=== PATIENT | male | born 1935 | race Caucasian/White ===

== ENCOUNTER 2020-08-15 06:36 | Outpatient (REF) | payer MEDICARE, SELFPAY ==
[2020-08-15 07:16] LABS: MANUAL DIFF FLAG NO
[2020-08-15 07:34] LABS: Basophils Absolute Auto 0.1 X10*3/uL (0.0-0.2); Basophils Percent Auto 1.5 % (0-2); Eosinophils Absolute Auto 0.5 X10*3/uL (0.0-0.4); Hematocrit 40.2 % (42-52); Hemoglobin 13.1 g/dl (14.0-18.0); Imm Gran Abs Auto 0.01 X10*3/uL (0.00-0.03); Imm Gran Pct Auto 0.1 % (0.0-0.4); Immature Retic Fraction 2.7 % (2.3-13.4); Lymphocytes Absolute Auto 1.7 X10*3/uL (1.2-4.9); Lymphocytes Percent Auto 23.2 % (20-40); Mean Corpuscular HGB Conc 32.6 g/dl (31.0-36.0); Mean Platelet Volume 9.7 fL (9.4-12.4); Monocytes Absolute Auto 0.5 X10*3/uL (0.1-1.2); Monocytes Percent Auto 6.8 % (2-11); Neutrophils Absolute Auto 4.5 X10*3/uL (2.0-8.3); Neutrophils Percent Auto 61.4 % (45-73); Platelet Count 233 X10*3/uL (160-400); Red Blood Count 4.37 X10*6/uL (4.60-5.80); Red Cell Distribution Width 13.7 % (11.0-16.0); Retic HGB Equivalent 34.6 pg (30.0-35.0); Reticulocyte Percent 0.9 % (0.5-1.8); Reticulocytes Absolute 0.041 X10*6/uL (0.026-0.095); White Blood Count 7.3 X10*3/uL (4.8-10.8)
[2020-08-15 07:49] LABS: Alanine Aminotransferase 16 U/L (0-40); Albumin Level 3.9 g/dL (3.5-5.0); Alkaline Phosphatase 50 U/L (39-117); Anion Gap 12 (12-20); Aspartate Amino Transferase 20 U/L (5-37); Bilirubin Total 0.8 mg/dL (0.0-1.0); Blood Urea Nitrogen 22 mg/dL (9-16); C Reactive Protein 0.11 mg/dL (< or = 0.50); Calcium 9.1 mg/dL (8.4-10.2); Carbon Dioxide 26 mmol/L (22-29); Chloride 107 mmol/L (96-108); Cholesterol 144 mg/dL; Estimated Glomerular Filt Rate > 60; Glucose Fasting 90 mg/dL (60-99); HDL Cholesterol 42 mg/dL; Iron 81 mcg/dL (45-160); LDL Cholesterol Calculated 88 mg/dl; Percent Iron Saturation 38 % (15-50); Potassium 4.1 mmol/L (3.3-5.1); Sodium 141 mmol/L (135-145); Total Iron Binding Capacity 211 mcg/dL (228-428); Total Protein 7.2 g/dL (6.5-8.0); Triglycerides 70 mg/dL; Unsaturated Iron Binding 130 ug/dL
[2020-08-15 07:50] LABS: B Type Natriuretic Peptide 180 pg/mL (<100)
[2020-08-15 08:11] LABS: Ferritin 249 ng/mL (20-250); Thyroid Stimulating Hormone 4.13 uIU/mL (0.32-4.0); Vitamin D 25-OH Total 36.5 ng/mL (>30)
[2020-08-15 08:15] LABS: T4 Thyroxine 4.6 ug/dL (4.5-12.0)
[2020-08-15 08:16] LABS: Erythrocyte Sedimentation Rate 10 MM/HR (0-15)
[2020-08-15 09:15] LABS: Folate > 20.0 ng/mL (> or = 4.0); Vitamin B12 976 pg/mL (200-900)
== END 2020-08-15 06:37 | disposition home or self-care (01) ==
LOC: HO.LAB 06:36
PROVIDERS: Referring Provider Internal Medicine; Visit Provider Internal Medicine
DX: M81.0 Age-related osteoporosis without current pathological fracture (principal); G47.00 Insomnia, unspecified; N40.0 Benign prostatic hyperplasia without lower urinary tract symptoms; I35.0 Nonrheumatic aortic (valve) stenosis; R94.6 Abnormal results of thyroid function studies
CPT/HCPCS: 36415; 80053; 80061; 82306; 82607; 82728; 82746; 83540; 83880; 84436; 84443; 85025; 85045; 85652; 86140

== ENCOUNTER 2020-08-20 08:18 | Emergency (ER) | payer MEDICARE, SELFPAY ==
--- NOTE | ~2020-08-20 | XR_ITS ---
EXAMINATION: XR CHEST CLINICAL INFORMATION: Syncope COMPARISON: Previous chest x-rays from 2015 and 2016 TECHNIQUE: 2 views of the chest were obtained. FINDINGS: The cardiac silhouette is upper normal in size. There is volume loss to the right upper lobe and retraction of the right pulmonary hilum. There is increasing pleural and parenchymal disease in the right upper lobe. The lungs are otherwise clear. There is no pleural effusion or pneumothorax. There are degenerative changes of the spine. XR/XR chest 2V IMPRESSION: Increasing volume loss to the right upper lobe and increasing pleural and parenchymal disease compared to previous chest x-rays from 2015 and 2016. Infectious, inflammatory and neoplastic processes should be considered. This could be better assessed with chest CT scan if clinically indicated.
--- NOTE | ~2020-08-20 | CT_ITS ---
EXAMINATION: CT HEAD WITHOUT CONTRAST CLINICAL INFORMATION: Syncope. Head trauma. COMPARISON: None TECHNIQUE: Contiguous axial imaging was performed from the skull base to vertex without intravenous administration of contrast. This CT examination was performed using dose optimization techniques as appropriate, variously including the following: *Automated exposure control *Adjustment of mA and/or kV according to patient size (this includes techniques or standardized protocols for targeted exams where dose is matched to indication/reason for exam; i.e. extremities or head) *Use of iterative reconstruction technique DLP: 854 mGy-cm FINDINGS: There is no evidence of an extra-axial collection. There is no evidence of intra-axial or extra-axial hemorrhage. The ventricles and extra-axial CSF spaces are prominent suggestive of generalized atrophy. There is nonspecific periventricular white matter disease. There is an old right basal ganglia lacunar infarct. No mass, mass effect or acute infarct is seen. No skull fracture is seen. There is left maxillary sinus disease. Paranasal sinuses, mastoid air cells and middle ears are otherwise clear. CT/CT head/brain wo con IMPRESSION: No acute findings. Generalized atrophy, nonspecific periventricular white matter disease and old right basal ganglia lacunar infarct. Left maxillary sinus disease.
--- NOTE | 2020-08-20 08:25 | ECG_ITS ---
Test Reason : SYNCOPE Blood Pressure : / mmHG Vent. Rate : 057 BPM Atrial Rate : 057 BPM P-R Int : 240 ms QRS Dur : 104 ms QT Int : 436 ms P-R-T Axes : 064 -64 024 degrees QTc Int : 424 ms Sinus bradycardia with 1st degree A-V block Left anterior fascicular block Septal infarct (cited on or before 06-FEB-2016) Abnormal ECG When compared with ECG of 08-FEB-2016 07:42, No significant change was found Referred By: Palma Ramirez Electronically Signed By:Ian Hedrick
[2020-08-20 08:29] VITALS: BP 122/80; BP 145/61; PULSE 57; PULSE 60; RESP 16; TEMP 36.5; O2SAT 99; BMI 22.4
--- NOTE | 2020-08-20 08:59 | ED.SYNCOPE ---
HPI - Syncope General Chief Complaint: Syncope Stated Complaint: syncope Time Seen by Provider: 08/20/20 08:25 Source: patient and EMS Mode of arrival: EMS Limitations: no limitations History of Present Illness HPI narrative: 85-year-old male with a past medical history of osteoporosis, benign prostatic hyperplasia and severe aortic stenosis on echocardiogram 05/2019 (normal LV chamber size and systolic function with LVEF 60%) here status post syncopal episode. Patient tells me that today he was on his morning walk when he started to feel lightheaded and sat down. He tells me the next thing he knew he was lying on the ground being aroused by a aide at the [employer]. He tells me that he was incontinent of urine. He was brought in by EMS. He denies presyncopal symptoms of palpitations, chest pain or shortness of breath. He tells me that he had a similar episode on Saturday of this week in which he felt very lightheaded and then woke up on the ground covered in sweat. On arrival to the ER he is feeling improved. He does have some mild nausea but denies any other symptoms. He tells me that he is followed by [facility] Dr. Nobles and last saw him May of 2020. At that time it was recommended that he speak to the cardiothoracic team about having aortic valve replacement however the patient declined this due to many concerns some of which include risk for COVID-19 infection. He tells me that he has a follow-up appointment this November and an echocardiogram at that time. He tells me he is unhappy being here is he is worried about COVID and does not want to stay in the hospital. Related Data Previous Rx's Medication Instructions Recorded alendronate 70 mg tablet 70 mg PO QWEEK #12 cap 06/01/20 Allergies Allergy/AdvReac Type Severity Reaction Status Date / Time No Known Allergies Allergy Unverified 03/17/20 15:31 Review of Systems Review of Systems: Yes all other systems are reviewed and are negative Constitutional: Constitutional: Reports no additional constitutional complaints, Denies body ache(s), Denies chills, Denies fever(s), Denies headache(s) and Denies weakness Eyes: Eyes: Reports no additional eye complaints and Denies change in vision ENT: Reports system reviewed and no additional complaints, except as documented, Reports dizziness, Denies headache(s), Denies nasal congestion, Denies nasal discharge and Denies neck pain Cardiovascular: Cardiovascular: Reports no additional cardiovascular complaints, Denies chest pain, Reports syncope, Denies leg edema and Denies dyspnea Respiratory: Respiratory: Reports no additional respiratory complaints, Denies cough and Denies dyspnea Gastrointestinal: Gastrointestinal: Reports no additional gastrointestinal complaints, Denies abdominal pain, Denies diarrhea, Reports nausea and Denies vomiting Genitourinary: Genitourinary: Denies urinary incontinence Musculoskeletal: Musculoskeletal: Reports no additional musculoskeletal complaints, Denies back pain, Denies arthralgias, Denies joint swelling, Denies neck pain, Denies numbness and Denies tingling Integumentary/Breasts: Skin/Breast: Reports system reviewed and no additional complaints, except as docu and Denies rash Neurologic: Reports system reviewed and no additional complaints, except as documented, Denies Abnormal speech present, Reports dizziness, Reports syncope, Denies headache(s), Denies numbness, Denies tingling and Denies weakness PMFSH Past Medical History Attestation statement: The following information was validated with the patient. Source: old records reviewed and nursing notes reviewed Medical History BPH (benign prostatic hyperplasia) Degenerative disc disease Insomnia Left carotid stenosis Osteoporosis Pulmonary nodule Severe aortic stenosis Surgical History H/O right inguinal hernia repair History of tonsillectomy and adenoidectomy Trochanteric fracture of right femur Social History Social History Advance Directives: No Advance Directives Information Provided: Yes Physical Exam Vital Signs: Vital Signs: Last Vital Signs Temp 97.7 F 08/20/20 08:29 Pulse 90 08/20/20 14:05 Resp 20 08/20/20 14:05 BP 138/69 08/20/20 14:05 Pulse Ox 99 08/20/20 14:05 Body Mass Index 22.4 Const: General: cooperative, comfortable and no acute distress Orientation/consciousness: patient oriented x3 Limitations: no limitations HENMT: Head: Yes normal to inspection Ears: hearing grossly normal bilaterally General nose exam: Normal external nose present Face and sinus: Yes normal facial exam Mouth: Normal oral and palatal mucosa present Throat: Yes posterior oropharynx normal Eyes: General: appearance normal, both eyes and all related structures Pupils: Equal, round and reactive pupils present Neck: Neck: Yes normal visual inspection Chest: Chest palpation & inspection: normal inspection of the chest Resp: Effort & Inspection: normal respiratory effort Auscultation: clear to auscultation bilaterally Cardio: Rate: regular rate Rhythm: regular rhythm Peripheral pulses: Peripheral pulses 2+ throughout GI: Inspection: Yes normal to inspection Palpation (GI): Soft to palpation and nontender Auscultation: normal bowel sounds Back/Spine/Pelvis: Thoracic/Lumbar Spine: thoracic and lumbar spine normal to inspection Skin: General skin exam: no rashes or lesions noted Neuro: General: patient oriented x3, no focal motor deficits and normal sensation to monofilament Cranial nerves: Yes Equal, round and reactive pupils present Cognition (Neuro): normal cognition Speech: No Abnormal speech present Gait exam (Neuro): Normal gait present Motor exam (neuro): 5/5 motor strength present throughout Extrem: General: Yes normal to inspection NIH Stroke Scale Internal: Initial- Upon Arrival Level of Consciousness: Alert Level of Consciousness Questions: Answers both questions correctly Level of Consciousness Commands: Performs both tasks correctly Best Gaze: Normal Visual: No visual loss Facial Palsy: Normal Motor Arm (Right): No drift Motor Arm (Left): No drift Motor Leg (Right): No drift Motor Leg (Left): No drift Limb Ataxia: Absent Sensory: Normal Best Language: No aphasia Dysarthia: Normal Extinction and Inattention: No abnormality Score: 0 Course Course Course Narrative: 85 yo male with past medical history of BPH, osteoporosis, severe aortic stenosis here s/p syncopal episode. Patient tells me this is his syncopal episode. Followed by Dr Nobles at [facility] who has recommended consult for AVR in the past but patient has refused d/t multiple concerns including but not limited to COVID risk. Patient initially refused transport from EMS and they were on scene for 1 hr before convincing the patient to come to the ED. Patient tells me he does not want to be admitted to the hospital but agrees to have testing done in the hospital. On arrival stable vital signs. Complaining of some nausea. Will check EKG, CXR, labs, UA, CT head. 1000-After CT scan patient vomiting x 1 with some associated dizziness. Went to evaluate the patient. Normal visual exam, normal cerebellar function, normal gait. Consider cerebellar infarct however normal neurological exam with negative score with 2nd episode this week so not TPA candidate. However d/t age and comorbidities consider obtaining MRI brain. Labs reviewed which show mildly elevated troponin which is likely from underlying aortic stenosis and not ACS. Plan for repeat 3 hr troponin. Mildly positive orthostatics. Will order gentle IV hydration (500ml). 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 CXR shows increasing volume loss and increasing pleural and parenchymal disease on CXR concerning for infectious, inflammatory and neoplastic process. Discussed CT findings with patient. Discussed CXR and recommended he f/u with his PCP for outpatient CT chest. No cough or SOB. Stable saturations. Less likely infectious with no cough, fever or leukocytosis. I discussed with patient I would like to obtain an MRI of the brain however he declined this. He tells me he has severe claustrophobia and offered pre-medication but patient declines this. He is aware he may have posterior stroke causing his symptoms and his symptoms may progress or worsen or cause debilitating neurological symptoms. Plan for NSB, antiemetic, repeat troponin. Patient is agreeable to this then wants discharge. 1330-Repeat troponin flat. I again went to speak to the patient and recommended he stay in the hospital and be admitted but he declined this. I again recommended obtaining an MRI of his brain to r/o acute CVA but patient refuses. I offered to call his and discuss all this with her but he tells me he does not want me to speak to anyone in his family. As he is his own HCP and alert and oriented I have respected his wishes. He will sign out against medical advice. I have explained to him he is welcome to return at any time. I spent >1 hr speaking to this patient about his care. MDM - Syncope MDM Narrative Medical decision making narrative: Worsening aortic stenosis, arrythmia, ACS, CVA vs lesion vs ICH, electrolyte abnormality, anemia, orthostatic hypotension, underlying infection (PNA, UTI) Medical Records Attestation: I reviewed the patient's medical records. Lab Data Attestation: I reviewed the patient's lab results. Result diagrams: 08/20/20 09:16 08/20/20 09:16 Labs: Lab Results 08/20/20 08/20/20 08/20/20 Range/Units 09:16 09:16 09:16 WBC 8.2 (4.8-10.8) X10*3/uL RBC 4.32 L (4.60-5.80) X10*6/uL Hgb 13.0 L (14.0-18.0) g/dl Hct 39.3 L (42-52) % MCV 91.0 (80-98) fL MCH 30.1 (27.0-33.0) pg MCHC 33.1 (31.0-36.0) g/dl RDW 13.4 (11.0-16.0) % Plt Count 210 (160-400) X10*3/uL MPV 9.8 (9.4-12.4) fL Immature Gran % (Auto) 0.2 (0.0-0.4) % Neut % (Auto) 79.7 H (45-73) % Lymph % (Auto) 11.8 L (20-40) % [place] % (Auto) 5.6 (2-11) % Eos % (Auto) 1.8 (0-4) % Baso % (Auto) 0.9 (0-2) % Lymph # (Auto) 1.0 L (1.2-4.9) X10*3/uL [place] # (Auto) 0.5 (0.1-1.2) X10*3/uL Eos # (Auto) 0.2 (0.0-0.4) X10*3/uL Baso # (Auto) 0.1 (0.0-0.2) X10*3/uL Abs Immat Gran (auto) 0.02 (0.00-0.03) X10*3/uL Absolute Neuts (auto) 6.6 (2.0-8.3) X10*3/uL Absolute Nucleated RBC 0.000 (0.0-0.012) X10*3/uL Nucleated RBC % (auto) 0.0 (0.0-0.2) /100WBC PT 15.0 H (10.8-13.0) SEC INR 1.3 H (0.9-1.1) Sodium 139 (135-145) mmol/L Potassium 4.8 (3.3-5.1) mmol/L Chloride 104 (96-108) mmol/L Carbon Dioxide 24 (22-29) mmol/L Anion Gap 16 (12-20) BUN 22 H (9-16) mg/dL Creatinine 0.96 (0.5-1.4) mg/dL Estim Creat Clear Calc 61.7 Estimated GFR > 60 Random Glucose 109 (60-115) mg/dL Calcium 9.0 (8.4-10.2) mg/dL Magnesium 2.0 (1.6-2.6) mg/dL Total Bilirubin 0.7 (0.0-1.0) mg/dL Direct Bilirubin 0.3 (0.0-0.5) mg/dL AST 22 (5-37) U/L ALT 18 (0-40) U/L Alkaline Phosphatase 50 (39-117) U/L Troponin I High Sens (<3.5-35.0) ng/L Total Protein 7.2 (6.5-8.0) g/dL Albumin 4.0 (3.5-5.0) g/dL 08/20/20 08/20/20 Range/Units 09:16 12:37 WBC (4.8-10.8) X10*3/uL RBC (4.60-5.80) X10*6/uL Hgb (14.0-18.0) g/dl Hct (42-52) % MCV (80-98) fL MCH (27.0-33.0) pg MCHC (31.0-36.0) g/dl RDW (11.0-16.0) % Plt Count (160-400) X10*3/uL MPV (9.4-12.4) fL Immature Gran % (Auto) (0.0-0.4) % Neut % (Auto) (45-73) % Lymph % (Auto) (20-40) % [place] % (Auto) (2-11) % Eos % (Auto) (0-4) % Baso % (Auto) (0-2) % Lymph # (Auto) (1.2-4.9) X10*3/uL [place] # (Auto) (0.1-1.2) X10*3/uL Eos # (Auto) (0.0-0.4) X10*3/uL Baso # (Auto) (0.0-0.2) X10*3/uL Abs Immat Gran (auto) (0.00-0.03) X10*3/uL Absolute Neuts (auto) (2.0-8.3) X10*3/uL Absolute Nucleated RBC (0.0-0.012) X10*3/uL Nucleated RBC % (auto) (0.0-0.2) /100WBC PT (10.8-13.0) SEC INR (0.9-1.1) Sodium (135-145) mmol/L Potassium (3.3-5.1) mmol/L Chloride (96-108) mmol/L Carbon Dioxide (22-29) mmol/L Anion Gap (12-20) BUN (9-16) mg/dL Creatinine (0.5-1.4) mg/dL Estim Creat Clear Calc Estimated GFR Random Glucose (60-115) mg/dL Calcium (8.4-10.2) mg/dL Magnesium (1.6-2.6) mg/dL Total Bilirubin (0.0-1.0) mg/dL Direct Bilirubin (0.0-0.5) mg/dL AST (5-37) U/L ALT (0-40) U/L Alkaline Phosphatase (39-117) U/L Troponin I High Sens 20.2 24.2 (<3.5-35.0) ng/L Total Protein (6.5-8.0) g/dL Albumin (3.5-5.0) g/dL Imaging Data Chest x-ray: Attestation: I personally reviewed and interpreted this imaging study as follows: Radiologist's impression: IMPRESSION: Increasing volume loss to the right upper lobe and increasing pleural and parenchymal disease compared to previous chest x-rays from 2015 and 2016. Infectious, inflammatory and neoplastic processes should be considered. This could be better assessed with chest CT scan if clinically indicated. CT scan - head: Attestation: I personally reviewed and interpreted this imaging study as follows: Radiologist's impression: No acute findings. Generalized atrophy, nonspecific periventricular white matter disease and old right basal ganglia lacunar infarct. Left maxillary sinus disease. ECG Data Attestation: I personally reviewed and interpreted this ECG as follows: Interpretation: Sinus bradycardia with 1st degree AV block, normal qrs, prolonged qt Critical Care Time Critical Care Time Critical Care Time: Yes Total Critical Care Time: 90 Attestation: Lengthy discussions, re-evaluations, discussing AMA Discharge Plan Discharge Clinical Impression: Syncope, Abnormal diagnostic test result Patient Disposition: Left Against Medical Advice Instructions: Syncope (ED) Additional Instructions: Your chest x-ray shows a lesion in your right upper lobe. Recommendation is to have an outpatient CT scan of your chest which should be ordered by your PCP. Follow-up with Dr DIETRICH for this as discussed. Your CT scan also shows an old stroke. It was recommended that you stay in the hospital for additional testing but you declined this. It was then recommended you have a MRI of your brain but you declined this. You are aware that we have not found the cause of your fainting episodes. You are also aware that if you go home you may have an additional episode and fall and/or injure yourself further. You may at home. Follow-up with Dr DIETRICH and Dr Nobles next week. Prescriptions: No Action alendronate 70 mg tablet 70 mg PO QWEEK Qty: 12 RF: 3 Referrals: Esteban Dietrich MD [Primary Care Provider] - 2 days Og Nobles MD [Physician] - 2 days Stand Alone Forms: Against Medical Advice Interventions: ED Discharge Assessment Last Done: 08/20/20 14:32 Discharge Date/Time: 08/20/20 14:32
[2020-08-20 09:26] LABS: MANUAL DIFF FLAG NO
[2020-08-20 09:29] LABS: Basophils Absolute Auto 0.1 X10*3/uL (0.0-0.2); Basophils Percent Auto 0.9 % (0-2); Eosinophils Absolute Auto 0.2 X10*3/uL (0.0-0.4); Eosinophils Percent Auto 1.8 % (0-4); Hematocrit 39.3 % (42-52); Imm Gran Abs Auto 0.02 X10*3/uL (0.00-0.03); Imm Gran Pct Auto 0.2 % (0.0-0.4); Lymphocytes Percent Auto 11.8 % (20-40); Mean Corpuscular HGB Conc 33.1 g/dl (31.0-36.0); Mean Corpuscular Hemoglobin 30.1 pg (27.0-33.0); Mean Platelet Volume 9.8 fL (9.4-12.4); Monocytes Absolute Auto 0.5 X10*3/uL (0.1-1.2); Monocytes Percent Auto 5.6 % (2-11); Neutrophils Absolute Auto 6.6 X10*3/uL (2.0-8.3); Neutrophils Percent Auto 79.7 % (45-73); Platelet Count 210 X10*3/uL (160-400); Red Blood Count 4.32 X10*6/uL (4.60-5.80); Red Cell Distribution Width 13.4 % (11.0-16.0); White Blood Count 8.2 X10*3/uL (4.8-10.8)
[2020-08-20 09:36] LABS: INTERNATIONAL NORM RATIO 1.3 (0.9-1.1)
[2020-08-20 10:01] LABS: Alanine Aminotransferase 18 U/L (0-40); Alkaline Phosphatase 50 U/L (39-117); Anion Gap 16 (12-20); Aspartate Amino Transferase 22 U/L (5-37); Bilirubin Direct 0.3 mg/dL (0.0-0.5); Bilirubin Total 0.7 mg/dL (0.0-1.0); Blood Urea Nitrogen 22 mg/dL (9-16); Carbon Dioxide 24 mmol/L (22-29); Chloride 104 mmol/L (96-108); Creatinine Clr Calc Pharmacy 61.7; Estimated Glomerular Filt Rate > 60; Glucose Random 109 mg/dL (60-115); Potassium 4.8 mmol/L (3.3-5.1); Sodium 139 mmol/L (135-145); Total Protein 7.2 g/dL (6.5-8.0)
[2020-08-20 10:03] LABS: Troponin-I High Sensitivity 20.2 ng/L (<3.5-35.0)
[2020-08-20 10:18] VITALS: BP 167/60; PULSE 67
[2020-08-20 10:19] VITALS: BP 147/57; BP 150/63; PULSE 63; PULSE 79
[2020-08-20] MEDS: 0.9 % Sodium Chloride 500 ML 999 ML IV (10:29)
[2020-08-20] MEDS: ondansetron HCL 4 MG/2 ML VIAL IVPUSH (10:29)
[2020-08-20 13:14] LABS: Troponin-I High Sensitivity 24.2 ng/L (<3.5-35.0)
[2020-08-20 14:05] VITALS: BP 138/69; PULSE 90; RESP 20; O2SAT 99
== END 2020-08-20 14:32 | disposition left against medical advice (07) ==
PROVIDERS: Nurse Practitioner Family; Emergency Provider Emergency Medicine; PCP Internal Medicine
DX: R55 Syncope and collapse (principal); R91.8 Other nonspecific abnormal finding of lung field
CPT/HCPCS: 36415; 70450; 71046; 80048; 80076; 83735; 84484; 85025; 85610; 93005; 96361; 96374; 99283; 99291; 99292; J2405

== ENCOUNTER 2020-11-21 06:50 | Outpatient (REF) | payer MEDICARE, SELFPAY ==
[2020-11-21 07:21] LABS: MANUAL DIFF FLAG NO
[2020-11-21 07:35] LABS: Basophils Absolute Auto 0.1 X10*3/uL (0.0-0.2); Eosinophils Absolute Auto 0.5 X10*3/uL (0.0-0.4); Eosinophils Percent Auto 5.1 % (0-4); Hematocrit 40.9 % (42-52); Hemoglobin 13.4 g/dl (14.0-18.0); Imm Gran Abs Auto 0.03 X10*3/uL (0.00-0.03); Imm Gran Pct Auto 0.3 % (0.0-0.4); Lymphocytes Absolute Auto 1.3 X10*3/uL (1.2-4.9); Lymphocytes Percent Auto 14.2 % (20-40); Mean Corpuscular HGB Conc 32.8 g/dl (31.0-36.0); Mean Corpuscular Hemoglobin 29.9 pg (27.0-33.0); Mean Corpuscular Volume 91.3 fL (80-98); Mean Platelet Volume 9.6 fL (9.4-12.4); Monocytes Absolute Auto 0.7 X10*3/uL (0.1-1.2); Monocytes Percent Auto 8.1 % (2-11); Neutrophils Absolute Auto 6.4 X10*3/uL (2.0-8.3); Neutrophils Percent Auto 71.3 % (45-73); Platelet Count 198 X10*3/uL (160-400); Red Blood Count 4.48 X10*6/uL (4.60-5.80); Red Cell Distribution Width 13.2 % (11.0-16.0)
[2020-11-21 08:31] LABS: Alanine Aminotransferase 15 U/L (0-40); Albumin Level 3.9 g/dL (3.5-5.0); Alkaline Phosphatase 55 U/L (39-117); Anion Gap 13 (12-20); Aspartate Amino Transferase 19 U/L (5-37); Bilirubin Total 0.5 mg/dL (0.0-1.0); Blood Urea Nitrogen 25 mg/dL (9-16); Carbon Dioxide 25 mmol/L (22-29); Chloride 105 mmol/L (96-108); Cholesterol 152 mg/dL; Estimated Glomerular Filt Rate > 60; Glucose Random 94 mg/dL (60-115); HDL Cholesterol 43 mg/dL; LDL Cholesterol Calculated 97 mg/dl; Potassium 3.8 mmol/L (3.3-5.1); Sodium 139 mmol/L (135-145); Total Protein 7.3 g/dL (6.5-8.0); Triglycerides 64 mg/dL
[2020-11-21 08:32] LABS: Free T4 (Free Thyroxine) 0.82 ng/dL (0.71-1.85)
== END 2020-11-21 06:51 | disposition home or self-care (01) ==
LOC: HO.LAB 06:50
PROVIDERS: PCP Internal Medicine; Visit Provider Internal Medicine
DX: I25.10 Atherosclerotic heart disease of native coronary artery without angina pectoris (principal); E78.00 Pure hypercholesterolemia, unspecified
CPT/HCPCS: 36415; 80053; 80061; 84439; 84443; 85025

== ENCOUNTER 2020-12-21 09:43 | Outpatient (REF) | payer MEDICARE, SELFPAY ==
--- NOTE | ~2020-12-21 | FL_ITS ---
EXAMINATION: FL BARIUM SWALLOW CLINICAL INFORMATION: Dysphagia. COMPARISON: None TECHNIQUE: Barium swallow examination is performed using fluoroscopic evaluation in addition to multiple fluoroscopic spot views. The patient is imaged both upright and prone and using both thick and thin sulfate along with effervescent granules. Fluoroscopy time: 1.7 minutes DAP: 4.497 Gycm2 Images: 34 FINDINGS: Following oral administration of thin, thick barium and barium-coated turkey, there is normal propagation of bolus from the oral cavity through a tortuous and ectatic proximal thoracic esophagus into mid and distal esophagus without obstruction or narrowing. The tortuosity of proximal thoracic esophagus and trachea is noted secondary to significant scarring in the right upper lobe. No laryngeal penetration or aspiration was seen. Incidentally noted is aortic stent valve recently inserted as per patient. FL/FL barium swallow IMPRESSION: Tortuous and ectatic proximal thoracic esophagus and proximal trachea secondary to right upper lobe scarring. No intraluminal filling defect or narrowing seen. The GE junction is widely patent.
== END 2020-12-21 09:44 | disposition home or self-care (01) ==
LOC: HO.XRAY 09:43
PROVIDERS: PCP Internal Medicine; Visit Provider Internal Medicine
DX: K22.8 Other specified diseases of esophagus (principal)
CPT/HCPCS: 74220

== ENCOUNTER 2021-03-22 13:07 | Outpatient (REF) | payer MEDICARE, SELFPAY | END 2021-03-22 13:08 | disposition home or self-care (01) | LOC: HO.LAB 13:07 | PROVIDERS: PCP Internal Medicine; Visit Provider Internal Medicine | DX: Z20.822 Contact with and (suspected) exposure to COVID-19 (principal) | CPT/HCPCS: C9803; U0003; U0005 ==

== ENCOUNTER 2021-08-29 10:57 | Outpatient (REF) | payer MEDICARE, SELFPAY ==
[2021-08-29 11:25] LABS: MANUAL DIFF FLAG NO
[2021-08-29 11:50] LABS: Basophils Absolute Auto 0.1 X10*3/uL (0.0-0.2); Basophils Percent Auto 1.3 % (0-2); Eosinophils Absolute Auto 0.4 X10*3/uL (0.0-0.4); Eosinophils Percent Auto 5.1 % (0-4); Hematocrit 40.4 % (42.0-52.0); Hemoglobin 12.8 g/dl (14.0-18.0); Imm Gran Abs Auto 0.02 X10*3/uL (0.00-0.03); Imm Gran Pct Auto 0.3 % (0.0-0.4); Lymphocytes Absolute Auto 1.8 X10*3/uL (1.2-4.9); Lymphocytes Percent Auto 25.6 % (20-40); Mean Corpuscular HGB Conc 31.7 g/dl (31.0-36.0); Mean Corpuscular Hemoglobin 29.6 pg (27.0-33.0); Mean Corpuscular Volume 93.5 fL (80.0-98.0); Mean Platelet Volume 9.8 fL (9.4-12.4); Monocytes Absolute Auto 0.6 X10*3/uL (0.1-1.2); Monocytes Percent Auto 8.9 % (2-11); Neutrophils Percent Auto 58.8 % (45-73); Platelet Count 223 X10*3/uL (160-400); Red Blood Count 4.32 X10*6/uL (4.60-5.80); Red Cell Distribution Width 13.6 % (11.0-16.0); White Blood Count 6.9 X10*3/uL (4.8-10.8)
[2021-08-29 12:49] LABS: Anion Gap 12 (12-20); Blood Urea Nitrogen 22 mg/dL (9-16); Calcium 9.3 mg/dL (8.4-10.2); Carbon Dioxide 29 mmol/L (22-29); Chloride 103 mmol/L (96-108); Estimated Glomerular Filt Rate > 60; Glucose Random 88 mg/dL (60-115); Potassium 5.1 mmol/L (3.3-5.1); Sodium 139 mmol/L (135-145)
== END 2021-08-29 10:58 | disposition home or self-care (01) ==
LOC: HO.LAB 10:57
PROVIDERS: PCP Internal Medicine; Visit Provider Internal Medicine Cardiovascular Disease
DX: I35.0 Nonrheumatic aortic (valve) stenosis (principal)
CPT/HCPCS: 36415; 80048; 85025

== ENCOUNTER 2021-12-25 07:05 | Outpatient (REF) | payer MEDICARE, SELFPAY ==
[2021-12-25 07:20] LABS: MANUAL DIFF FLAG NO
[2021-12-25 07:41] LABS: Basophils Absolute Auto 0.1 X10*3/uL (0.0-0.2); Basophils Percent Auto 1.1 % (0-2); Eosinophils Absolute Auto 0.8 X10*3/uL (0.0-0.4); Hematocrit 41.8 % (42.0-52.0); Hemoglobin 13.5 g/dl (14.0-18.0); Imm Gran Abs Auto 0.02 X10*3/uL (0.00-0.03); Imm Gran Pct Auto 0.3 % (0.0-0.4); Lymphocytes Absolute Auto 1.8 X10*3/uL (1.2-4.9); Lymphocytes Percent Auto 25.8 % (20-40); Mean Corpuscular HGB Conc 32.3 g/dl (31.0-36.0); Mean Corpuscular Hemoglobin 29.2 pg (27.0-33.0); Mean Corpuscular Volume 90.5 fL (80.0-98.0); Mean Platelet Volume 9.3 fL (9.4-12.4); Monocytes Absolute Auto 0.6 X10*3/uL (0.1-1.2); Neutrophils Absolute Auto 3.7 x10*3/uL (2.0-8.3); Neutrophils Percent Auto 52.8 % (45-73); Platelet Count 208 X10*3/uL (160-400); Red Blood Count 4.62 X10*6/uL (4.60-5.80); Red Cell Distribution Width 14.1 % (11.0-16.0)
[2021-12-25 08:09] LABS: Alanine Aminotransferase 16 U/L (0-40); Albumin Level 4.1 g/dL (3.5-5.0); Alkaline Phosphatase 54 U/L (39-117); Anion Gap 12 (12-20); Aspartate Amino Transferase 19 U/L (5-37); Bilirubin Total 0.4 mg/dL (0.0-1.0); Blood Urea Nitrogen 23 mg/dL (9-16); C Reactive Protein 0.37 mg/dL (< or = 0.50); Calcium 9.8 mg/dL (8.4-10.2); Carbon Dioxide 26 mmol/L (22-29); Chloride 106 mmol/L (96-108); Cholesterol 163 mg/dL; Estimated Glomerular Filt Rate > 60; Glucose Random 91 mg/dL (60-115); HDL Cholesterol 40 mg/dL; LDL Cholesterol Calculated 106 mg/dl; Potassium 4.4 mmol/L (3.3-5.1); Sodium 140 mmol/L (135-145); Total Protein 7.6 g/dL (6.5-8.0); Triglycerides 88 mg/dL
[2021-12-25 08:10] LABS: B Type Natriuretic Peptide 136 pg/mL (<100)
[2021-12-25 08:27] LABS: Erythrocyte Sedimentation Rate 14 MM/HR (0-15)
[2021-12-25 08:31] LABS: Free T4 (Free Thyroxine) 0.91 ng/dL (0.71-1.85); Thyroid Stimulating Hormone 4.32 uIU/mL (0.32-4.0)
[2021-12-25 09:16] LABS: Folate > 20.0 ng/mL (> or = 4.0); Vitamin B12 926 pg/mL (200-900)
== END 2021-12-25 07:06 | disposition home or self-care (01) ==
LOC: HO.LAB 07:05
PROVIDERS: Absent Provider Internal Medicine; PCP Internal Medicine; Visit Provider Internal Medicine
DX: I25.10 Atherosclerotic heart disease of native coronary artery without angina pectoris (principal); E78.00 Pure hypercholesterolemia, unspecified
CPT/HCPCS: 36415; 80053; 80061; 82607; 82746; 83880; 84439; 84443; 85025; 85652; 86140

== ENCOUNTER 2022-01-12 14:55 | Outpatient (REF) | payer MEDICARE, SELFPAY ==
--- NOTE | ~2022-01-12 | MM_ITS ---
EXAMINATION: BONE DENSITOMETRY CLINICAL INDICATION: Age-related osteoporosis without current pathological fracture. COMPARISON: Previous BD dated 07/08/2018 and baseline BD dated 04/13/2016. TECHNIQUE: Using a [employer] DXA System (software version: 13.1) manufactured by [employer] dual-energy x-ray absorptiometry was performed of the lumbar spine and left hip. The images are of good technical quality. Summary results are attached. FINDINGS: AP SPINE L1-L2 (excluding L3 and L4): The data of L1-L4 has been changed to exclude the L3 and L4 vertebral bodies, because degenerative changes at these levels may cause overestimation of lumbar spine density. Current: BMD 1.059 g/cm2, Z-score -0.3, T-score -1.2, osteopenia, 8.1% increase from previous, 11.0% increase from baseline (<5% change is not significant). Prior: BMD 0.980 g/cm2. Baseline: BMD 0.954 g/cm2. LEFT FEMUR, NECK: Current: BMD 0.618 g/cm2, Z-score -1.7, T-score -3.5, osteoporosis. Prior: BMD 0.569 g/cm2. Baseline: BMD 0.487 g/cm2. LEFT FEMUR, TOTAL: Current: BMD 0.728 g/cm2, Z-score -1.2, T-score -2.6, osteoporosis, 17.0% increase from previous, 38.4% increase from baseline (<5% change is not significant). Prior: BMD 0.622 g/cm2. Baseline: BMD 0.526 g/cm2. IDENTIFIED RISK FACTORS: Family history (parental hip fracture), history of fracture (adult). HISTORY OF FRACTURE: Femur/hip. MEDICATIONS: Bisphosphonate, multivitamin. MM/XR DEXA axial skeleton IMPRESSION: 1. DIAGNOSIS: Osteoporosis based on the lowest T-score value of -3.5 in the femoral neck applying World Health Organization criteria. 2. 10-YEAR FRACTURE RISK PREDICTION, FRAX: According to the guidelines, FRAX calculation should only be performed on patients in the osteopenia bone density category. Therefore, FRAX was not performed on this patient. 3. Treatment Recommendations: NOF guidelines recommend consideration for treatment in postmenopausal women and men age 50 and older presenting with the following: -A hip or vertebral (clinical or morphometric) fracture. -T-score less than or equal to -2.5 at the femoral neck or spine after appropriate evaluation to exclude secondary causes. -Low bone mass at the hip or spine and a 10-year fracture probability by FRAX of greater than or equal to 3% for hip fracture or greater than or equal to 20% for major osteoporotic fracture based on the [place] adapted WHO algorithm. 4. Other Recommendations: All treatment decisions require clinical judgment and consideration of individual patient factors, including patient preferences, comorbidities, previous drug use, risk factors not captured in the FRAX model (e.g. frailty, falls, vitamin D deficiency, increased bone turnover, interval significant decline in bone density) and possible under or overestimation of fracture risk by FRAX. Additional medical evaluation for secondary cause of low bone mineral density may be appropriate. FUTURE SCAN RECOMMENDATION: People with diagnosed cases of osteoporosis or at high risk for fracture should have regular bone mineral density tests. For patients eligible for Medicare, routine testing is allowed once every 2 years. The testing frequency can be increased to one year for patients who have rapidly progressing disease, those who are receiving or discontinuing medical therapy to restore bone mass, or have additional risk factors.
== END 2022-01-12 14:56 | disposition home or self-care (01) ==
LOC: HO.MAMMO 14:55
PROVIDERS: PCP Internal Medicine; Visit Provider Internal Medicine
DX: M81.0 Age-related osteoporosis without current pathological fracture (principal); Z79.899 Other long term (current) drug therapy
CPT/HCPCS: 77080

== ENCOUNTER 2022-08-11 07:23 | Outpatient (REF) | payer MEDICARE, SELFPAY ==
[2022-08-11 07:35] LABS: MANUAL DIFF FLAG NO
[2022-08-11 07:41] LABS: Basophils Absolute Auto 0.1 X10*3/uL (0.0-0.2); Basophils Percent Auto 1.2 % (0-2); Eosinophils Absolute Auto 0.3 X10*3/uL (0.0-0.4); Eosinophils Percent Auto 6.6 % (0-4); Hematocrit 43.6 % (42.0-52.0); Hemoglobin 14.1 g/dl (14.0-18.0); Imm Gran Abs Auto 0.01 X10*3/uL (0.00-0.03); Imm Gran Pct Auto 0.2 % (0.0-0.4); Lymphocytes Absolute Auto 1.3 X10*3/uL (1.2-4.9); Lymphocytes Percent Auto 26.2 % (20-40); Mean Corpuscular HGB Conc 32.3 g/dl (31.0-36.0); Mean Corpuscular Hemoglobin 29.6 pg (27.0-33.0); Mean Corpuscular Volume 91.6 fL (80.0-98.0); Mean Platelet Volume 9.5 fL (9.4-12.4); Monocytes Absolute Auto 0.5 X10*3/uL (0.1-1.2); Monocytes Percent Auto 10.5 % (2-11); Neutrophils Absolute Auto 2.8 x10*3/uL (2.0-8.3); Neutrophils Percent Auto 55.3 % (45-73); Platelet Count 215 X10*3/uL (160-400); Red Blood Count 4.76 X10*6/uL (4.60-5.80); Red Cell Distribution Width 14.2 % (11.0-16.0)
[2022-08-11 08:22] LABS: B Type Natriuretic Peptide 168 pg/mL (<100)
[2022-08-11 08:26] LABS: Alanine Aminotransferase 19 U/L (0-40); Albumin Level 4.1 g/dL (3.5-5.0); Alkaline Phosphatase 55 U/L (39-117); Anion Gap 12 (12-20); Aspartate Amino Transferase 24 U/L (5-37); Bilirubin Total 0.6 mg/dL (0.0-1.0); Blood Urea Nitrogen 23 mg/dL (9-16); C Reactive Protein 0.47 mg/dL (< or = 0.50); Calcium 9.1 mg/dL (8.4-10.2); Carbon Dioxide 27 mmol/L (22-29); Chloride 107 mmol/L (96-108); Cholesterol 177 mg/dL; Estimated Glomerular Filt Rate > 60; Glucose Random 89 mg/dL (60-115); HDL Cholesterol 44 mg/dL; LDL Cholesterol Calculated 116 mg/dl; Potassium 4.3 mmol/L (3.3-5.1); Sodium 142 mmol/L (135-145); Total Protein 7.6 g/dL (6.5-8.0); Triglycerides 89 mg/dL
[2022-08-11 08:34] LABS: Erythrocyte Sedimentation Rate 14 MM/HR (0-15)
[2022-08-11 08:54] LABS: Folate 18.7 ng/mL (> or = 4.0); Free T4 (Free Thyroxine) 0.88 ng/dL (0.71-1.85); Thyroid Stimulating Hormone 4.94 uIU/mL (0.32-4.0); Vitamin B12 825 pg/mL (200-900)
== END 2022-08-11 07:24 | disposition home or self-care (01) ==
LOC: HO.LAB 07:23
PROVIDERS: Absent Provider Internal Medicine; PCP Internal Medicine; Visit Provider Internal Medicine
DX: I25.10 Atherosclerotic heart disease of native coronary artery without angina pectoris (principal); E78.00 Pure hypercholesterolemia, unspecified
CPT/HCPCS: 36415; 80053; 80061; 82607; 82746; 83880; 84439; 84443; 85025; 85652; 86140

== ENCOUNTER 2022-11-07 09:34 | Emergency (ER) | payer MEDICARE, SELFPAY ==
--- NOTE | ~2022-11-07 | XR_ITS ---
EXAMINATION: XR ANKLE, LEFT CLINICAL INFORMATION: Pain COMPARISON: None available. TECHNIQUE: AP, lateral, and mortise views of the left ankle. FINDINGS: Vascular calcifications are noted. There is no acute fracture or dislocation. Soft tissue increase over the lower leg and ankle laterally. XR/XR ankle LT min 3V IMPRESSION: No acute fracture or dislocation. No bony erosion or osteopenia. Mild degenerative changes and vascular calcifications.
--- NOTE | ~2022-11-07 | US_ITS ---
EXAMINATION: US VENOUS ULTRASOUND WITH DOPPLER LOWER EXTREMITY, BILATERAL CLINICAL INFORMATION: Bilateral lower extremity pain COMPARISON: None available. TECHNIQUE: Ultrasound of the deep veins is performed from the hip to the calf with compression sonography and color and pulse Doppler assessment. Spectral analysis with color-flow imaging is performed. FINDINGS: RIGHT: There is normal venous compression and respiratory variation and augmented flow. The visualized common femoral vein, superficial femoral vein, profunda femoral vein, popliteal vein, and the trifurcation region shows no evidence of deep venous thrombosis. There is no significant popliteal fossa cyst. Incidental note is made of a pseudoaneurysm arising from the right common femoral artery measuring 2.7 x 2.0 x 2.3 cm with to and fro seen at the neck. Some thrombus is seen within the pseudoaneurysm. Velocity in the neck is 379 cm/s. The length of the neck appears to be about 5 mm. LEFT: There is normal venous compression and respiratory variation and augmented flow. The visualized common femoral vein, superficial femoral vein, profunda femoral vein, popliteal vein, and the trifurcation region shows no evidence of deep venous thrombosis. There is no significant popliteal fossa cyst. If the patient's symptoms persist, followup ultrasound in 5 days 7 days might be of value to exclude proximal propagation from a non-visualized calf vein. US/US venous duplex LE BI IMPRESSION: 1. No DVT demonstrated in either lower extremity. 2. A right groin pseudoaneurysm is present which appears to be arising from the common femoral artery.
[2022-11-07 09:47] VITALS: BP 155/71; PULSE 83; RESP 16; TEMP 36.4; O2SAT 95; BMI 22.4
[2022-11-07 12:07] LABS: MANUAL DIFF FLAG NO
[2022-11-07 12:10] LABS: Basophils Absolute Auto 0.1 X10*3/uL (0.0-0.2); Basophils Percent Auto 1.2 % (0-2); Eosinophils Absolute Auto 0.2 X10*3/uL (0.0-0.4); Eosinophils Percent Auto 2.6 % (0-4); Hematocrit 43.9 % (42.0-52.0); Hemoglobin 14.3 g/dl (14.0-18.0); Imm Gran Abs Auto 0.01 X10*3/uL (0.00-0.03); Imm Gran Pct Auto 0.2 % (0.0-0.4); Lymphocytes Absolute Auto 1.2 X10*3/uL (1.2-4.9); Lymphocytes Percent Auto 20.5 % (20-40); Mean Corpuscular HGB Conc 32.6 g/dl (31.0-36.0); Mean Corpuscular Hemoglobin 29.8 pg (27.0-33.0); Mean Corpuscular Volume 91.5 fL (80.0-98.0); Mean Platelet Volume 9.5 fL (9.4-12.4); Monocytes Absolute Auto 0.5 X10*3/uL (0.1-1.2); Monocytes Percent Auto 8.3 % (2-11); Neutrophils Absolute Auto 3.9 x10*3/uL (2.0-8.3); Neutrophils Percent Auto 67.2 % (45-73); Platelet Count 201 X10*3/uL (160-400); Red Cell Distribution Width 13.9 % (11.0-16.0); White Blood Count 5.8 X10*3/uL (4.8-10.8)
[2022-11-07 12:21] LABS: INTERNATIONAL NORM RATIO 1.7 (0.9-1.1); Prothrombin Time 20.3 SEC (10.0-13.1)
[2022-11-07 12:24] LABS: Partial Thromboplastin Time 40.8 SEC (26.0-36.4)
[2022-11-07 12:43] LABS: Alanine Aminotransferase 19 U/L (0-40); Albumin Level 4.4 g/dL (3.5-5.0); Alkaline Phosphatase 52 U/L (39-117); Anion Gap 11 (12-20); Aspartate Amino Transferase 25 U/L (5-37); Bilirubin Direct 0.2 mg/dL (0.0-0.5); Bilirubin Total 0.6 mg/dL (0.0-1.0); Blood Urea Nitrogen 19 mg/dL (9-16); Calcium 9.6 mg/dL (8.4-10.2); Carbon Dioxide 28 mmol/L (22-29); Chloride 107 mmol/L (96-108); Creatinine Clr Calc Pharmacy 57.7; Estimated Glomerular Filt Rate > 60; Glucose Random 92 mg/dL (60-115); Magnesium 1.9 mg/dL (1.6-2.6); Potassium 4.4 mmol/L (3.3-5.1); Sodium 142 mmol/L (135-145); Total Protein 8.1 g/dL (6.5-8.0)
--- NOTE | 2022-11-07 16:30 | ED_ITS ---
HPI - General Adult General Chief complaint: Extremity Injury, Lower Stated complaint: Discoloration Legs Feet Time Seen by Provider: 11/07/22 16:03 Source: patient, RN notes reviewed and old records reviewed Mode of arrival: ambulatory Limitations: no limitations History of Present Illness HPI narrative: 87-year-old male past medical history significant for paroxysmal atrial fibrillation on Eliquis, TAVR repair 2 years ago, coronary artery disease, aortic stenosis, BPH, osteoporosis, hypertension, hyperlipidemia presents for evaluation of left leg swelling. patient reports for the last couple of weeks he has had swelling in his legs that he notices after he walks about 3/4 of a mile every day he states that the symptoms usually resolve overnight with his feet up he has pain to the inside of his left ankle he denies any pain or swelling to the right side he reports that he started atorvastatin 5 weeks ago and is wondering if this is the cause of his symptoms Related Data Home Medications Medication Instructions Recorded Confirmed acetaminophen 500 mg tablet 1,000 mg PO Q6H PRN 09/01/20 01/08/22 (Tylenol Extra Strength) ascorbate calcium (vitamin C) 500 500 mg PO DAILY 09/01/20 01/08/22 mg tablet betamethasone, augmented 0.05 % 1 appl topical DAILY 09/01/20 01/08/22 topical cream diphenhydramine HCl 25 mg tablet 50 mg PO BEDTIME PRN 09/01/20 01/08/22 (Benadryl Allergy) docusate sodium 100 mg capsule 100 mg PO DAILY 09/01/20 01/08/22 (Colace) melatonin 3 mg tablet 3 mg PO BEDTIME PRN 09/01/20 01/08/22 multivitamin 1 tab PO DAILY 09/01/20 01/08/22 apixaban 5 mg tablet (Eliquis) 5 mg PO BID 10/03/20 01/08/22 vit 55-iron fum,bisgly 28 1 tab PO DAILY 07/03/21 01/08/22 mg iron-folic acid 1 mg chew tablet (NataChew (Fe Bis-glycinate)) Previous Rx's Medication Instructions Recorded alendronate 70 mg tablet 70 mg PO QWEEK #12 caps 01/11/22 terazosin 5 mg capsule 5 mg PO DAILY #90 caps 10/01/22 trazodone 150 mg tablet 150 mg PO BEDTIME #90 tabs 10/01/22 Allergies Allergy/AdvReac Type Severity Reaction Status Date / Time No Known Allergies Allergy Verified 11/07/22 09:53 Review of Systems Constitutional: Constitutional: Reports as per HPI, Denies chills and Denies fever(s) Cardiovascular: Cardiovascular: Denies chest pain, Reports leg edema and Denies dyspnea Respiratory: Respiratory: Denies cough and Denies dyspnea Gastrointestinal: Gastrointestinal: Denies abdominal pain, Denies constipation and Denies vomiting Neurologic: Denies focal weakness PMFSH Past Medical History Medical History (Updated 11/07/22 @ 16:48 by Zack Gonzales) BPH (benign prostatic hyperplasia) Degenerative disc disease Exposure to COVID-19 virus Insomnia Left carotid stenosis Osteoporosis Pulmonary nodule Severe aortic stenosis Surgical History H/O right inguinal hernia repair History of appendectomy History of tonsillectomy and adenoidectomy S/P TAVR (transcatheter aortic valve replacement) Trochanteric fracture of right femur Family History Family History Father No problems noted. Mother No problems noted. Sister In good health Social History Social History Housing: House Alcohol intake: current Alcohol intake frequency: holidays/special occasions only Patient Tobacco Use Status: Never used Tobacco e-Cigarette/Vaping Use: Never Used Second Hand Smoke Exposure: No Advance Directives: No Advance Directives Information Provided: No Current occupational status: retired Cognitive needs: No Hearing needs: No Vision needs: No Physical Exam ED Vital Signs: Vital Signs - 24 hr 11/07/22 09:47 11/07/22 16:58 Temperature 97.6 F 97.7 F Pulse Rate 83 70 Respiratory Rate 16 16 Blood Pressure 155/71 H 150/71 H Pulse Oximetry 95 97 Oxygen Delivery Method Room Air Room Air BMI result Body Mass Index 22.4 Const General: healthy appearing, comfortable, no acute distress, alert and awake Nutritional Appearance: well nourished Orientation/consciousness: patient oriented x3 HENMT Head: Yes normocephalic and Yes atraumatic Eyes Eyelids: Yes eyelids normal Conjunctivae: conjunctivae normal Sclerae: sclerae normal Corneas: corneas normal Pupils: Equal, round and reactive pupils present EOM: EOMs intact bilaterally Neck Neck: Yes full ROM Resp Effort & Inspection: normal respiratory effort, able to speak in complete sentences, no audible wheezes and not labored Auscultation: clear to auscultation bilaterally Cardio Other: patient has 2+ pitting edema to just above the ankles bilaterally. There is some discoloration along the medial aspect of the left foot only. the patient is tender over the left medial malleolus without palpable deformity Rate: regular rate Rhythm: regular rhythm Skin General skin exam: elasticity normal Neuro General: patient oriented x3 Cranial nerves: Yes Equal, round and reactive pupils present and Yes Bilaterally intact EOM present Cognition (Neuro): normal cognition Course Reevaluation(s) Reevaluation #1: x-ray negative for fracture, the patient is stable for discharge Time: 17:14 Medical Decision Making Medical Decision Making [facility] Narrative: 87-year-old male with multiple past medical history on [facility] presents for evaluation of left leg swelling. His labs are relatively unremarkable. ultrasound shows a small right femoral artery pseudoaneurysm. I discussed this with Dr. Fu was happy to follow up the patient as an outpatient. there is no evidence of ischemic limb to either leg. The patient has tenderness over the left medial malleolus with ecchymosis inferior to this and edema the area is more consistent with injury then DVT, however the ultrasound was negative for DVT regardless. We added on X ray of the left ankle Differential Diagnosis dependent edema DVT Leg swelling Peripheral vascular disease ankle sprain Ankle fracture Lab Data [facility] Lab Attestation statement: I reviewed the patient's lab results. 11/07/22 12:00 11/07/22 12:00 Labs: Lab Results 11/07/22 11/07/22 11/07/22 Range/Units 12:00 12:00 12:00 WBC 5.8 (4.8-10.8) X10*3/uL RBC 4.80 (4.60-5.80) X10*6/uL Hgb 14.3 (14.0-18.0) g/dl Hct 43.9 (42.0-52.0) % MCV 91.5 (80.0-98.0) fL MCH 29.8 (27.0-33.0) pg MCHC 32.6 (31.0-36.0) g/dl RDW 13.9 (11.0-16.0) % Plt Count 201 (160-400) X10*3/uL MPV 9.5 (9.4-12.4) fL Immature Gran % (Auto) 0.2 (0.0-0.4) % Neut % (Auto) 67.2 (45-73) % Lymph % (Auto) 20.5 (20-40) % [place] % (Auto) 8.3 (2-11) % Eos % (Auto) 2.6 (0-4) % Baso % (Auto) 1.2 (0-2) % Lymph # (Auto) 1.2 (1.2-4.9) X10*3/uL [place] # (Auto) 0.5 (0.1-1.2) X10*3/uL Eos # (Auto) 0.2 (0.0-0.4) X10*3/uL Baso # (Auto) 0.1 (0.0-0.2) X10*3/uL Abs Immat Gran (auto) 0.01 (0.00-0.03) X10*3/uL Absolute Neuts (auto) 3.9 (2.0-8.3) x10*3/uL Absolute Nucleated RBC 0.000 (0.0-0.012) X10*3/uL Nucleated RBC % (auto) 0.0 (0.0-0.2) /100WBC PT 20.3 H (10.0-13.1) SEC INR 1.7 H (0.9-1.1) APTT 40.8 H (26.0-36.4) SEC Sodium 142 (135-145) mmol/L Potassium 4.4 (3.3-5.1) mmol/L Chloride 107 (96-108) mmol/L Carbon Dioxide 28 (22-29) mmol/L Anion Gap 11 L (12-20) BUN 19 H (9-16) mg/dL Creatinine 0.99 (0.5-1.4) mg/dL Estim Creat Clear Calc 57.7 Estimated GFR > 60 Random Glucose 92 (60-115) mg/dL Calcium 9.6 (8.4-10.2) mg/dL Magnesium 1.9 (1.6-2.6) mg/dL Total Bilirubin 0.6 (0.0-1.0) mg/dL Direct Bilirubin 0.2 (0.0-0.5) mg/dL AST 25 (5-37) U/L ALT 19 (0-40) U/L Alkaline Phosphatase 52 (39-117) U/L Total Creatine Kinase 160 (38-174) U/L Total Protein 8.1 H (6.5-8.0) g/dL Albumin 4.4 (3.5-5.0) g/dL Independent Interpretation I performed an independent interpretation of an: Plain X-Ray Interpretation: no acute fracture of the left ankle Discharge Plan Discharge Clinical Impression: Leg swelling, Pseudoaneurysm of femoral artery Patient Disposition: Home, Self-Care Instructions: Leg Edema (ED) Additional Instructions: your ultrasound was negative for blood clots in your legs. You had an incidental finding of a right femoral artery pseudoaneurysm follow-up with Dr. Vidal at the number provided as an outpatient for this, call tomorrow to schedule appointment your blood work was reassuring. For her leg swelling you may use compression stockings during the day and especially while you are walking but do not wear overnight you should take the rest of the week off to elevate your legs and rest avoid excessive salt and fluid intake your x-ray did not show any damage to the bones of your left ankle Prescriptions: No Action alendronate 70 mg tablet 70 mg PO QWEEK Qty: 12 3RF terazosin 5 mg capsule 5 mg PO DAILY Qty: 90 3RF trazodone 150 mg tablet 150 mg PO BEDTIME Qty: 90 3RF Eliquis 5 mg tablet 5 mg PO BID docusate sodium [Colace] 100 mg capsule 100 mg PO DAILY multivitamin Tablet 1 tab PO DAILY melatonin 3 mg tablet 3 mg PO BEDTIME PRN diphenhydramine HCl [Benadryl Allergy] 25 mg tablet 50 mg PO BEDTIME PRN acetaminophen [Tylenol Extra Strength] 500 mg tablet 1,000 mg PO Q6H PRN ascorbate calcium (vitamin C) 500 mg tablet 500 mg PO DAILY betamethasone, augmented 0.05 % cream 1 appl topical DAILY NataChew (Fe Bis-glycinate) 28 mg iron -1 mg tablet,chewable 1 tab PO DAILY Rx Instructions: may take with food >= 2 hrs before/after zinc/calcium-containing/dairy products and/or antacids Referrals: Jose Vidal MD [Physician] - (right femoral artery pseudoaneurysm)
[2022-11-07 16:58] VITALS: BP 150/71; PULSE 70; RESP 16; TEMP 36.5; O2SAT 97
== END 2022-11-07 17:57 | disposition home or self-care (01) ==
PROVIDERS: Physician Assistant; Emergency Provider Internal Medicine; PCP Internal Medicine
DX: R60.0 Localized edema (principal); I72.4 Aneurysm of artery of lower extremity; E78.00 Pure hypercholesterolemia, unspecified; I48.0 Paroxysmal atrial fibrillation; Z95.2 Presence of prosthetic heart valve; Z79.899 Other long term (current) drug therapy; Z79.01 Long term (current) use of anticoagulants
CPT/HCPCS: 36415; 73610; 80048; 80076; 82550; 83735; 85025; 85610; 85730; 93970; 99283; 99284

== ENCOUNTER 2022-11-29 07:34 | Outpatient (REF) | payer MEDICARE, SELFPAY ==
[2022-11-29 09:09] LABS: Alanine Aminotransferase 18 U/L (0-40); Aspartate Amino Transferase 21 U/L (5-37); Cholesterol 122 mg/dL; HDL Cholesterol 38 mg/dL; LDL Cholesterol Calculated 68 mg/dl; Triglycerides 84 mg/dL
== END 2022-11-29 07:35 | disposition home or self-care (01) ==
LOC: HO.LAB 07:34
PROVIDERS: PCP Internal Medicine; Visit Provider Internal Medicine
DX: I48.0 Paroxysmal atrial fibrillation (principal); I25.10 Atherosclerotic heart disease of native coronary artery without angina pectoris
CPT/HCPCS: 36415; 80061; 84450; 84460

== ENCOUNTER 2023-01-11 10:25 | Outpatient (AMB) | payer MEDICARE, SELFPAY ==
--- NOTE | 2023-01-11 10:44 | AM.OFFWIN_ITS ---
Intake Vital Signs 01/11/23 10:45 Height 6 ft BP 180/80 H Blood Pressure Location Lt brachial Position Sitting Pulse 72 Pulse Source Pulse Oximeter Temp 97.8 F Temp Source Oral Pulse Oximetry (%) 96 Oxygen Delivery Method Room Air Intake Visit Reasons: EST/possible spider bite/left hand Intake Note: pt is here for swollen left hand Patient Tobacco Use Status: Never used Tobacco Allergies No Known Allergies Allergy (Verified 01/11/23 10:45) Do you need a note to return to daycare/school/sports/work: No HPI HPI Comments History of Present Illness Details This is an 87-year-old female presenting to the office today for a sick visit. Patient states he started to notice left wrist/hand swelling and erythema about 3 days ago. He states he lives in a senior care community and had a nurse look at the area and the nurse saw what she believed to be a spider bite. Patient denies any fevers or chills. He denies any arthralgias or myalgias. He denies any chest pain or shortness of breath. He denies any injury or trauma to the wrist or recent falls. [facility] Medical History (Updated 11/08/22 @ 00:32 by Sarah Chauhan) BPH (benign prostatic hyperplasia) Degenerative disc disease Exposure to COVID-19 virus Insomnia Left carotid stenosis Osteoporosis Pulmonary nodule Severe aortic stenosis Surgical History H/O right inguinal hernia repair History of appendectomy History of tonsillectomy and adenoidectomy S/P TAVR (transcatheter aortic valve replacement) Trochanteric fracture of right femur Family History Father No problems noted. Mother No problems noted. Sister In good health Social History Housing: House Alcohol intake: current Alcohol intake frequency: holidays/special occasions only Patient Tobacco Use Status: Never used Tobacco e-Cigarette/Vaping Use: Never Used Second Hand Smoke Exposure: No Current occupational status: retired Cognitive needs: No Hearing needs: No Vision needs: No Review of Systems Const All systems reviewed & are unremarkable except as noted in HPI and below Denies body aches, Denies chills and Denies fever(s) Eyes Reports no additional complaints ENT Reports no additional complaints Card Reports no additional complaints, Denies chest pain and Denies dyspnea Resp Reports no additional complaints and Denies dyspnea GI Reports no additional complaints Reports no additional complaints Musc Reports joint swelling Skin/Breast Reports as per HPI and Reports change in pigmentation Neuro Reports no additional complaints Physical Exam Vital Signs: Last Vital Signs Temp 97.8 F 01/11/23 10:45 Pulse 72 01/11/23 10:45 BP 180/80 H 01/11/23 10:45 Pulse Ox 96 01/11/23 10:45 Oxygen Delivery Method Room Air 01/11/23 10:45 Const General: cooperative and no acute distress Orientation/consciousness: patient oriented x3 HEENT Head: Yes normal to inspection Ears: hearing grossly normal bilaterally General nose exam: Normal external nose present Face and sinus: Yes normal facial exam Mouth: Normal oral and palatal mucosa present Throat: Yes posterior oropharynx normal Cardio Rate: regular rate Rhythm: regular rhythm Heart sounds: no gallops, no murmurs and no rubs Peripheral pulses: Peripheral pulses 2+ throughout Skin Other: Erythema of the anterior and posterior aspect of the left wrist and dorsal aspect of the left hand. No fluctuance or induration to suggest abscess or drainable collection. No purulence drainage noted. No lymphangitis streaking. Neuro General: patient oriented x3 Extrem Other: Swelling of the left wrist without tenderness to palpation. Full range of motion of the left wrist. Assessment & Plan Assessment & Plan (1) Cellulitis of left wrist: Code(s): L03.114 - Cellulitis of left upper limb Plan This is an 87-year-old male who is presenting with swelling and erythema of the left wrist following a possible spider bite. Patient denies any systemic symptoms including fevers/chills or arthralgias/myalgias. Patient's history and physical is most consistent with cellulitis of the left wrist. Start p.o. cephalexin 500 mg 4 times daily times 10 days. Patient advised to keep extremity elevated and to ice the area. Patient instructed to proceed to the emergency room if he has developed fever/chills, systemic symptoms, or lymphangitic streaking. Patient verbalizes understanding and he is agreeable with the plan. Medications: New cephalexin 500 mg PO QID 10 days 40 caps 0RF Coding Level of Care Code Est Pt Level 3 (78466) Diagnoses Cellulitis of left wrist L03.114
[2023-01-11 10:45] VITALS: BP 180/80; PULSE 72; TEMP 36.6; O2SAT 96
== END 2023-01-11 11:39 | disposition home or self-care (01) ==
PROVIDERS: PCP Internal Medicine; Visit Provider Physician Assistant Medical
DX: L03.114 Cellulitis of left upper limb (principal)
CPT/HCPCS: 99213

== ENCOUNTER 2023-01-15 13:25 | Outpatient (AMB) | payer MEDICARE, SELFPAY ==
[2023-01-15 13:26] VITALS: BP 144/70; PULSE 86; O2SAT 100; BMI 22.6
--- NOTE | 2023-01-15 13:26 | MHC.PC.OV ---
Vital Signs 01/15/23 13:26 Height 6 ft Weight 167 lb BMI 22.6 BP 144/70 H Pulse 86 Pulse Source Pulse Oximeter Pulse Oximetry (%) 100 Oxygen Delivery Method Room Air Intake Visit Reasons: HTN, cholesterol, S/p TAVR Allergies No Known Allergies Allergy (Verified 01/15/23 13:26) Tobacco use date assessed: 07/17/22 Fall risk assessment: No Falls in past year Last assessed Fall Risk: 01/15/23 Dental Screening Dental Screen Date: 01/15/23 Did you have a dental visit in the last 12 months?: Yes Did you have a dental problem in the last 6 months where you did not have access to dental care?: No Was dental information given to patient?: Patient has dentist HPI HTN, cholesterol, S/p TAVR HPI Details 87-year-old male with atrial fibrillation paroxysmal , severe aortic stenosis with status post TAVR August 2020 BPH osteoporosis coronary artery disease hypercholesterolemia coming in for follow-up. Last bone density was December 2021. Patient was seen in the Urgent Center in January 11 for cellulitis of the left wrist question of insect bite. October 2022 you was seen in the ER for leg swelling incidental finding of her right femoral artery pseudoaneurysm and was advised to see the vascular surgeon.. Patient was last seen in July 20. 1 week ago noted swelling L hand seen Urgent center 01/11/2023 placed on antibiotic and states is better and confirms better [facility] Medical History (Updated 01/15/23 @ 13:33 by Esteban Salgado MD) BPH (benign prostatic hyperplasia) Degenerative disc disease Exposure to COVID-19 virus Femoral artery pseudo-aneurysm, left Insomnia Left carotid stenosis Osteoporosis Pulmonary nodule Severe aortic stenosis Surgical History H/O right inguinal hernia repair History of appendectomy History of tonsillectomy and adenoidectomy S/P TAVR (transcatheter aortic valve replacement) Trochanteric fracture of right femur Family History (Updated 01/15/23 @ 13:27 by Ml Riojas CMA) Father No problems noted. Mother No problems noted. Sister In good health Social History Housing: House Alcohol intake: current Alcohol intake frequency: holidays/special occasions only Patient Tobacco Use Status: Never used Tobacco e-Cigarette/Vaping Use: Never Used Second Hand Smoke Exposure: No Current occupational status: retired Cognitive needs: No Hearing needs: No Vision needs: No Questionnaire PHQ-9 Over the last 2 weeks, how often have you been bothered by any of the following problems? 1. Little interest or pleasure in doing things: not at all 2. Feeling down, depressed, or hopeless: not at all 3. Trouble falling or staying asleep, or sleeping too much: not at all 4. Feeling tired or having little energy: not at all 5. Poor appetite or overeating: not at all 6. Feeling bad about yourself - or that you are a failure or have let yourself or your family down: not at all 7. Trouble concentrating on things, such as reading the newspaper or watching television: not at all 8. Moving or speaking so slowly that other people could have noticed. Or the opposite - being so fidgety or restless that you have been moving around a lot more than usual: not at all 9. Thoughts that you would be better off or of hurting yourself in some way: not at all Total score: 0 Depression Screening Interpretation: Negative Source: Developed by Drs. Vimal Jaquez, Mckay Hudson and colleagues, with an educational destiny from [employer]. Thrive Questionnaire Date Thrive assessed: 07/17/22 AUDIT C Alcohol Use Questionnaire (AUDIT-C) 1. How often do you have a drink containing alcohol?: Monthly or less 2. How many drinks containing alcohol do you have on a typical day when you are drinking?: 1 or 2 3. How often do you have six or more drinks on one occasion?: Never Total Score: 1 TAYE-7 AMB Questionnaire TAYE-7 Date TAYE - 7 assessed: 07/17/22 Source: Developed by Drs. Vimal Jaquez, Mckay Hudson and colleagues, with an educational destiny from [employer]. Physical exam (Primary Care) Vital Signs: Oxygen Delivery Method Room Air 01/15/23 13:26 Next steps: L hand swelling Tobacco/Smoking Status: Tobacco use Status Tobacco use date assessed 07/17/22 07/17/22 13:31 Patient Tobacco Use Status Never used Tobacco 01/11/23 10:48 Tobacco use type 07/03/21 14:28 e-Cigarette/Vaping Use Never Used 07/17/22 13:31 Depression Screening Interpretation: Negative Thrive Assessment: Date of Thrive Assessment Date Thrive assessed 07/17/22 07/17/22 13:31 Const General: alert; No acute distress Eyes Conjunctivae: conjunctivae normal Resp Auscultation: clear to auscultation bilaterally Cardio Rate: regular rate Rhythm: regular rhythm GI Inspection: Yes normal to inspection Extrem General: Yes normal to inspection and No edema Assessment and Plan Assessment & Plan (1) Coronary artery disease: Code(s): I25.10 - Atherosclerotic heart disease of [place] coronary artery without angina pectoris Qualifiers: Coronary Disease-Associated Artery/Lesion type: [place] artery [place] vs. transplanted heart: [place] heart Associated angina: without angina Qualified Code(s): I25.10 - Atherosclerotic heart disease of [place] coronary artery without angina pectoris Plan: Control the cholesterol, weight, blood pressure (2) S/P TAVR (transcatheter aortic valve replacement): Comment: 09/20/[address] Roberson balloon aortic valvuloplasty Code(s): Z95.2 - Presence of prosthetic heart valve Plan: Continue to follow-up with cardiology (3) Osteoporosis: Comment: July 2018, December 2021 Code(s): M81.0 - Age-related osteoporosis without current pathological fracture Qualifiers: Osteoporosis type: age-related Presence of current pathological fracture: with current pathological fracture Encounter type: subsequent encounter Fracture healing: with routine healing Qualified Code(s): M80.00XD - Age-related osteoporosis with current pathological fracture, unspecified site, subsequent encounter for fracture with routine healing Plan: Patient is on alendronate repeat bone density in 2023 (4) Cellulitis of left wrist: Comment: 01/11/2023 Code(s): L03.114 - Cellulitis of left upper limb Plan: resolving with present med. confirms better right now (5) Pseudoaneurysm of right femoral artery: Code(s): I72.4 - Aneurysm of artery of lower extremity Plan: patient decline referral to vascular surgeon Orders: Orders Complete Blood Count Auto Diff 3 Months E78.00 - Pure hypercholesterolemia, unspecified Comprehensive Met. Panel 3 Months E78.00 - Pure hypercholesterolemia, unspecified Free T4 (Free Thyroxine) 3 Months E78.00 - Pure hypercholesterolemia, unspecified Thyroid Stimulating Hormone 3 Months E78.00 - Pure hypercholesterolemia, unspecified Vitamin B12 and Folate 3 Months E78.00 - Pure hypercholesterolemia, unspecified Lipid Panel 3 Months E78.00 - Pure hypercholesterolemia, unspecified Erythrocyte Sedimentation Rate 3 Months E78.00 - Pure hypercholesterolemia, unspecified C Reactive Protein 3 Months E78.00 - Pure hypercholesterolemia, unspecified B Type Natriuretic Peptide 3 Months E78.00 - Pure hypercholesterolemia, unspecified Coding Level of Care Code Est Pt Level 4 (94589) Diagnoses Coronary artery disease I25.10 Coronary Disease-Associated Artery/Lesion type: [place] artery [place] vs. transplanted heart: [place] heart Associated angina: without angina S/P TAVR (transcatheter aortic valve replacement) Z95.2 Osteoporosis M80.00XD Osteoporosis type: age-related Presence of current pathological fracture: with current pathological fracture Encounter type: subsequent encounter Fracture healing: with routine healing Cellulitis of left wrist L03.114 Pseudoaneurysm of right femoral artery I72.4
== END 2023-01-15 14:08 | disposition home or self-care (01) ==
PROVIDERS: Visit Provider Internal Medicine
DX: I25.10 Atherosclerotic heart disease of native coronary artery without angina pectoris (principal); Z95.2 Presence of prosthetic heart valve; I72.4 Aneurysm of artery of lower extremity; M80.00XD Age-related osteoporosis with current pathological fracture, unspecified site, subsequent encounter for fracture with routine healing; L03.114 Cellulitis of left upper limb
CPT/HCPCS: 99214

== ENCOUNTER 2023-04-02 08:45 | Outpatient (REF) | payer MEDICARE, SELFPAY ==
[2023-04-02 09:22] LABS: MANUAL DIFF FLAG NO
[2023-04-02 09:47] LABS: Basophils Absolute Auto 0.1 X10*3/uL (0.0-0.2); Basophils Percent Auto 1.5 % (0-2); Eosinophils Absolute Auto 0.2 X10*3/uL (0.0-0.4); Eosinophils Percent Auto 3.8 % (0-4); Hemoglobin 13.8 g/dl (14.0-18.0); Imm Gran Abs Auto 0.01 X10*3/uL (0.00-0.03); Imm Gran Pct Auto 0.2 % (0.0-0.4); Lymphocytes Absolute Auto 1.4 X10*3/uL (1.2-4.9); Lymphocytes Percent Auto 25.8 % (20-40); Mean Corpuscular HGB Conc 32.1 g/dl (31.0-36.0); Mean Corpuscular Hemoglobin 29.7 pg (27.0-33.0); Mean Corpuscular Volume 92.5 fL (80.0-98.0); Mean Platelet Volume 9.7 fL (9.4-12.4); Monocytes Absolute Auto 0.6 X10*3/uL (0.1-1.2); Monocytes Percent Auto 10.4 % (2-11); Neutrophils Absolute Auto 3.1 x10*3/uL (2.0-8.3); Neutrophils Percent Auto 58.3 % (45-73); Platelet Count 291 X10*3/uL (160-400); Red Blood Count 4.65 X10*6/uL (4.60-5.80); Red Cell Distribution Width 14.1 % (11.0-16.0); White Blood Count 5.3 X10*3/uL (4.8-10.8)
[2023-04-02 10:07] LABS: B Type Natriuretic Peptide 251 pg/mL (<100)
[2023-04-02 10:22] LABS: Erythrocyte Sedimentation Rate 16 MM/HR (0-15)
[2023-04-02 10:40] LABS: Alanine Aminotransferase 13 U/L (0-40); Albumin Level 3.9 g/dL (3.5-5.0); Alkaline Phosphatase 49 U/L (39-117); Anion Gap 13 (12-20); Aspartate Amino Transferase 23 U/L (5-37); Bilirubin Total 0.4 mg/dL (0.0-1.0); Blood Urea Nitrogen 20 mg/dL (9-16); C Reactive Protein 0.17 mg/dL (< or = 0.50); Calcium 9.2 mg/dL (8.4-10.2); Carbon Dioxide 26 mmol/L (22-29); Chloride 104 mmol/L (96-108); Cholesterol 121 mg/dL (<200); Estimated Glomerular Filt Rate > 60; Glucose Random 95 mg/dL (60-115); HDL Cholesterol 40 mg/dL (>40); LDL Cholesterol Calculated 71 mg/dL (<100); Potassium 4.5 mmol/L (3.3-5.1); Sodium 138 mmol/L (135-145); Total Protein 7.8 g/dL (6.5-8.0); Triglycerides 50 mg/dL (<150)
[2023-04-02 10:45] LABS: Free T4 (Free Thyroxine) 0.91 ng/dL (0.71-1.85)
[2023-04-02 10:51] LABS: Folate 15.8 ng/mL (> or = 4.0); Vitamin B12 1042 pg/mL (200-900)
== END 2023-04-02 08:46 | disposition home or self-care (01) ==
LOC: HO.LAB 08:45
PROVIDERS: PCP Internal Medicine; Visit Provider Internal Medicine
DX: E78.00 Pure hypercholesterolemia, unspecified (principal)
CPT/HCPCS: 36415; 80053; 80061; 82607; 82746; 83880; 84439; 84443; 85025; 85652; 86140

== ENCOUNTER 2023-05-03 11:19 | Outpatient (AMB) | payer MEDICARE, SELFPAY ==
[2023-05-03 12:00] VITALS: BP 150/88; PULSE 85; TEMP 36.4; O2SAT 96; BMI 23.0
--- NOTE | 2023-05-03 12:00 | MHC.OFFWIV ---
Intake Vital Signs 05/03/23 12:00 Height 6 ft Weight 76.884 kg BMI 23.0 BP 150/88 H Blood Pressure Location Rt brachial Position Sitting Pulse 85 Pulse Source Pulse Oximeter Temp 97.6 F Temp Source Temporal Artery Scan Pulse Oximetry (%) 96 Intake Visit Reasons: EP, right thumb laceration Intake Note: pt is here for c/o right thumb laceration due to a razor blade Patient Tobacco Use Status: Never used Tobacco Allergies No Known Allergies Allergy (Verified 05/03/23 12:01) Do you need a note to return to daycare/school/sports/work: Yes HPI HPI Comments History of Present Illness Details 1207 87-year-old male presents with laceration to right thumb, patient accidentally cut himself with a razor blade since 7 am. He is on Eliquis and asa . Denies numbness and tingling. Not having difficulty moving fingers. Physical exam 3 cm linear simple laceration on right thumb This is likely simple laceration. Unlikely fracture, dislocation, threat to White, neurovascular compromise. Will try to stop the bleeding repair. 3, 4-0 sutures placed and 4 cc of 1% lidocaine used to repair lac, simple interrupted sutures used. tollerated well, bleeding stopped. Topical bacitracin placed Educated patient on diagnosis and treatment plan, answered all question, patient verbalizes understanding. At this time patient will be discharged home, advised to return with new or worsening symptoms. Educated on worrisome signs and symptoms and when to return. At this time I feel comfortable discharge home. COUNTS INCLUDE 234 BEDS AT THE [facility] Medical History (Updated 01/15/23 @ 13:33 by Esteban Salgado MD) Femoral artery pseudo-aneurysm, left Exposure to COVID-19 virus Pulmonary nodule Degenerative disc disease Severe aortic stenosis Left carotid stenosis Insomnia BPH (benign prostatic hyperplasia) Osteoporosis Surgical History S/P TAVR (transcatheter aortic valve replacement) History of appendectomy History of tonsillectomy and adenoidectomy H/O right inguinal hernia repair Trochanteric fracture of right femur Family History (Updated 01/15/23 @ 13:27 by Ml Riojas CMA) Father No problems noted. Mother No problems noted. Sister In good health Social History (Reviewed 01/08/22 @ 12:19 by MARK Powers Housing: House Alcohol intake: current Alcohol intake frequency: holidays/special occasions only Patient Tobacco Use Status: Never used Tobacco e-Cigarette/Vaping Use: Never Used Second Hand Smoke Exposure: No Current occupational status: retired Cognitive needs: No Hearing needs: No Vision needs: No Review of Systems Const Details: Constitutional : No Fever, No Chills, Cardiovascular : No Chest Pain, No SOB Respiratory : No Dyspnea Gastrointestinal : No abdominal pain Musculoskeletal : No Joint Swelling Skin : No rash, positive skin laceration Neuro : No Weakness, No Numbness Psych : No SI/HI All systems reviewed & are unremarkable except as noted in HPI and below Physical Exam Vital Signs: vss Appearance: Alert.? Oriented X3.? No acute distress.? Head: Normocephalic, atraumatic, no step-offs or deformities Eyes: Pupils equal, round and reactive to light.? CVS: Pulses normal 2+ radial Respiratory: No respiratory distress.? Abdomen: Soft and nontender.? Skin: Skin warm and dry.? Normal skin color.? Normal skin turgor.?+ 3 cm linear simple laceration on right thumb Extremities: No lower extremity edema.? No calf ttp. 5/5 strength to bilateral upper and lower extremities Cap refil < 2 seconds b/l UE, 2+ radial pulses, no wrist drop, right thumb laceration noted Back: No midline tenderness, no C-spine tenderness, full range of motion, no CVA tenderness bilaterally Neuro: Oriented X 3.? No motor deficit.? No sensory deficit. CN 2-12 intact Assessment & Plan Assessment & Plan (1) Laceration of finger: Code(s): S61.219A - Laceration without foreign body of unspecified finger without damage to nail, initial encounter Plan Take your medications as prescribed. If you were prescribed antibiotics today, it is important that you take your medication to their entirety, do not skip any doses, do not finish them early. Follow-up with your primary care provider this week. Return to the emergency department with new or worsening symptoms. Such as fevers, chills, chest pain, shortness of breath, nausea, vomiting, dizziness, headache, vision changes, lethargy In case of emergency call 911 Coding Level of Care Code Est Pt Level 3 (96363) Diagnoses Laceration of finger S61.219A
== END 2023-05-03 12:37 | disposition home or self-care (01) ==
PROVIDERS: PCP Internal Medicine; Visit Provider Physician Assistant
DX: S61.011A Laceration without foreign body of right thumb without damage to nail, initial encounter (principal)
CPT/HCPCS: 12002; 99213

== ENCOUNTER 2023-05-04 13:15 | Outpatient (AMB) | payer MEDICARE, SELFPAY ==
[2023-05-04 13:18] VITALS: BMI 22.9
--- NOTE | 2023-05-04 13:18 | MHC.OFFWIV ---
Intake Vital Signs 05/04/23 13:18 Height 6 ft Weight 169 lb BMI 22.9 Intake Visit Reasons: EP Spliint right thumb Intake Note: pt is here for splint on right thumb states his thumb is still bleeding from stitches yesterday Patient Tobacco Use Status: Never used Tobacco Allergies No Known Allergies Allergy (Verified 05/08/23 09:33) Do you need a note to return to daycare/school/sports/work: Yes HPI EP Spliint right thumb HPI Details Patient is 87-year-old male who comes to the walk-in clinic complaining of irritation and scant bleeding that returned to the laceration on his right thumb when he stopped using the splint this morning. He requested office to re-splint him. He has complaint of current bleeding, fever or chills, significant discomfort, or other significant associated symptoms. He did come back to the office a few hours after being sutured yesterday for assistance with wound care at that time also. [facility] Medical History (Updated 05/08/23 @ 09:29 by Theresa Gonsalez, [facility]) Femoral artery pseudo-aneurysm, left Exposure to COVID-19 virus Pulmonary nodule Degenerative disc disease Severe aortic stenosis Left carotid stenosis Insomnia BPH (benign prostatic hyperplasia) Osteoporosis Surgical History S/P TAVR (transcatheter aortic valve replacement) History of appendectomy History of tonsillectomy and adenoidectomy H/O right inguinal hernia repair Trochanteric fracture of right femur Family History (Updated 01/15/23 @ 13:27 by Ml Riojas [facility]) Father No problems noted. Mother No problems noted. Sister In good health Social History Housing: House Alcohol intake: current Alcohol intake frequency: holidays/special occasions only Patient Tobacco Use Status: Never used Tobacco e-Cigarette/Vaping Use: Never Used Second Hand Smoke Exposure: No Current occupational status: retired Cognitive needs: No Hearing needs: No Vision needs: No Review of Systems Const All systems reviewed & are unremarkable except as noted in HPI and below Physical Exam Vital Signs: BMI result Body Mass Index 22.9 Skin Other: Laceration to the right thumb has sutures intact, no wound dehiscence. No bleeding or discharge, and no cellulitic features. Assessment & Plan Assessment & Plan (1) Thumb laceration: Code(s): S61.019A - Laceration without foreign body of unspecified thumb without damage to nail, initial encounter Qualifiers: Damage to nail status: without damage Encounter type: subsequent encounter Foreign body presence: without foreign body Laterality: right Qualified Code(s): S61.011D - Laceration without foreign body of right thumb without damage to nail, subsequent encounter Plan: Patient had come back into the office a 3rd time in a matter of a 1 and half day, for assistance in re-splinting his thumb. He states that when he stopped using the splint today, he had some mild re-bleeding. MA resplinted thumb. Patient knows to follow back up again if any further concerns Coding Level of Care Code Procedure Only Diagnoses Laceration of right thumb without foreign body without damage to nail, subsequent encounter S61.011D Damage to nail status: without damage Encounter type: subsequent encounter Foreign body presence: without foreign body Laterality: right
== END 2023-05-04 14:06 | disposition home or self-care (01) ==
LOC: HO.HMGWI 13:15
PROVIDERS: PCP Internal Medicine; Visit Provider Physician Assistant Medical
DX: S61.011D Laceration without foreign body of right thumb without damage to nail, subsequent encounter (principal)
CPT/HCPCS: 99024

== ENCOUNTER 2023-05-08 08:08 | Outpatient (AMB) | payer MEDICARE, SELFPAY ==
[2023-05-08 08:54] VITALS: BP 130/80; PULSE 86; TEMP 36.6; O2SAT 97; BMI 22.9
--- NOTE | 2023-05-08 08:54 | MHC.OFFWIV ---
Intake Vital Signs 05/08/23 08:54 Height 6 ft Weight 169 lb BMI 22.9 BP 130/80 Blood Pressure Location Rt brachial Position Sitting Pulse 86 Pulse Source Pulse Oximeter Temp 97.8 F Temp Source Temporal Artery Scan Pulse Oximetry (%) 97 Intake Visit Reasons: EST/stitch removal right thumb(lobby) Intake Note: pt is here for stitches removal Patient Tobacco Use Status: Never used Tobacco Allergies No Known Allergies Allergy (Verified 05/08/23 09:33) Medication List - Last [facility] acetaminophen (Tylenol Extra Strength) 1,000 mg PO Q6H PRN alendronate 70 mg PO QWEEK apixaban (Eliquis) 5 mg PO BID ascorbate calcium (vitamin C) 500 mg PO DAILY atorvastatin 10 mg PO DAILY multivitamin 1 tab PO DAILY terazosin 5 mg PO DAILY trazodone 150 mg PO BEDTIME Do you need a note to return to daycare/school/sports/work: Yes HPI HPI Comments History of Present Illness Details 87-year-old male here today Suture removal. Lack repair to left thumb on 05/03/2023 Three interrupted sutures placed. Having no complaints in regards to the current sutures. Denies fever chills redness drainage. [facility] Medical History (Updated 05/08/23 @ 09:29 by PANFILO Ocampo) Femoral artery pseudo-aneurysm, left Exposure to COVID-19 virus Pulmonary nodule Degenerative disc disease Severe aortic stenosis Left carotid stenosis Insomnia BPH (benign prostatic hyperplasia) Osteoporosis Surgical History S/P TAVR (transcatheter aortic valve replacement) History of appendectomy History of tonsillectomy and adenoidectomy H/O right inguinal hernia repair Trochanteric fracture of right femur Family History (Updated 01/15/23 @ 13:27 by Ml Riojas CMA) Father No problems noted. Mother No problems noted. Sister In good health Social History Housing: House Alcohol intake: current Alcohol intake frequency: holidays/special occasions only Patient Tobacco Use Status: Never used Tobacco e-Cigarette/Vaping Use: Never Used Second Hand Smoke Exposure: No Current occupational status: retired Cognitive needs: No Hearing needs: No Vision needs: No Review of Systems Const All systems reviewed & are unremarkable except as noted in HPI and below Physical Exam Vital Signs: Last Vital Signs Temp 97.8 F 05/08/23 08:54 Pulse 86 05/08/23 08:54 BP 130/80 05/08/23 08:54 Pulse Ox 97 05/08/23 08:54 BMI result Body Mass Index 22.9 Const Other: awake alert nad speaking in full sentences L thumb 3 interrupted sutures, edges well approximated, thumb ecchymotic generally speaking, + CMS. Sutures removed w/o incident. Pt tolerated well. Area was cleansed prior to removal and post removal. 3 steri strips applied. Assessment & Plan Assessment & Plan (1) Visit for suture removal: Code(s): Z48.02 - Encounter for removal of sutures Patient Instructions: advised to keep clean and dry. do not remove steri strips. they will fall off on their own. cont to use splint to avoid excessive bending of thumb given the nature of injury. monitor for signs of infections such as fever chills redness drainage. edu on reasons to seek addl care Coding Level of Care Code Est Pt Level 3 (16261) Diagnoses Visit for suture removal Z48.02
== END 2023-05-08 09:32 | disposition home or self-care (01) ==
PROVIDERS: PCP Internal Medicine; Visit Provider Nurse Practitioner Family
DX: Z48.02 Encounter for removal of sutures (principal)
CPT/HCPCS: 15853; 99213

== ENCOUNTER 2023-07-13 09:19 | Outpatient (AMB) | payer MEDICARE, SELFPAY ==
--- NOTE | 2023-07-13 11:23 | AM.OFFWIN_ITS ---
Intake Vital Signs 07/13/23 11:25 Height 6 ft Weight 174 lb BMI 23.6 BP 120/62 Blood Pressure Location Rt brachial Position Sitting Pulse 81 Pulse Source Pulse Oximeter Pulse Oximetry (%) 98 Oxygen Delivery Method Room Air Intake Visit Reasons: EP RT calf pain swelling weeping sore Intake Note: Patient here because last saturday, pain and swelling started and for about 2-3 days he couldnt walk and has improved but still very painful . Last night he noticed there was a sore on the back of his calf which was wet and leaking. Patient Tobacco Use Status: Never used Tobacco Allergies No Known Allergies Allergy (Verified 07/13/23 13:54) Do you need a note to return to daycare/school/sports/work: No HPI EP RT calf pain swelling weeping sore HPI Details Patient is an 88 year old male with a history of atrial fibrillation and is status post TAVR, who comes to the walk in clinic complaining of new onset pain and swelling to the right leg, most noticeably to the calf area. He denies any chest discomfort or cough or shortness of breath currently, however he reports a brief episode about a week ago where he had left chest wall discomfort upon wakening that lasted about 2 days and that he attributes to his sleeping on his side and not being able to shift his weight at night due to support pillows. He has a history of pedal edema (which was bilateral, but worse on the left side at that time) that he did not do follow up workup with specialist Dr. Vidal as advised for incidental finding of a right common femoral artery pseudoaneurysm from ED evaluation. His duplex ultrasound was negative for DVT at that time. He is already on Eliquis for his afib. He denies excessive salt intake or change in his physical exertion level- I walk every day . He has not been wearing compression socks, elevating his legs, or actively doing any measures to decrease the provocation of edema reoccurring as he states he didn't know he should have been. He does not report acute apparent trauma to the leg, or any other change in medication. He denies fever or chills, weakness, dizziness, malaise or myalgias, or other significant associated symptoms. Reviewed past medical history. [facility] Medical History (Updated 05/08/23 @ 09:29 by Theresa Gonsalez, ADULT AND PEDIATRIC NEUROLOGIST-BC) Femoral artery pseudo-aneurysm, left Exposure to COVID-19 virus Pulmonary nodule Degenerative disc disease Severe aortic stenosis Left carotid stenosis Insomnia BPH (benign prostatic hyperplasia) Osteoporosis Surgical History S/P TAVR (transcatheter aortic valve replacement) History of appendectomy History of tonsillectomy and adenoidectomy H/O right inguinal hernia repair Trochanteric fracture of right femur Family History (Updated 01/15/23 @ 13:27 by Ml Riojas [facility]) Father No problems noted. Mother No problems noted. Sister In good health Social History Housing: House Alcohol intake: current Alcohol intake frequency: holidays/special occasions only Patient Tobacco Use Status: Never used Tobacco e-Cigarette/Vaping Use: Never Used Second Hand Smoke Exposure: No Advance Directives: No Advance Directives Information Provided: No Current occupational status: retired Cognitive needs: No Hearing needs: No Vision needs: No Review of Systems Const All systems reviewed & are unremarkable except as noted in HPI and below Physical Exam Vital Signs: Last Vital Signs Pulse 81 07/13/23 11:25 BP 120/62 07/13/23 11:25 Pulse Ox 98 07/13/23 11:25 Oxygen Delivery Method Room Air 07/13/23 11:25 BMI result Body Mass Index 23.6 Const General: cooperative, healthy appearing, comfortable, no acute distress, alert, awake, Physically active and well groomed; No anxious, diaphoretic, ill appearing, intoxicated appearing, poor hygiene or tired appearing Nutritional Appearance: average body habitus Orientation/consciousness: oriented to person Chest Chest palpation & inspection: normal palpation of entire chest wall Resp Effort & Inspection: normal respiratory effort, able to speak in complete sentences, no audible wheezes, no cough, no grunting, not labored, no nasal flaring, no retractions and symmetric chest movement Auscultation: clear to auscultation bilaterally, no crackles, no rales, no rhonchi, no wheezes, lung sounds not diminished and No rub present Cardio Rate: regular rate Skin Other: Right LE with 4+ pitting edema from just distal to the knee down to the foot. There is ecchymosis to the medial aspect of the foot/ankle with no appreciable tenderness. some weeping to a small lesion mid gunderson that looks like a small approx 0.25 cm skin tear. Good color, warm and dry otherwise Neuro General: oriented to person Extrem Other: Pitting edema to the right leg as described, but otherwise full range of motion and strength seems good to the right leg. Neurovscularly intact distally. Psych Appearance: grossly normal Mental Status: mental status grossly normal Speech and movement: Normal speech and movement present Affect: normal affect Attitude: cooperative Thought process: Normal thought process present Insight: Good insight present (Psych) Judgement: Good judgement present (Psych) Assessment & Plan Assessment & Plan (1) Edema leg: Code(s): R60.0 - Localized edema Plan: Patient is an 88-year-old male comes to the walk-in clinic complaining of acute onset of right leg swelling and pain about a week ago. He states that it came on suddenly with no apparent provocation, and he denies acute trauma, heavy salt intake or change in physical exertion. He has a history of atrial fibrillation (on Eliquis) and is status post TAVR. He also has a right common femoral artery pseudoaneurysm that was found with prior edema but he did not follow up with re- evaluation. He is stable on exam but has pitting edema from the foot to just under his knee of his right leg, with tenderness most notably to the calf, although no palpable cord, erythema or warmth appreciated. He denies any chest discomfort or cough or shortness of breath, weakness, cough or other significant associated symptoms currently. I advised that he go to the emergency department for evaluation, including possible ultrasound to rule out DVT. He was amenable to this and expect was called in to the [facility] in minor care. Coding Level of Care Code Est Pt Level 4 (06844) Diagnoses Edema leg R60.0
[2023-07-13 11:25] VITALS: BP 120/62; PULSE 81; O2SAT 98; BMI 23.6
== END 2023-07-13 12:21 | disposition home or self-care (01) ==
PROVIDERS: PCP Internal Medicine; Visit Provider Physician Assistant Medical
DX: R60.0 Localized edema (principal); I48.0 Paroxysmal atrial fibrillation; I72.4 Aneurysm of artery of lower extremity
CPT/HCPCS: 99214

== ENCOUNTER 2023-07-13 13:09 | Emergency (ER) | payer MEDICARE, SELFPAY ==
--- NOTE | ~2023-07-13 | US_ITS ---
EXAMINATION: US VENOUS ULTRASOUND WITH DOPPLER LOWER EXTREMITY, RIGHT CLINICAL INFORMATION: Lower extremity swelling COMPARISON: 11/07/2022 TECHNIQUE: Ultrasound of the deep veins is performed from the hip to the calf with compression sonography and color and pulse Doppler assessment. Spectral analysis with color-flow imaging is performed. FINDINGS: There is normal venous compression and respiratory variation and augmented flow. The visualized common femoral vein, superficial femoral vein, profunda femoral vein, popliteal vein, and the trifurcation region shows no evidence of deep venous thrombosis. There is no significant popliteal fossa cyst. There is stable 4.1 x 1.9 x 2.6 cm pseudoaneurysm in the right common femoral artery with neck measuring 0.6 cm. The aneurysm is partially clotted If the patient's symptoms persist, followup ultrasound in 5 days 7 days might be of value to exclude proximal propagation from a non-visualized calf vein. US/US venous duplex LE RT IMPRESSION: No DVT demonstrated in the right lower extremity. 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
[2023-07-13 13:54] VITALS: BP 144/70; PULSE 107; RESP 18; TEMP 36.7; O2SAT 95; BMI 23.1
--- NOTE | 2023-07-13 13:55 | ED_ITS ---
HPI - General Adult General Chief complaint: Extremity Injury, Lower Stated complaint: R leg swelling sent by [facility] Related Data Home Medications Medication Instructions Recorded Confirmed acetaminophen 500 mg tablet 1,000 mg PO Q6H PRN 09/01/20 05/08/23 (Tylenol Extra Strength) ascorbate calcium (vitamin C) 500 500 mg PO DAILY 09/01/20 05/08/23 mg tablet multivitamin 1 tab PO DAILY 09/01/20 05/08/23 apixaban 5 mg tablet (Eliquis) 5 mg PO BID 10/03/20 05/08/23 atorvastatin 10 mg tablet 10 mg PO DAILY 01/11/23 05/08/23 Previous Rx's Medication Instructions Recorded terazosin 5 mg capsule 5 mg PO DAILY #90 caps 10/01/22 trazodone 150 mg tablet 150 mg PO BEDTIME #90 tabs 10/01/22 alendronate 70 mg tablet 70 mg PO QWEEK #12 caps 01/04/23 Allergies Allergy/AdvReac Type Severity Reaction Status Date / Time No Known Allergies Allergy Verified 07/13/23 13:54 [facility] Past Medical History Onset Date is defined in the Problem List Problems that require an onset date and time if occurred within 24 hrs of arrival to the ED Aortic Dissection and Rupture; Neurologic impairment; Cardiopulmonary Arrest; Endotracheal Intubation; Insertion or Replacement of Mechanical Circulatory Assist Device Medical History (Updated 07/16/23 @ 10:01 by JHONNY Rich) Femoral artery pseudo-aneurysm, left Exposure to COVID-19 virus Pulmonary nodule Degenerative disc disease Severe aortic stenosis Left carotid stenosis Insomnia BPH (benign prostatic hyperplasia) Osteoporosis Surgical History S/P TAVR (transcatheter aortic valve replacement) History of appendectomy History of tonsillectomy and adenoidectomy H/O right inguinal hernia repair Trochanteric fracture of right femur Family History Family History (Updated 01/15/23 @ 13:27 by Ml Riojas CMA) Father No problems noted. Mother No problems noted. Sister In good health Social History Social History Housing: House Alcohol intake: current Alcohol intake frequency: holidays/special occasions only Patient Tobacco Use Status: Never used Tobacco e-Cigarette/Vaping Use: Never Used Second Hand Smoke Exposure: No Advance Directives: No Advance Directives Information Provided: No Current occupational status: retired Cognitive needs: No Hearing needs: No Vision needs: No Physical Exam ED Vital Signs: Vital Signs - 24 hr 07/13/23 13:54 Temperature 98.1 F Pulse Rate 107 H Respiratory Rate 18 Blood Pressure 144/70 H Pulse Oximetry 95 Oxygen Delivery Method Room Air BMI result Body Mass Index 23.1 Course Course Course Narrative: This is an RME: Additional HPI, ROS, PE not included below will be deferred to primary provider. This is a 88 y/o M, with a hx of a fib with TAVR on eliquis (compliant), presenting to the ER with complaints of R LE swelling. Patient reports that 1 week ago he noticed increased swelling, pain, tightness in his right calf. Tenderness palpation along the right calf with pitting edema noted bilaterally, right greater than left. He has no chest pain or shortness of breath. Plan: Labs, ultrasound, further evaluation needed Reevaluation(s) Reevaluation #1: Patient eloped prior to completing treatment Medical Decision Making Lab Data 07/13/23 15:24 07/13/23 15:24 Labs: Lab Results 07/13/23 Range/Units 15:24 WBC 6.3 (4.8-10.8) X10*3/uL RBC 4.40 L (4.60-5.80) X10*6/uL Hgb 13.2 L (14.0-18.0) g/dl Hct 40.5 L (42.0-52.0) % MCV 92.0 (80.0-98.0) fL MCH 30.0 (27.0-33.0) pg MCHC 32.6 (31.0-36.0) g/dl RDW 14.1 (11.0-16.0) % Plt Count 207 D (160-400) X10*3/uL MPV 9.8 (9.4-12.4) fL Immature Gran % (Auto) 0.2 (0.0-0.4) % Neut % (Auto) 73.7 H (45-73) % Lymph % (Auto) 15.6 L (20-40) % [place] % (Auto) 8.8 (2-11) % Eos % (Auto) 0.9 (0-4) % Baso % (Auto) 0.8 (0-2) % Lymph # (Auto) 1.0 L (1.2-4.9) X10*3/uL [place] # (Auto) 0.6 (0.1-1.2) X10*3/uL Eos # (Auto) 0.1 (0.0-0.4) X10*3/uL Baso # (Auto) 0.1 (0.0-0.2) X10*3/uL Abs Immat Gran (auto) 0.01 (0.00-0.03) X10*3/uL Absolute Neuts (auto) 4.7 (2.0-8.3) x10*3/uL Absolute Nucleated RBC 0.000 (0.0-0.012) X10*3/uL Nucleated RBC % (auto) 0.0 (0.0-0.2) /100WBC PT 22.2 H (11.1-13.3) SEC INR 1.8 H (0.9-1.1) APTT 40.6 H (26.0-36.4) SEC Sodium 141 (135-145) mmol/L Potassium 4.3 (3.3-5.1) mmol/L Chloride 104 (96-108) mmol/L Carbon Dioxide 28 (22-29) mmol/L Anion Gap 13 (12-20) BUN 17 H (9-16) mg/dL Creatinine 1.16 (0.5-1.4) mg/dL Estim Creat Clear Calc 49.9 Estimated GFR 60 Random Glucose 113 (60-115) mg/dL Calcium 9.4 (8.4-10.2) mg/dL Total Bilirubin 0.6 (0.0-1.0) mg/dL Direct Bilirubin 0.3 (0.0-0.5) mg/dL AST 27 (5-37) U/L ALT 18 (0-40) U/L Alkaline Phosphatase 67 (39-117) U/L B-Natriuretic Peptide 291 H (<100) pg/mL Total Protein 7.8 (6.5-8.0) g/dL Albumin 3.9 (3.5-5.0) g/dL Discharge Plan Discharge Clinical Impression: Leg pain, right Patient Disposition: Left W/O Completing Treatment Prescriptions: No Action terazosin 5 mg capsule 5 mg PO DAILY Qty: 90 3RF trazodone 150 mg tablet 150 mg PO BEDTIME Qty: 90 3RF alendronate 70 mg tablet 70 mg PO QWEEK Qty: 12 3RF Eliquis 5 mg tablet 5 mg PO BID multivitamin Tablet 1 tab PO DAILY acetaminophen [Tylenol Extra Strength] 500 mg tablet 1,000 mg PO Q6H PRN ascorbate calcium (vitamin C) 500 mg tablet 500 mg PO DAILY atorvastatin 10 mg tablet 10 mg PO DAILY Discharge Date/Time: 07/13/23 22:21
[2023-07-13 15:28] LABS: MANUAL DIFF FLAG NO
[2023-07-13 15:32] LABS: Basophils Absolute Auto 0.1 X10*3/uL (0.0-0.2); Basophils Percent Auto 0.8 % (0-2); Eosinophils Absolute Auto 0.1 X10*3/uL (0.0-0.4); Eosinophils Percent Auto 0.9 % (0-4); Hematocrit 40.5 % (42.0-52.0); Hemoglobin 13.2 g/dl (14.0-18.0); Imm Gran Abs Auto 0.01 X10*3/uL (0.00-0.03); Imm Gran Pct Auto 0.2 % (0.0-0.4); Lymphocytes Percent Auto 15.6 % (20-40); Mean Corpuscular HGB Conc 32.6 g/dl (31.0-36.0); Mean Platelet Volume 9.8 fL (9.4-12.4); Monocytes Absolute Auto 0.6 X10*3/uL (0.1-1.2); Monocytes Percent Auto 8.8 % (2-11); Neutrophils Absolute Auto 4.7 x10*3/uL (2.0-8.3); Neutrophils Percent Auto 73.7 % (45-73); Platelet Count 207 X10*3/uL (160-400); Red Cell Distribution Width 14.1 % (11.0-16.0); White Blood Count 6.3 X10*3/uL (4.8-10.8)
[2023-07-13 15:35] LABS: INTERNATIONAL NORM RATIO 1.8 (0.9-1.1); Prothrombin Time 22.2 SEC (11.1-13.3)
[2023-07-13 15:38] LABS: Partial Thromboplastin Time 40.6 SEC (26.0-36.4)
[2023-07-13 15:45] LABS: Alanine Aminotransferase 18 U/L (0-40); Albumin Level 3.9 g/dL (3.5-5.0); Alkaline Phosphatase 67 U/L (39-117); Anion Gap 13 (12-20); Aspartate Amino Transferase 27 U/L (5-37); Bilirubin Direct 0.3 mg/dL (0.0-0.5); Bilirubin Total 0.6 mg/dL (0.0-1.0); Blood Urea Nitrogen 17 mg/dL (9-16); Calcium 9.4 mg/dL (8.4-10.2); Carbon Dioxide 28 mmol/L (22-29); Chloride 104 mmol/L (96-108); Creatinine Clr Calc Pharmacy 49.9; Estimated Glomerular Filt Rate 60; Glucose Random 113 mg/dL (60-115); Potassium 4.3 mmol/L (3.3-5.1); Sodium 141 mmol/L (135-145); Total Protein 7.8 g/dL (6.5-8.0)
[2023-07-13 15:48] LABS: B Type Natriuretic Peptide 291 pg/mL (<100)
--- NOTE | 2023-07-13 22:21 | PC.NURSE ---
Pt not visualized in ED WR when called.
== END 2023-07-13 22:21 | disposition left against medical advice (07) ==
PROVIDERS: Physician Assistant Medical; Emergency Provider Emergency Medicine; PCP Internal Medicine
DX: M79.604 Pain in right leg (principal); R60.0 Localized edema
CPT/HCPCS: 36415; 80048; 80076; 83880; 85025; 85610; 85730; 93971; 99281; 99284

== ENCOUNTER 2023-07-17 15:29 | Outpatient (AMB) | payer MEDICARE, SELFPAY ==
[2023-07-17 15:23] VITALS: BMI 22.1
--- NOTE | 2023-07-17 15:23 | MHC.PC.OV ---
Vital Signs 07/17/23 15:23 Height 6 ft Weight 163 lb BMI 22.1 Intake Visit Reasons: Leg edema Allergies No Known Allergies Allergy (Verified 07/17/23 15:24) Medication List - Last Reconciled 07/17/23 by Esteban Salgado MD acetaminophen (Tylenol Extra Strength) 1,000 mg PO Q6H PRN alendronate 70 mg PO QWEEK apixaban (Eliquis) 5 mg PO BID ascorbate calcium (vitamin C) 500 mg PO DAILY atorvastatin 10 mg PO DAILY multivitamin 1 tab PO DAILY terazosin 5 mg PO DAILY trazodone 150 mg PO BEDTIME Tobacco use date assessed: 07/17/23 Fall risk assessment: No Falls in past year Last assessed Fall Risk: 07/17/23 Dental Screening Dental Screen Date: 07/17/23 Did you have a dental visit in the last 12 months?: Yes Did you have a dental problem in the last 6 months where you did not have access to dental care?: No Was dental information given to patient?: Patient has dentist HPI Leg edema HPI Details 88-year-old male with the history of coronary artery disease status post TAVR BPH carotid artery stenosis atrial fibrillation hypercholesterolemia coming in for an acute problem through Telehealth. Complains of leg swelling. Last time seen was in December 2022. July blood work showing some mild anemia at 13.2, normal renal function elevated blood sugar BNP at 291 LDL at 71. 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 Patient has gone to the Urgent Center and was advised to go to the ER right away for fear of blood clot. And so he has been in the ER ultrasound showing no blood clot but the persistence of the swelling is there. Patient does wear support stockings but concern about the discoloration on the leg specially with infection. [facility] Medical History (Updated 07/17/23 @ 16:11 by Esteban Salgado MD) Femoral artery pseudo-aneurysm, left Exposure to COVID-19 virus Pulmonary nodule Degenerative disc disease Severe aortic stenosis Left carotid stenosis Insomnia BPH (benign prostatic hyperplasia) Osteoporosis Surgical History S/P TAVR (transcatheter aortic valve replacement) History of appendectomy History of tonsillectomy and adenoidectomy H/O right inguinal hernia repair Trochanteric fracture of right femur Family History Father No problems noted. Mother No problems noted. Sister In good health Social History Housing: House Alcohol intake: current Alcohol intake frequency: holidays/special occasions only Patient Tobacco Use Status: Never used Tobacco e-Cigarette/Vaping Use: Never Used Second Hand Smoke Exposure: No Current occupational status: retired Cognitive needs: No Hearing needs: No Vision needs: No Questionnaire PHQ-9 Over the last 2 weeks, how often have you been bothered by any of the following problems? 1. Little interest or pleasure in doing things: not at all 2. Feeling down, depressed, or hopeless: not at all 3. Trouble falling or staying asleep, or sleeping too much: not at all 4. Feeling tired or having little energy: not at all 5. Poor appetite or overeating: not at all 6. Feeling bad about yourself - or that you are a failure or have let yourself or your family down: not at all 7. Trouble concentrating on things, such as reading the newspaper or watching television: not at all 8. Moving or speaking so slowly that other people could have noticed. Or the opposite - being so fidgety or restless that you have been moving around a lot more than usual: not at all 9. Thoughts that you would be better off or of hurting yourself in some way: not at all Total score: 0 Depression Screening Interpretation: Negative Depression Screening Done: Yes Source: Developed by Drs. Vimal Jaquez, Kat Tirado, Mckay Falk and colleagues, with an educational destiny from [employer]. Thrive Questionnaire Date Thrive assessed: 07/17/23 I am a: Patient What is your living situation today?: I have a steady place to live Within the past 12 months, did the food you bought not last and you didn't have the money to get more?: Never true Within the past 12 months, did you worry whether your food would run out before you got money to buy more?: Never true Do you have trouble paying for medicines?: No Do you have trouble getting transportation to medical appointments?: No Do you have trouble paying your heating and electricity bill?: No Do you have trouble taking care of your child, family member or friend?: No Do you have trouble with day-to-day activities such as bathing, preparing meals, shopping, managing finances, etc.?: No Are you currently unemployed and looking for a job?: No Are you interested in more education?: No Please select the resources that you would like help with: None AUDIT C Alcohol Use Questionnaire (AUDIT-C) 1. How often do you have a drink containing alcohol?: Monthly or less 2. How many drinks containing alcohol do you have on a typical day when you are drinking?: 1 or 2 3. How often do you have six or more drinks on one occasion?: Never Total Score: 1 TAYE-7 AMB Questionnaire TAYE-7 Date TAYE - 7 assessed: 07/17/23 Feeling nervous, anxious, or on edge: 0 = Not at all Not being able to stop or control worryin = Not at all Worrying too much about different things: 0 = Not at all Trouble relaxin = Not at all Being so restless that it is hard to sit still: 0 = Not at all Becoming easily annoyed or irritable: 0 = Not at all Feeling afraid as if something awful might happen: 0 = Not at all Total TAYE-7 score (0-4 normal; 5-9 mild; 10-14 moderate; 15-21 severe): 0 Source: Developed by Drs. Vimal Jaquez, Kat Tirado, Mckay Falk and colleagues, with an educational destiny from [employer]. Physical exam (Primary Care) BMI result Body Mass Index 22.1 Tobacco/Smoking Status: Tobacco use Status Tobacco use date assessed 07/17/23 07/17/23 15:25 Patient Tobacco Use Status Never used Tobacco 07/17/23 15:25 Tobacco use type 07/03/21 14:28 e-Cigarette/Vaping Use Never Used 07/17/23 15:25 PHQ-9: PHQ-9 Score PHQ-9: Total score 0 07/17/23 16:02 Depression Screening Interpretation: Negative Thrive Assessment: Date of Thrive Assessment Date Thrive assessed 07/17/23 07/17/23 15:25 Telehealth Telehealth Location of provider rendering services: practice address Location of patient: address on file Patient Identification confirmed using: Name, : Yes Telehealth method: voice only Patient verbally consented to treatment: Yes Patient verbally consented to billing insurance company: Yes Patient informed of any privacy concerns related to visit: Yes Assessment and Plan Assessment & Plan (1) S/P TAVR (transcatheter aortic valve replacement): Comment: 09/20/[address] Roberson balloon aortic valvuloplasty Code(s): Z95.2 - Presence of prosthetic heart valve Plan: Continue to be monitored by Cardiology. Patient was advised to follow-up with us also (2) Osteoporosis: Comment: July 2018, December 2021 Code(s): M81.0 - Age-related osteoporosis without current pathological fracture Qualifiers: Osteoporosis type: age-related Presence of current pathological fracture: with current pathological fracture Encounter type: subsequent encounter Fracture healing: with routine healing Qualified Code(s): M80.00XD - Age-related osteoporosis with current pathological fracture, unspecified site, subsequent encounter for fracture with routine healing Plan: Up-to-date with bone density on alendronate (3) Paroxysmal atrial fibrillation: Code(s): I48.0 - Paroxysmal atrial fibrillation Plan: Continue with anticoagulation discussed my concerns about congestive heart failure. (4) Right leg swelling: Code(s): M79.89 - Other specified soft tissue disorders Plan: Patient would like this treated as an infection for now. Did offer diuretic since the BNP was elevated. Will continue to monitor Medications: New amoxicillin-pot clavulanate 875-125 mg 1 tab PO BID 14 tabs 0RF M79.89 - Other specified soft tissue disorders Coding Level of Care Code Tele Est Pt Level 4 (62846) Diagnoses S/P TAVR (transcatheter aortic valve replacement) Z95.2 Age-related osteoporosis with current pathological fracture with routine healing, subsequent encounter M80.00XD Osteoporosis type: age-related Presence of current pathological fracture: with current pathological fracture Encounter type: subsequent encounter Fracture healing: with routine healing Paroxysmal atrial fibrillation I48.0 Right leg swelling M79.89
== END 2023-07-17 17:06 | disposition home or self-care (01) ==
LOC: HO.HMGH 15:29
PROVIDERS: PCP Internal Medicine; Visit Provider Internal Medicine
DX: M79.89 Other specified soft tissue disorders (principal); Z95.2 Presence of prosthetic heart valve; M80.00XD Age-related osteoporosis with current pathological fracture, unspecified site, subsequent encounter for fracture with routine healing; I48.0 Paroxysmal atrial fibrillation
CPT/HCPCS: 99442

== ENCOUNTER 2023-07-23 13:24 | Outpatient (AMB) | payer MEDICARE, SELFPAY ==
[2023-07-23 13:26] VITALS: BMI 22.5
--- NOTE | 2023-07-23 13:26 | A.OFFPC_ITS ---
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 Allergies No Known Allergies Allergy (Verified 07/23/23 13:28) Medication List - Last Reconciled 07/23/23 by Esteban Salgado MD acetaminophen (Tylenol Extra Strength) 1,000 mg PO Q6H PRN alendronate 70 mg PO QWEEK amoxicillin-pot clavulanate 875-125 mg 1 tab PO BID apixaban (Eliquis) 5 mg PO BID ascorbate calcium (vitamin C) 500 mg PO DAILY atorvastatin 10 mg PO DAILY cholecalciferol (vitamin D3) 50 mcg PO DAILY 90 days furosemide 20 mg PO DAILY multivitamin 1 tab PO DAILY terazosin 5 mg PO DAILY trazodone 150 mg PO BEDTIME Tobacco use date assessed: 07/23/23 Fall risk assessment: No Falls in past year Last assessed Fall Risk: 07/23/23 HPI tavr,paf HPI Details 88-year-old male with a history of sever e aortic stenosis status post TAVR coronary artery disease hypercholesterolemia coming in for follow-up. Patient had a Telehealth in July 2023. Dr. Conway new cardiology- schedule to see October 202305/2023 no swelling on legs has also a 2 x 1 cm wound on the anterior leg [facility] Medical History (Updated 07/23/23 @ 13:53 by Esteban Salgado MD) Femoral artery pseudo-aneurysm, left Exposure to COVID-19 virus Pulmonary nodule Degenerative disc disease Severe aortic stenosis Left carotid stenosis Insomnia BPH (benign prostatic hyperplasia) Osteoporosis Surgical History S/P TAVR (transcatheter aortic valve replacement) History of appendectomy History of tonsillectomy and adenoidectomy H/O right inguinal hernia repair Trochanteric fracture of right femur Family History Father No problems noted. Mother No problems noted. Sister In good health Social History Housing: House Alcohol intake: current Alcohol intake frequency: holidays/special occasions only Patient Tobacco Use Status: Never used Tobacco e-Cigarette/Vaping Use: Never Used Second Hand Smoke Exposure: No Current occupational status: retired Cognitive needs: No Hearing needs: No Vision needs: No Questionnaire Thrive Questionnaire Date Thrive assessed: 07/17/23 AUDIT C Alcohol Use Questionnaire (AUDIT-C) 1. How often do you have a drink containing alcohol?: Monthly or less 2. How many drinks containing alcohol do you have on a typical day when you are drinking?: 1 or 2 3. How often do you have six or more drinks on one occasion?: Never Total Score: 1 TAYE-7 AMB Questionnaire TAYE-7 Date TAYE - 7 assessed: 07/17/23 Source: Developed by Drs. Vimal Jaquez, Kat Tirado, Mckay Falk and colleagues, with an educational destiny from [employer]. Physical exam (Primary Care) Vital Signs: Oxygen Delivery Method Room Air 07/23/23 13:26 BMI result Body Mass Index 22.5 Tobacco/Smoking Status: Tobacco use Status Tobacco use date assessed 07/23/23 07/23/23 13:29 Patient Tobacco Use Status Never used Tobacco 07/23/23 13:29 Tobacco use type 07/03/21 14:28 e-Cigarette/Vaping Use Never Used 07/23/23 13:29 Thrive Assessment: Date of Thrive Assessment Date Thrive assessed 07/17/23 07/23/23 13:29 Const General: alert; No acute distress Eyes Conjunctivae: conjunctivae normal Resp Auscultation: clear to auscultation bilaterally Cardio Rate: regular rate Rhythm: regular rhythm GI Inspection: Yes normal to inspection Extrem General: Yes normal to inspection and No edema Assessment and Plan Assessment & Plan (1) Severe aortic stenosis: Comment: Echocardiogram 2015 mild , May 2018 severe EF 60-65%, May 2019 EF 60% severe , TAVR September 20/2021 Dr. Roberson Code(s): I35.0 - Nonrheumatic aortic (valve) stenosis Plan: 2020 status post TAVR (2) S/P TAVR (transcatheter aortic valve replacement): Comment: 09/20/[address] Roberson balloon aortic valvuloplasty Code(s): Z95.2 - Presence of prosthetic heart valve Plan: Continue to follow-up with cardiology (3) Hypercholesterolemia: Comment: decline medical treatment 12/2021 Code(s): E78.00 - Pure hypercholesterolemia, unspecified Plan: Avoid fried foods, chicken skin, eggs, butter margarine, pastries and meat. Be it pork or beef they have a lot of cholesterol LDL goal of less than 70 and triglyceride of less than 150 on atorvastatin 10 mg once a day (4) Osteoporosis: Comment: July 2018, December 2021 Code(s): M81.0 - Age-related osteoporosis without current pathological fracture Qualifiers: Osteoporosis type: age-related Presence of current pathological fracture: with current pathological fracture Encounter type: subsequent encounter Fracture healing: with routine healing Qualified Code(s): M80.00XD - Age-related osteoporosis with current pathological fracture, unspecified site, subsequent encounter for fracture with routine healing Plan: December 2023 next bone density presently on alendronate discussed about calcium and vitamin-D (5) BPH (benign prostatic hyperplasia): Code(s): N40.0 - Benign prostatic hyperplasia without lower urinary tract symptoms Qualifiers: Lower urinary tract symptom presence: symptoms present Lower urinary tract symptom detail: urinary frequency Qualified Code(s): N40.1 - Benign prostatic hyperplasia with lower urinary tract symptoms; R35.0 - Frequency of micturition Plan: Continue with terazosin (6) Coronary artery disease: Code(s): I25.10 - Atherosclerotic heart disease of [place] coronary artery without angina pectoris Qualifiers: Coronary Disease-Associated Artery/Lesion type: [place] artery [place] vs. transplanted heart: [place] heart Associated angina: without angina Qualified Code(s): I25.10 - Atherosclerotic heart disease of [place] coronary artery without angina pectoris Plan: Control the cholesterol, weight, blood pressure (7) Paroxysmal atrial fibrillation: Code(s): I48.0 - Paroxysmal atrial fibrillation Plan: Continue with anticoagulation (8) Abrasion, leg w/o infection: Code(s): S80.819A - Abrasion, unspecified lower leg, initial encounter Plan: presently bandage placed Orders: Orders CA echo transthoracic complete Today I48.0 - Paroxysmal atrial fibrillation Medications: New furosemide 20 mg PO DAILY 30 tabs 0RF I48.0 - Paroxysmal atrial fibrillation cholecalciferol (vitamin D3) 50 mcg PO DAILY 90 days 90 caps 3RF E55.9 - Vitamin D deficiency, unspecified Coding Level of Care Code Est Pt Level 4 (85825) Diagnoses Severe aortic stenosis I35.0 S/P TAVR (transcatheter aortic valve replacement) Z95.2 Hypercholesterolemia E78.00 Age-related osteoporosis with current pathological fracture with routine healing, subsequent encounter M80.00XD Osteoporosis type: age-related Presence of current pathological fracture: with current pathological fracture Encounter type: subsequent encounter Fracture healing: with routine healing Benign prostatic hyperplasia with urinary frequency N40.1; R35.0 Lower urinary tract symptom presence: symptoms present Lower urinary tract symptom detail: urinary frequency Coronary artery disease involving [place] coronary artery of [place] heart without angina pectoris I25.10 Coronary Disease-Associated Artery/Lesion type: [place] artery [place] vs. transplanted heart: [place] heart Associated angina: without angina Paroxysmal atrial fibrillation I48.0 Abrasion, leg w/o infection S80.819I
== END 2023-07-23 14:16 | disposition home or self-care (01) ==
PROVIDERS: PCP Internal Medicine; Visit Provider Internal Medicine
DX: I48.0 Paroxysmal atrial fibrillation (principal); I35.0 Nonrheumatic aortic (valve) stenosis; Z95.2 Presence of prosthetic heart valve; E78.00 Pure hypercholesterolemia, unspecified; M80.00XD Age-related osteoporosis with current pathological fracture, unspecified site, subsequent encounter for fracture with routine healing; N40.1 Benign prostatic hyperplasia with lower urinary tract symptoms; R35.0 Frequency of micturition; I25.10 Atherosclerotic heart disease of native coronary artery without angina pectoris; S80.819A Abrasion, unspecified lower leg, initial encounter
CPT/HCPCS: 99214

== ENCOUNTER 2023-08-27 13:43 | Outpatient (AMB) | payer MEDICARE, SELFPAY ==
[2023-08-27 13:44] VITALS: BP 150/70; PULSE 88; O2SAT 97; BMI 22.1
--- NOTE | 2023-08-27 13:44 | A.OFFPC_ITS ---
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 Last seen in July 2023. noted BP elevated, swelling is better [facility] Medical History (Updated 08/12/23 @ 08:46 by Esteban Salgado MD) Femoral artery pseudo-aneurysm, left Exposure to COVID-19 virus Pulmonary nodule Degenerative disc disease Severe aortic stenosis Left carotid stenosis Insomnia BPH (benign prostatic hyperplasia) Osteoporosis Surgical History S/P TAVR (transcatheter aortic valve replacement) History of appendectomy History of tonsillectomy and adenoidectomy H/O right inguinal hernia repair Trochanteric fracture of right femur Family History Father No problems noted. Mother No problems noted. Sister In good health Social History (Reviewed 01/08/22 @ 12:19 by Betty Sorenson [facility] [place] Housing: House Alcohol intake: current Alcohol intake frequency: holidays/special occasions only Patient Tobacco Use Status: Never used Tobacco e-Cigarette/Vaping Use: Never Used Second Hand Smoke Exposure: No Current occupational status: retired Cognitive needs: No Hearing needs: No Vision needs: No Questionnaire Thrive Questionnaire Date Thrive assessed: 07/17/23 AUDIT C Alcohol Use Questionnaire (AUDIT-C) 1. How often do you have a drink containing alcohol?: Monthly or less 2. How many drinks containing alcohol do you have on a typical day when you are drinking?: 1 or 2 3. How often do you have six or more drinks on one occasion?: Never Total Score: 1 TAYE-7 AMB Questionnaire TAYE-7 Date TAYE - 7 assessed: 07/17/23 Source: Developed by Drs. Vimal Jaquez, Kat Tirado, Mckay Falk and colleagues, with an educational destiny from [employer]. Physical exam (Primary Care) Vital Signs: Last Vital Signs Pulse 88 08/27/23 13:44 Pulse Ox 97 08/27/23 13:44 Oxygen Delivery Method Room Air 08/27/23 13:44 BMI result Body Mass Index 22.1 Tobacco/Smoking Status: Tobacco use Status Tobacco use date assessed 08/27/23 08/27/23 13:45 Patient Tobacco Use Status Never used Tobacco 08/27/23 13:45 Tobacco use type 07/03/21 14:28 e-Cigarette/Vaping Use Never Used 08/27/23 13:45 Thrive Assessment: Date of Thrive Assessment Date Thrive assessed 07/17/23 08/27/23 13:45 Const General: alert; No acute distress Eyes Conjunctivae: conjunctivae normal Resp Auscultation: clear to auscultation bilaterally Cardio Rate: regular rate Rhythm: regular rhythm GI Inspection: Yes normal to inspection Extrem General: Yes normal to inspection and No edema Assessment and Plan Assessment & Plan (1) Severe aortic stenosis: Comment: Echocardiogram 2015 mild , May 2018 severe EF 60-65%, May 2019 EF 60% severe , TAVR September 20/2021 Dr. Roberson Code(s): I35.0 - Nonrheumatic aortic (valve) stenosis Plan: Status post TAVR August 2020 (2) S/P TAVR (transcatheter aortic valve replacement): Comment: 09/20/[address] Roberson balloon aortic valvuloplasty Code(s): Z95.2 - Presence of prosthetic heart valve Plan: Continue to follow-up with cardiology (3) Osteoporosis: Comment: July 2018December 2021 Code(s): M81.0 - Age-related osteoporosis without current pathological fracture Qualifiers: Osteoporosis type: age-related Presence of current pathological fracture: with current pathological fracture Encounter type: subsequent encounter Fracture healing: with routine healing Qualified Code(s): M80.00XD - Age-related osteoporosis with current pathological fracture, unspecified site, subsequent encounter for fracture with routine healing Plan: Bone density due in December 2023 on alendronate once a week (4) Paroxysmal atrial fibrillation: Code(s): I48.0 - Paroxysmal atrial fibrillation Plan: Continue with anticoagulation and twice a year of blood work (5) Hypercholesterolemia: Comment: decline medical treatment 12/2021 Code(s): E78.00 - Pure hypercholesterolemia, unspecified Plan: Avoid fried foods, chicken skin, eggs, butter margarine, pastries and meat. Be it pork or beef they have a lot of cholesterol presently on atorvastatin 10 mg once a day March 2023 last blood work LDL goal of less than 70 (6) Coronary artery disease: Code(s): I25.10 - Atherosclerotic heart disease of [place] coronary artery without angina pectoris Qualifiers: Coronary Disease-Associated Artery/Lesion type: [place] artery [place] vs. transplanted heart: [place] heart Associated angina: without angina Qualified Code(s): I25.10 - Atherosclerotic heart disease of [place] coronary artery without angina pectoris Plan: Control the cholesterol, weight, blood pressure, Orders: Orders Free T4 (Free Thyroxine) 6 Months E78.00 - Pure hypercholesterolemia, unspecified Thyroid Stimulating Hormone 6 Months E78.00 - Pure hypercholesterolemia, unspecified B Type Natriuretic Peptide Today I48.0 - Paroxysmal atrial fibrillation C Reactive Protein 6 Months I48.0 - Paroxysmal atrial fibrillation XR DEXA axial skeleton 5 Months M80.00XD - Age-related osteoporosis with current pathological fracture, unspecified site, subsequent encounter for fracture with routine healing, M81.0 - Age-related osteoporosis without current pathological fracture Vitamin D 25-OH Total 6 Months M80.00XD - Age-related osteoporosis with current pathological fracture, unspecified site, subsequent encounter for fracture with routine healing Complete Blood Count Auto Diff 6 Months E78.00 - Pure hypercholesterolemia, unspecified Comprehensive Met. Panel 6 Months E78.00 - Pure hypercholesterolemia, unspecified Lipid Panel 6 Months E78.00 - Pure hypercholesterolemia, unspecified Vitamin B12 and Folate 6 Months E78.00 - Pure hypercholesterolemia, unspecified Erythrocyte Sedimentation Rate 6 Months I48.0 - Paroxysmal atrial fibrillation D Dimer High Sensitivity 6 Months I48.0 - Paroxysmal atrial fibrillation Coding Level of Care Code Est Pt Level 4 (64795) Diagnoses Severe aortic stenosis I35.0 S/P TAVR (transcatheter aortic valve replacement) Z95.2 Age-related osteoporosis with current pathological fracture with routine healing, subsequent encounter M80.00XD Osteoporosis type: age-related Presence of current pathological fracture: with current pathological fracture Encounter type: subsequent encounter Fracture healing: with routine healing Paroxysmal atrial fibrillation I48.0 Hypercholesterolemia E78.00 Coronary artery disease involving [place] coronary artery of [place] heart without angina pectoris I25.10 Coronary Disease-Associated Artery/Lesion type: [place] artery [place] vs. transplanted heart: [place] heart Associated angina: without angina
== END 2023-08-27 14:43 | disposition home or self-care (01) ==
PROVIDERS: PCP Internal Medicine; Visit Provider Internal Medicine
DX: I35.0 Nonrheumatic aortic (valve) stenosis (principal); Z95.2 Presence of prosthetic heart valve; M80.00XD Age-related osteoporosis with current pathological fracture, unspecified site, subsequent encounter for fracture with routine healing; I48.0 Paroxysmal atrial fibrillation; E78.00 Pure hypercholesterolemia, unspecified; I25.10 Atherosclerotic heart disease of native coronary artery without angina pectoris
CPT/HCPCS: 99214

== ENCOUNTER 2023-10-24 07:27 | Outpatient (REF) | payer MEDICARE, SELFPAY ==
[2023-10-24 07:45] LABS: MANUAL DIFF FLAG NO
[2023-10-24 08:00] LABS: Basophils Absolute Auto 0.1 X10*3/uL (0.0-0.2); Basophils Percent Auto 1.8 % (0-2); Eosinophils Absolute Auto 0.3 X10*3/uL (0.0-0.4); Eosinophils Percent Auto 4.8 % (0-4); Hematocrit 45.2 % (42.0-52.0); Hemoglobin 14.5 g/dl (14.0-18.0); Imm Gran Abs Auto 0.01 X10*3/uL (0.00-0.03); Imm Gran Pct Auto 0.2 % (0.0-0.4); Lymphocytes Absolute Auto 1.5 X10*3/uL (1.2-4.9); Lymphocytes Percent Auto 27.9 % (20-40); Mean Corpuscular HGB Conc 32.1 g/dl (31.0-36.0); Mean Corpuscular Volume 93.4 fL (80.0-98.0); Monocytes Absolute Auto 0.5 X10*3/uL (0.1-1.2); Monocytes Percent Auto 9.2 % (2-11); Neutrophils Absolute Auto 3.1 x10*3/uL (2.0-8.3); Neutrophils Percent Auto 56.1 % (45-73); Platelet Count 191 X10*3/uL (160-400); Red Blood Count 4.84 X10*6/uL (4.60-5.80); Red Cell Distribution Width 14.6 % (11.0-16.0); White Blood Count 5.4 X10*3/uL (4.8-10.8)
[2023-10-24 08:19] LABS: D Dimer High Sensitivity 343 NG/ML
[2023-10-24 08:27] LABS: B Type Natriuretic Peptide 179 pg/mL (<100)
[2023-10-24 08:39] LABS: Erythrocyte Sedimentation Rate 6 MM/HR (0-15)
[2023-10-24 08:45] LABS: Alanine Aminotransferase 19 U/L (0-40); Albumin Level 3.9 g/dL (3.5-5.0); Alkaline Phosphatase 56 U/L (39-117); Anion Gap 11 (12-20); Aspartate Amino Transferase 28 U/L (5-37); Bilirubin Total 0.4 mg/dL (0.0-1.0); Blood Urea Nitrogen 23 mg/dL (9-16); C Reactive Protein < 0.10 mg/dL (< or = 0.50); Calcium 9.3 mg/dL (8.4-10.2); Carbon Dioxide 29 mmol/L (22-29); Chloride 108 mmol/L (96-108); Cholesterol 124 mg/dL (<200); Estimated Glomerular Filt Rate > 60; Glucose Random 98 mg/dL (60-115); HDL Cholesterol 44 mg/dL (>40); LDL Cholesterol Calculated 69 mg/dL (<100); Potassium 3.9 mmol/L (3.3-5.1); Sodium 144 mmol/L (135-145); Total Protein 7.9 g/dL (6.5-8.0); Triglycerides 59 mg/dL (<150)
[2023-10-24 08:59] LABS: Folate 15.7 ng/mL (> or = 4.0); Vitamin B12 923 pg/mL (200-900)
== END 2023-10-24 07:28 | disposition home or self-care (01) ==
LOC: HO.LAB 07:27
PROVIDERS: Visit Provider Internal Medicine
DX: E78.00 Pure hypercholesterolemia, unspecified (principal); I48.0 Paroxysmal atrial fibrillation; M80.00XD Age-related osteoporosis with current pathological fracture, unspecified site, subsequent encounter for fracture with routine healing; X58.XXXD Exposure to other specified factors, subsequent encounter
CPT/HCPCS: 36415; 80053; 80061; 82306; 82607; 82746; 83880; 84439; 84443; 85025; 85379; 85652; 86140

== ENCOUNTER 2023-12-30 13:25 | Outpatient (AMB) | payer MEDICARE, SELFPAY ==
[2023-12-30 13:28] VITALS: BP 102/60; PULSE 107; TEMP 36.4; O2SAT 96; BMI 22.1
--- NOTE | 2023-12-30 13:28 | MHC.OFFWIV ---
Intake Vital Signs 12/30/23 13:28 Height 6 ft Weight 163 lb BMI 22.1 BP 102/60 Blood Pressure Location Lt brachial Position Sitting Pulse 107 H Pulse Source Pulse Oximeter Temp 97.6 F Temp Source Oral Pulse Oximetry (%) 96 Oxygen Delivery Method Room Air Intake Visit Reasons: EP rash Intake Note: pt is here for rash in the inner thighs Patient Tobacco Use Status: Never used Tobacco Allergies No Known Allergies Allergy (Verified 12/30/23 13:29) Do you need a note to return to daycare/school/sports/work: No HPI HPI Comments History of Present Illness Details Patient is an 88-year-old male complaining of a rash to both of his thighs which came on suddenly 3 days ago. He reports it is not itchy. He states he went and saw the nurse at [facility], where he lives and the nurse recommended he come to an urgent care and ask for antibiotics and a steroid cream . He denies any fevers, bug bites. [facility] Medical History (Updated 12/30/23 @ 13:48 by Bernie Mann PA-C) Femoral artery pseudo-aneurysm, left Exposure to COVID-19 virus Pulmonary nodule Degenerative disc disease Severe aortic stenosis Left carotid stenosis Insomnia BPH (benign prostatic hyperplasia) Osteoporosis Surgical History S/P TAVR (transcatheter aortic valve replacement) History of appendectomy History of tonsillectomy and adenoidectomy H/O right inguinal hernia repair Trochanteric fracture of right femur Family History Father No problems noted. Mother No problems noted. Sister In good health Social History Housing: House Alcohol intake: current Alcohol intake frequency: holidays/special occasions only Patient Tobacco Use Status: Never used Tobacco e-Cigarette/Vaping Use: Never Used Second Hand Smoke Exposure: No Current occupational status: retired Cognitive needs: No Hearing needs: No Vision needs: No Review of Systems Const All systems reviewed & are unremarkable except as noted in HPI and below Physical Exam Vital Signs: Last Vital Signs Temp 97.6 F 12/30/23 13:28 Pulse 107 H 12/30/23 13:28 BP 102/60 12/30/23 13:28 Pulse Ox 96 12/30/23 13:28 Oxygen Delivery Method Room Air 12/30/23 13:28 BMI result Body Mass Index 22.1 Const General: cooperative, healthy appearing, comfortable, no acute distress and well developed Orientation/consciousness: patient oriented x3 Limitations: no limitations Eyes General: appearance normal, both eyes and all related structures Resp Effort & Inspection: normal respiratory effort and able to speak in complete sentences Skin Other: Bilateral lower extremities mostly on thighs there is a flat, purpuric rash; it does not raiza, not vesicular, no warmth noted. Neuro General: patient oriented x3 Results AMB Urinalysis, Automated UA Leukoctes 0 Didi/uL Last Edit by Fidencio Foster CMA on 12/30/23 14:24 UA Nitrite Negative Last Edit by Fidencio Foster CMA on 12/30/23 14:24 UA Urobilinogen 0.2 mg/dL Last Edit by Fidencio Foster CMA on 12/30/23 14:24 UA Protein 0 mg/dL Last Edit by Fidencio Foster CMA on 12/30/23 14:24 UA pH 6.0 Last Edit by Fidencio Foster CMA on 12/30/23 14:24 UA Blood 0 Julian/uL Last Edit by Fidencio Foster CMA on 12/30/23 14:24 UA Specific Viola 1.010 Last Edit by Fidencio Foster CMA on 12/30/23 14:24 UA Ketone Negative Last Edit by Fidencio Foster CMA on 12/30/23 14:24 UA Bilirubin 0 mg/dL Last Edit by Fidencio Foster CMA on 12/30/23 14:24 UA Glucose 0 mg/dL Last Edit by Fidencio Foster CMA on 12/30/23 14:24 Results Reviewed Results Reviewed: Laboratory Last Values Urine pH (Auto) 6.0 12/30/23 14:23 Specific Viola (Auto) 1.010 12/30/23 14:23 Urine Protein (Auto) 0 mg/dL 12/30/23 14:23 Glucose (UA)(Auto) 0 mg/dL 12/30/23 14:23 Urine Ketones (Auto) Negative 12/30/23 14:23 Urine Blood (Auto) 0 Julian/uL 12/30/23 14:23 Urine Nitrite (Auto) Negative 12/30/23 14:23 Urine Bilirubin (Auto) 0 mg/dL 12/30/23 14:23 Urine Urobilinogen (Auto) 0.2 mg/dL 12/30/23 14:23 Leukocyte Esterase (Auto) 0 Didi/uL 12/30/23 14:23 Assessment & Plan Assessment & Plan (1) Acute purpuric eruption: Code(s): R21 - Rash and other nonspecific skin eruption Plan: We will get UA and chemistry panel today and get an appointment for him to follow up with his PCP in a week so they can repeat and see if his kidneys are affected and ? further workup for HSP. Patient was adamant that he not follow up with primary care doctor because he was getting upset about the [facility] . I encouraged him to follow up and even offered to have him come here to repeat his chemistry panel and his urinalysis but he was adamant that he not do anything unless he starts feeling symptomatic. He was also adamant that we do a steroid burst, which I agreed to. Reviewed risks and benefits of medication/steroid. Plan see above. Orders: Orders UA and rflx microscopic Today R21 - Rash and other nonspecific skin eruption Comprehensive Met. Panel Today R21 - Rash and other nonspecific skin eruption AMB Urinalysis Automated Today Z13.9 - Encounter for screening, unspecified Medications: New prednisone 40 mg (2 x 20 mg) PO DAILY 10 tabs 0RF Coding Level of Care Code Est Pt Level 4 (74531) Diagnoses Acute purpuric eruption R21
== END 2023-12-30 14:39 | disposition home or self-care (01) ==
PROVIDERS: PCP Internal Medicine; Visit Provider Physician Assistant
DX: R21 Rash and other nonspecific skin eruption (principal)
CPT/HCPCS: 81003; 99214

== ENCOUNTER 2023-12-30 13:49 | Outpatient (REF) | payer MEDICARE, SELFPAY | END 2023-12-30 13:50 | disposition home or self-care (01) | LOC: HO.LAB 13:49 | PROVIDERS: Visit Provider Physician Assistant | DX: Z13.89 Encounter for screening for other disorder (principal) ==

== ENCOUNTER 2024-01-08 09:26 | Outpatient (REF) | payer MEDICARE, SELFPAY ==
[2024-01-08 09:49] LABS: MANUAL DIFF FLAG NO
[2024-01-08 10:16] LABS: Basophils Absolute Auto 0.1 X10*3/uL (0.0-0.2); Basophils Percent Auto 0.4 % (0-2); Eosinophils Absolute Auto 0.1 X10*3/uL (0.0-0.4); Eosinophils Percent Auto 0.6 % (0-4); Hematocrit 37.6 % (42.0-52.0); Imm Gran Abs Auto 0.08 X10*3/uL (0.00-0.03); Imm Gran Pct Auto 0.7 % (0.0-0.4); Lymphocytes Absolute Auto 1.1 X10*3/uL (1.2-4.9); Lymphocytes Percent Auto 9.2 % (20-40); Mean Corpuscular HGB Conc 31.9 g/dl (31.0-36.0); Mean Corpuscular Hemoglobin 29.8 pg (27.0-33.0); Mean Corpuscular Volume 93.3 fL (80.0-98.0); Mean Platelet Volume 9.4 fL (9.4-12.4); Monocytes Absolute Auto 0.8 X10*3/uL (0.1-1.2); Neutrophils Absolute Auto 9.5 x10*3/uL (2.0-8.3); Neutrophils Percent Auto 82.1 % (45-73); Platelet Count 542 X10*3/uL (160-400); Red Blood Count 4.03 X10*6/uL (4.60-5.80); Red Cell Distribution Width 14.5 % (11.0-16.0); White Blood Count 11.5 X10*3/uL (4.8-10.8)
[2024-01-08 10:22] LABS: Appearance Urine Clear; Color Urine Yellow; Glucose Urine UA Negative (Negative); Leukocyte Esterase Urine Trace (Negative); Nitrite Urine Negative (Negative); Specific Gravity - Urine 1.015 (1.005-1.025); UMIC TRIGGER UA YES; Urine Blood Negative (Negative); Urine Ketones Negative (Negative); Urine Protein Negative (Neg-Trace)
[2024-01-08 10:24] LABS: Bacteria Urine None Seen (None Seen); Hyaline Casts Urine 0-2 /LPF (0-2); RBC Urine 0-2 /HPF (0-2); Squamous Epithelial Cell Urine 0-2 /HPF (0-2); WBC Urine 0-5 /HPF (0-5)
[2024-01-08 11:07] LABS: Alanine Aminotransferase 14 U/L (0-40); Albumin Level 3.3 g/dL (3.5-5.0); Alkaline Phosphatase 77 U/L (39-117); Anion Gap 12 (12-20); Aspartate Amino Transferase 17 U/L (5-37); Bilirubin Total 0.6 mg/dL (0.0-1.0); Blood Urea Nitrogen 17 mg/dL (9-16); Calcium 8.8 mg/dL (8.4-10.2); Carbon Dioxide 27 mmol/L (22-29); Chloride 103 mmol/L (96-108); Estimated Glomerular Filt Rate > 60; Glucose Random 148 mg/dL (60-115); Potassium 4.6 mmol/L (3.3-5.1); Sodium 137 mmol/L (135-145); Total Protein 7.8 g/dL (6.5-8.0)
== END 2024-01-08 09:27 | disposition home or self-care (01) ==
LOC: HO.LAB 09:26
PROVIDERS: PCP Internal Medicine; Visit Provider Internal Medicine
DX: R21 Rash and other nonspecific skin eruption (principal)
CPT/HCPCS: 36415; 80053; 81001; 85025

== ENCOUNTER 2024-02-25 13:25 | Outpatient (AMB) | payer MEDICARE, SELFPAY ==
[2024-02-25 13:27] VITALS: BP 150/70; BMI 23.2
--- NOTE | 2024-02-25 13:27 | A.OFFPC_ITS ---
Vital Signs 02/25/24 13:27 Height 5 ft 10 in Weight 162 lb BMI 23.2 BP 150/70 H Blood Pressure Location Lt brachial Position Sitting Pulse Source Pulse Oximeter Oxygen Delivery Method Room Air Intake Visit Reasons: S/p TAVR Allergies No Known Allergies Allergy (Verified 02/25/24 13:28) Tobacco use date assessed: 08/27/23 Fall risk assessment: No Falls in past year Last assessed Fall Risk: 02/25/24 Dental Screening Dental Screen Date: 08/27/23 HPI S/p TAVR HPI Details 88-year-old male with severe aortic sten osis status post TAVR 2020, osteoporosis atrial fibrillation hypercholesterolemia and coronary artery disease last seen in August 2023. Urgent care visit in December due to a rash on the thighs. Treated with prednisone. Patient had ultrasound of the carotids in November 2023 both less than 50%. Did see Cardiology 11/27/2023 for the atrial fibrillation to continue with anticoagulation for the CAD moderate coronary artery disease on aspirin and cholesterol medication for the cholesterol on atorvastatin December blood work did show some mild anemia with hemoglobin 12 and hematocrit of 37.6. Noted also thrombocytosis at 542. [facility] Medical History (Updated 02/25/24 @ 13:57 by Esteban Salgado MD) Acute purpuric eruption Abrasion, leg w/o infection Visit for suture removal Right leg swelling Blood pressure elevated without history of HTN Femoral artery pseudo-aneurysm, left Exposure to COVID-19 virus Pulmonary nodule Degenerative disc disease Severe aortic stenosis Left carotid stenosis Insomnia BPH (benign prostatic hyperplasia) Osteoporosis Surgical History S/P TAVR (transcatheter aortic valve replacement) History of appendectomy History of tonsillectomy and adenoidectomy H/O right inguinal hernia repair Trochanteric fracture of right femur Family History Father No problems noted. Mother No problems noted. Sister In good health Social History Housing: House Alcohol intake: current Alcohol intake frequency: holidays/special occasions only Patient Tobacco Use Status: Never used Tobacco Tobacco use type: Cigarette e-Cigarette/Vaping Use: Never Used Second Hand Smoke Exposure: No Current occupational status: retired Cognitive needs: No Hearing needs: No Vision needs: Yes Questionnaire PHQ-9 Over the last 2 weeks, how often have you been bothered by any of the following problems? 1. Little interest or pleasure in doing things: not at all 2. Feeling down, depressed, or hopeless: not at all 3. Trouble falling or staying asleep, or sleeping too much: not at all 4. Feeling tired or having little energy: not at all 5. Poor appetite or overeating: not at all 6. Feeling bad about yourself - or that you are a failure or have let yourself or your family down: not at all 7. Trouble concentrating on things, such as reading the newspaper or watching television: not at all 8. Moving or speaking so slowly that other people could have noticed. Or the opposite - being so fidgety or restless that you have been moving around a lot more than usual: not at all 9. Thoughts that you would be better off or of hurting yourself in some way: not at all Total score: 0 Depression Screening Interpretation: Negative Depression Screening Done: Yes Source: Developed by Drs. Vimal Jaquez, Kat Tirado, Mckay Falk and colleagues, with an educational destiny from [employer]. Thrive Questionnaire Date Thrive assessed: 07/17/23 TAYE-7 AMB Questionnaire TAYE-7 Date TAYE - 7 assessed: 07/17/23 Source: Developed by Drs. Vimal Jaquez, Kat Tirado, Mckay Falk and colleagues, with an educational destiny from [employer]. Physical exam (Primary Care) Vital Signs: Oxygen Delivery Method Room Air 02/25/24 13:27 BMI result Body Mass Index 23.2 Tobacco/Smoking Status: Tobacco use Status Tobacco use date assessed 08/27/23 02/25/24 13:33 Patient Tobacco Use Status Never used Tobacco 02/25/24 13:33 Tobacco use type Cigarette 02/25/24 13:33 e-Cigarette/Vaping Use Never Used 02/25/24 13:33 PHQ-9: PHQ-9 Score PHQ-9: Total score 0 02/25/24 13:33 Depression Screening Interpretation: Negative Thrive Assessment: Date of Thrive Assessment Date Thrive assessed 07/17/23 02/25/24 13:33 Const General: alert; No acute distress Eyes Conjunctivae: conjunctivae normal Resp Auscultation: clear to auscultation bilaterally Cardio Other: Irregularly irregular heart rhythm. GI Inspection: Yes normal to inspection Extrem General: Yes normal to inspection and No edema Assessment and Plan Assessment & Plan (1) Severe aortic stenosis: Comment: Echocardiogram 2015 mild , May 2018 severe EF 60-65%, May 2019 EF 60% severe , TAVR September 20/2021 Dr. Roberson Code(s): I35.0 - Nonrheumatic aortic (valve) stenosis Plan: Patient continues to be followed up by Cardiology (2) S/P TAVR (transcatheter aortic valve replacement): Comment: 09/20/[address] Roberson balloon aortic valvuloplasty Code(s): Z95.2 - Presence of prosthetic heart valve Plan: Patient continues to be followed up by Cardiology (3) Carotid artery stenosis: Comment: August 2020 catheterization done moderate diffuse atherosclerotic coronary arteries nonobstructing 12/2023 ultrasound less than 50% Code(s): I65.29 - Occlusion and stenosis of unspecified carotid artery Plan: December testing reveals less than 50%. (4) Coronary artery disease: Code(s): I25.10 - Atherosclerotic heart disease of [place] coronary artery without angina pectoris Qualifiers: Associated angina: without angina Coronary Disease-Associated Artery/Lesion type: [place] artery [place] vs. transplanted heart: [place] heart Qualified Code(s): I25.10 - Atherosclerotic heart disease of [place] coronary artery without angina pectoris Plan: Control the cholesterol, weight, blood pressure. Patient on anticoagulation (5) Paroxysmal atrial fibrillation: Code(s): I48.0 - Paroxysmal atrial fibrillation Plan: Continue with anticoagulation with Eliquis. (6) Hypercholesterolemia: Comment: decline medical treatment 12/2021 Code(s): E78.00 - Pure hypercholesterolemia, unspecified Plan: Avoid fried foods, chicken skin, eggs, butter margarine, pastries and meat. Be it pork or beef they have a lot of cholesterol LDL goal of less than 70 and triglyceride of less than 150 on atorvastatin 10 mg once a day (7) Acute purpuric eruption: Code(s): R21 - Rash and other nonspecific skin eruption Plan: resolved (8) Elevated blood sugar: Code(s): R73.9 - Hyperglycemia, unspecified Plan: Advised repeat blood work fasting (9) Thrombocytosis: Code(s): D75.839 - Thrombocytosis, unspecified Plan: Advised repeat blood work Orders: Orders Comprehensive Met. Panel Today E78.00 - Pure hypercholesterolemia, unspecified Hemoglobin A1c Today E78.00 - Pure hypercholesterolemia, unspecified Complete Blood Count Auto Diff Today E78.00 - Pure hypercholesterolemia, unspecified XR DEXA axial skeleton Today M80.00XD - Age-related osteoporosis with current pathological fracture, unspecified site, subsequent encounter for fracture with routine healing, M81.0 - Age-related osteoporosis without current pathological fracture Coding Level of Care Code Est Pt Level 4 (64240) Diagnoses Severe aortic stenosis I35.0 S/P TAVR (transcatheter aortic valve replacement) Z95.2 Carotid artery stenosis I65.29 Coronary artery disease involving [place] coronary artery of [place] heart without angina pectoris I25.10 Associated angina: without angina Coronary Disease-Associated Artery/Lesion type: [place] artery [place] vs. transplanted heart: [place] heart Paroxysmal atrial fibrillation I48.0 Hypercholesterolemia E78.00 Acute purpuric eruption R21 Elevated blood sugar R73.9 Thrombocytosis D75.839
== END 2024-02-25 13:56 | disposition home or self-care (01) ==
PROVIDERS: PCP Internal Medicine; Visit Provider Internal Medicine
DX: I35.0 Nonrheumatic aortic (valve) stenosis (principal); Z95.2 Presence of prosthetic heart valve; I65.29 Occlusion and stenosis of unspecified carotid artery; I25.10 Atherosclerotic heart disease of native coronary artery without angina pectoris; I48.0 Paroxysmal atrial fibrillation; E78.00 Pure hypercholesterolemia, unspecified; R21 Rash and other nonspecific skin eruption; R73.9 Hyperglycemia, unspecified; D75.839 Thrombocytosis, unspecified
CPT/HCPCS: 99214

== ENCOUNTER 2024-02-28 07:03 | Outpatient (REF) | payer MEDICARE, SELFPAY ==
[2024-02-28 07:29] LABS: MANUAL DIFF FLAG NO
[2024-02-28 07:54] LABS: Basophils Absolute Auto 0.1 X10*3/uL (0.0-0.2); Basophils Percent Auto 1.2 % (0-2); Eosinophils Absolute Auto 0.3 X10*3/uL (0.0-0.4); Eosinophils Percent Auto 4.3 % (0-4); Hematocrit 39.3 % (42.0-52.0); Imm Gran Abs Auto 0.02 X10*3/uL (0.00-0.03); Imm Gran Pct Auto 0.3 % (0.0-0.4); Lymphocytes Absolute Auto 1.5 X10*3/uL (1.2-4.9); Lymphocytes Percent Auto 21.1 % (20-40); Mean Corpuscular HGB Conc 33.1 g/dl (31.0-36.0); Mean Corpuscular Hemoglobin 30.4 pg (27.0-33.0); Mean Platelet Volume 9.7 fL (9.4-12.4); Monocytes Absolute Auto 0.7 X10*3/uL (0.1-1.2); Monocytes Percent Auto 9.3 % (2-11); Neutrophils Absolute Auto 4.7 x10*3/uL (2.0-8.3); Neutrophils Percent Auto 63.8 % (45-73); Platelet Count 242 X10*3/uL (160-400); Red Blood Count 4.27 X10*6/uL (4.60-5.80); Red Cell Distribution Width 14.1 % (11.0-16.0); White Blood Count 7.3 X10*3/uL (4.8-10.8)
[2024-02-28 08:06] LABS: Alanine Aminotransferase 15 U/L (0-40); Albumin Level 3.7 g/dL (3.5-5.0); Alkaline Phosphatase 66 U/L (39-117); Anion Gap 13 (12-20); Aspartate Amino Transferase 21 U/L (5-37); Bilirubin Total 0.4 mg/dL (0.0-1.0); Blood Urea Nitrogen 22 mg/dL (9-16); Calcium 9.5 mg/dL (8.4-10.2); Carbon Dioxide 28 mmol/L (22-29); Chloride 105 mmol/L (96-108); Estimated Glomerular Filt Rate 60; Glucose Random 99 mg/dL (60-115); Potassium 4.6 mmol/L (3.3-5.1); Sodium 141 mmol/L (135-145); Total Protein 7.8 g/dL (6.5-8.0)
[2024-02-28 08:11] LABS: Estimated Average Glucose 97 mg/dL
== END 2024-02-28 07:04 | disposition home or self-care (01) ==
LOC: HO.LAB 07:03
PROVIDERS: PCP Internal Medicine; Referring Provider Internal Medicine; Visit Provider Internal Medicine
DX: Z13.1 Encounter for screening for diabetes mellitus (principal); E78.00 Pure hypercholesterolemia, unspecified
CPT/HCPCS: 36415; 80053; 83036; 85025

== ENCOUNTER 2024-03-26 10:37 | Outpatient (REF) | payer MEDICARE, SELFPAY ==
--- NOTE | ~2024-03-26 | MM_ITS ---
EXAMINATION: BONE DENSITOMETRY CLINICAL INDICATION: Age-related osteoporosis without current pathological fracture. COMPARISON: Previous BD dated 01/12/2022 and baseline BD dated 04/13/2016. TECHNIQUE: Using a [email or web address] DXA System (software version: 13.1) manufactured by [employer], dual-energy x-ray absorptiometry was performed of the lumbar spine and left hip. The images are of good technical quality. Summary results are attached. FINDINGS: LEFT FEMUR, NECK: Current: BMD 0.594 g/cm2, Z-score -1.8, T-score -3.7, osteoporosis. Prior: BMD 0.618 g/cm2. Baseline: BMD 0.487 g/cm2. LEFT FEMUR, TOTAL: Current: BMD 0.718 g/cm2, Z-score -1.1, T-score -2.7, osteoporosis, 1.4% decrease from previous, 36.5% increase from baseline (<5% change is not significant). Prior: BMD 0.728 g/cm2. Baseline: BMD 0.526 g/cm2. AP SPINE L1-L2 (excluding L3 and L4): The data of L1-L4 has been changed to exclude the L3 and L4 vertebral bodies, because significant degenerative change at these levels may cause overestimation of lumbar spine density. Current: BMD 1.003 g/cm2, Z-score -0.6, T-score -1.6, osteopenia, 5.3% decrease from previous, 5.1% increase from baseline (<5% change is not significant). Prior: BMD 1.059 g/cm2. Baseline: BMD 0.954 g/cm2. IDENTIFIED RISK FACTORS: Height loss, history of fracture (adult), osteoporosis, parental hip fracture. HISTORY OF FRACTURE: Hip. MEDICATIONS: Calcium supplements or multivitamin, vitamin D, bisphosphonate. MM/XR DEXA axial skeleton IMPRESSION: 1. DIAGNOSIS: Severe osteoporosis based on the lowest T-score value of -3.7 in the femoral neck and history of fracture applying World Health Organization criteria. 2. 10-YEAR FRACTURE RISK PREDICTION, FRAX: According to the guidelines, FRAX calculation should only be performed on patients in the osteopenia bone density category. Therefore, FRAX was not performed on this patient. 3. Treatment Recommendations: NOF guidelines recommend consideration for treatment in postmenopausal women and men age 50 and older presenting with the following: -A hip or vertebral (clinical or morphometric) fracture. -T-score less than or equal to -2.5 at the femoral neck or spine after appropriate evaluation to exclude secondary causes. -Low bone mass at the hip or spine and a 10-year fracture probability by FRAX of greater than or equal to 3% for hip fracture or greater than or equal to 20% for major osteoporotic fracture based on the [place] adapted WHO algorithm. 4. Other Recommendations: All treatment decisions require clinical judgment and consideration of individual patient factors, including patient preferences, comorbidities, previous drug use, risk factors not captured in the FRAX model (e.g. frailty, falls, vitamin D deficiency, increased bone turnover, interval significant decline in bone density) and possible under or overestimation of fracture risk by FRAX. Additional medical evaluation for secondary cause of low bone mineral density may be appropriate. FUTURE SCAN RECOMMENDATION: People with diagnosed cases of osteoporosis or at high risk for fracture should have regular bone mineral density tests. For patients eligible for Medicare, routine testing is allowed once every 2 years. The testing frequency can be increased to one year for patients who have rapidly progressing disease, those who are receiving or discontinuing medical therapy to restore bone mass, or have additional risk factors. Electronically signed by: Orlin Negrete MD 04/07/2024 08:55 AM EDT
== END 2024-03-26 10:38 | disposition home or self-care (01) ==
LOC: HO.MAMMO 10:37
PROVIDERS: PCP Internal Medicine; Visit Provider Internal Medicine
DX: M81.0 Age-related osteoporosis without current pathological fracture (principal)
CPT/HCPCS: 77080

== ENCOUNTER 2024-06-03 09:46 | Outpatient (AMB) | payer MEDICARE, SELFPAY ==
[2024-06-03 09:50] VITALS: BP 122/50; PULSE 101; O2SAT 93; BMI 23.7
--- NOTE | 2024-06-03 09:50 | A.OFFPC_ITS ---
Vital Signs 06/03/24 09:50 Height 5 ft 10 in Weight 165 lb 2 oz BMI 23.7 BP 122/50 L Blood Pressure Location Lt brachial Position Sitting Pulse 101 H Pulse Source Pulse Oximeter Pulse Oximetry (%) 93 Oxygen Delivery Method Room Air Intake Visit Reasons: 06/16 1st cataract 07/14 2nd cataract [facility] Hand Required: No Accompanied by: Self / Same As Patient Allergies No Known Allergies Allergy (Verified 06/03/24 10:13) Medication List - Last Reconciled 06/03/24 by Daisy Frances PA-C acetaminophen (Tylenol Extra Strength) 1,000 mg PO Q6H PRN apixaban (Eliquis) 5 mg PO BID ascorbate calcium (vitamin C) 500 mg PO DAILY aspirin 81 mg PO DAILY atorvastatin 10 mg PO DAILY cholecalciferol (vitamin D3) 50 mcg PO DAILY 90 days furosemide 20 mg PO DAILY multivitamin 1 tab PO DAILY terazosin 5 mg PO DAILY trazodone 150 mg PO BEDTIME vitamins A,C,F-xnua-zfghma 4,296 mcg-226 mg-90 mg (PreserVision AREDS) 1 cap PO BID Tobacco use date assessed: 08/27/23 Fall risk assessment: No Falls in past year Last assessed Fall Risk: 06/03/24 Dental Screening Dental Screen Date: 08/27/23 HPI 06/16 1st cataract 07/14 2nd cataract [facility] HPI Details 88-year-old male with past medical histo ry of severe aortic stenosis status post TAVR 2020, osteoporosis, atrial fibrillation on anticoagulation, hypercholesterolemia, coronary artery disease last seen January 2024 coming in for preoperative exam.? In review of the notes patient was seen by Cardiology 04/14/2024 advised to continue on apixaban for atrial fibrillation, continue with high-dose statin and aspirin and advised repeat echocardiogram and follow up in 6 months. Patient is scheduled to have cataract surgery with [facility] 06/16/2024 and 07/14/2024. Coronary artery disease: EKG ordered by Cardiology and was reviewed by Cardiology found to be stable and unchanged since last EKG. [facility] Medical History Acute purpuric eruption Abrasion, leg w/o infection Visit for suture removal Right leg swelling Blood pressure elevated without history of HTN Femoral artery pseudo-aneurysm, left Exposure to COVID-19 virus Pulmonary nodule Degenerative disc disease Severe aortic stenosis Left carotid stenosis Insomnia BPH (benign prostatic hyperplasia) Osteoporosis Surgical History S/P TAVR (transcatheter aortic valve replacement) History of appendectomy History of tonsillectomy and adenoidectomy H/O right inguinal hernia repair Trochanteric fracture of right femur Family History Father No problems noted. Mother No problems noted. Sister In good health Social History Housing: House Alcohol intake: current Alcohol intake frequency: holidays/special occasions only Patient Tobacco Use Status: Never used Tobacco Tobacco use type: Cigarette e-Cigarette/Vaping Use: Never Used Second Hand Smoke Exposure: No service: No Current occupational status: retired Cognitive needs: No Hearing needs: No Vision needs: Yes Questionnaire Thrive Questionnaire Date Thrive assessed: 07/17/23 TAYE-7 AMB Questionnaire TAYE-7 Date TAYE - 7 assessed: 07/17/23 Source: Developed by Drs. Vimal Jaquez, Kat Tirado, Mckay Falk and colleagues, with an educational destiny from [employer]. Review of Systems Const Denies body aches, Denies chills, Denies fever(s), Denies headache(s) and Denies poor appetite Eyes Reports no additional complaints ENT Denies dysphagia, Denies dizziness, Denies headache(s) and Denies odynophagia Card Denies chest pain, Denies syncope, Denies edema, Denies irregular heart rhythm, Denies lightheadedness and Denies dyspnea Resp Denies cough and Denies dyspnea GI Denies abdominal pain, Reports constipation, Denies dysphagia, Denies diarrhea, Denies nausea, Denies odynophagia and Denies vomiting Reports no additional complaints Musc Reports no additional complaints and Denies abnormal gait Skin/Breast Reports system reviewed and no additional complaints, except as documented Neuro Denies abnormal gait, Denies dizziness, Denies syncope and Denies headache(s) Psych Reports no additional complaints Physical exam (Primary Care) Vital Signs: Last Vital Signs Pulse 101 H 06/03/24 09:50 BP 122/50 L 06/03/24 09:50 Pulse Ox 93 06/03/24 09:50 Oxygen Delivery Method Room Air 06/03/24 09:50 BMI result Body Mass Index 23.7 Tobacco/Smoking Status: Tobacco use Status Tobacco use date assessed 08/27/23 06/03/24 09:54 Patient Tobacco Use Status Never used Tobacco 06/03/24 09:54 Tobacco use type Cigarette 06/03/24 09:54 e-Cigarette/Vaping Use Never Used 06/03/24 09:54 Thrive Assessment: Date of Thrive Assessment Date Thrive assessed 07/17/23 06/03/24 09:54 Const General: cooperative, healthy appearing, comfortable and no acute distress Orientation/consciousness: patient oriented x3 HENMT Head: Yes normocephalic Neck Neck: Yes normal visual inspection, Yes full ROM and Yes no lymphadenopathy Chest Chest palpation & inspection: normal inspection of the chest Resp Effort & Inspection: normal respiratory effort Auscultation: clear to auscultation bilaterally, no crackles, no rales, no rhonchi, no wheezes and breath sounds present Cardio Rate: regular rate Rhythm: regular rhythm Peripheral pulses: radial pulses present and dorsalis pedis present GI Inspection: Yes normal to inspection and No Abdominal wall edema Palpation (GI): Soft to palpation, not firm and nontender Auscultation: normal bowel sounds Rectal Exam - Male: Yes deferred General: Yes no CVA tenderness Back/Spine/Pelvis Back: no CVA tenderness Skin General skin exam: no rashes or lesions noted Neuro General: patient oriented x3 Cranial nerves: Yes Midline tongue present and Yes Ability to bilaterally elevate shoulders present Gait exam (Neuro): Normal gait present Extrem General: Yes normal to inspection, Yes full ROM, No no pedal edema and No edema Psych Speech and movement: Normal speech and movement present Affect: normal affect Insight: Good insight present (Psych) Judgement: Good judgement present (Psych) Coding Level of Care Code Est Pt Level 3 (64459) Diagnoses Pre-op evaluation Z01.818 Assessment & Plan Assessment & Plan (1) Pre-op evaluation: Code(s): Z01.818 - Encounter for other preprocedural examination Category: Medical Plan: Regarding preop clearance, the patient is at moderate risk for proposed surgery due to age and comorbidities which are well managed at this time. Reviewed with the patient that no surgery is completely free of risk and that this examination is to assist the surgeon in reviewing informed consent. As modern cataract surgeries rarely cause any bleeding, he is advised that he should continue on his low dose Aspirin 81 mg QD; he should also be able to continue on his Eliquis? but is advised that I will leave it up to the discretion of the director machine performing the procedure if he is comfortable with patient being on Eliquis or not for his eye surgery. Discussed with patient he should reach out to the director machine regarding discontinuation of anticoagulation and whether or not it is appropriate. EKG and blood work evaluated, patient was seen by Cardiology 03/2024 an EKG was evaluated at that time found to be stable and unchanged since last EKG. No f urther workup needed at this time and may proceed with the contemplated procedure. Thank you very much for letting me participate in the care of this patient. Plan This note was constructed using voice recognition software. While every effort has been made to ensure accuracy and field radio operator, still areas may have been included sometimes these areas may affect the content or meeting of the given symptoms. Total time spent caring for the patient today was 20 minutes. This includes time spent before the visit reviewing the chart, time spent during the visit, and time spent after the visit and documentation. Orders: Orders Basic Metabolic Panel Today Z01.818 - Encounter for other preprocedural examination Medications: Discontinued furosemide Discontinued Reason: Patient no longer taking 20 mg PO DAILY 30 tabs 0RF I48.0 - Paroxysmal atrial fibrillation
== END 2024-06-03 10:33 | disposition home or self-care (01) ==
PROVIDERS: PCP Internal Medicine
DX: Z01.818 Encounter for other preprocedural examination (principal)

== ENCOUNTER → 2024-06-03 09:46 | Outpatient (BNVA) | payer MEDICARE, SELFPAY | PROVIDERS: PCP Internal Medicine | DX: Z01.818 Encounter for other preprocedural examination (principal) | CPT/HCPCS: 99212 ==

== ENCOUNTER 2024-08-18 13:13 | Outpatient (AMB) | payer MEDICARE, SELFPAY ==
[2024-08-18 13:15] VITALS: BP 134/68; PULSE 103; O2SAT 97; BMI 24.2
--- NOTE | 2024-08-18 13:15 | MHC.PC.OV ---
Vital Signs 08/18/24 13:15 Height 5 ft 10 in Weight 169 lb BMI 24.2 BP 134/68 Blood Pressure Location Lt brachial Position Sitting Pulse 103 H Pulse Source Pulse Oximeter Pulse Oximetry (%) 97 Oxygen Delivery Method Room Air Intake Visit Reasons: 6 Month F/U Allergies No Known Allergies Allergy (Verified 08/18/24 13:16) Tobacco use date assessed: 08/18/24 Fall risk assessment: No Falls in past year Last assessed Fall Risk: 08/18/24 Dental Screening Dental Screen Date: 08/18/24 Did you have a dental visit in the last 12 months?: Yes Did you have a dental problem in the last 6 months where you did not have access to dental care?: No Was dental information given to patient?: Patient has dentist HPI 6 Month F/U HPI Details The patient is an 89-year-old male presenting for a follow-up visit. He has a significant medical history, having undergone a Transcatheter Aortic Valve Replacement (TAVR) in August 2020. He has known coronary artery disease and has been maintained on Pepciman 5 mg twice a day along with statin therapy and aspirin for management. The patient also has bilateral carotid artery stenosis, with the most recent ultrasound in November 2023 revealing 50% stenosis bilaterally. He suffers from atrial fibrillation and hypercholesterolemia, both of which are under ongoing management. The last lipid panel conducted in September 2023 indicated an LDL of 69. Additionally, blood work from January 2024 confirmed chronic anemia, with stable renal function, normal sugar levels, and stable liver function. The patient lives a sedentary lifestyle and continues to be monitored for symptoms, considering his comprehensive history of cardiovascular diseases. Patient has indicated shortness of breath on exertion recently but declined further workup and would like to get the Cardiology to see him and work it up. Discussed about doing another echocardiogram as well as the EKG. On examination noted to have a fast heart rate. [facility] Medical History Acute purpuric eruption Abrasion, leg w/o infection Visit for suture removal Right leg swelling Blood pressure elevated without history of HTN Femoral artery pseudo-aneurysm, left Exposure to COVID-19 virus Pulmonary nodule Degenerative disc disease Severe aortic stenosis Left carotid stenosis Insomnia BPH (benign prostatic hyperplasia) Osteoporosis Surgical History S/P TAVR (transcatheter aortic valve replacement) History of appendectomy History of tonsillectomy and adenoidectomy H/O right inguinal hernia repair Trochanteric fracture of right femur Family History Father No problems noted. Mother No problems noted. Sister In good health Social History Housing: House Alcohol intake: current Alcohol intake frequency: holidays/special occasions only Patient Tobacco Use Status: Never used Tobacco Tobacco use type: Cigarette e-Cigarette/Vaping Use: Never Used Second Hand Smoke Exposure: No service: No Current occupational status: retired Cognitive needs: No Hearing needs: No Vision needs: Yes Questionnaire PHQ-9 Over the last 2 weeks, how often have you been bothered by any of the following problems? 1. Little interest or pleasure in doing things: not at all 2. Feeling down, depressed, or hopeless: not at all 3. Trouble falling or staying asleep, or sleeping too much: not at all 4. Feeling tired or having little energy: not at all 5. Poor appetite or overeating: not at all 6. Feeling bad about yourself - or that you are a failure or have let yourself or your family down: not at all 7. Trouble concentrating on things, such as reading the newspaper or watching television: not at all 8. Moving or speaking so slowly that other people could have noticed. Or the opposite - being so fidgety or restless that you have been moving around a lot more than usual: not at all 9. Thoughts that you would be better off or of hurting yourself in some way: not at all Total score: 0 Depression Screening Interpretation: Negative Depression Screening Done: Yes Source: Developed by Drs. Vimal Jaquez, Kat Tirado, Mckay Falk and colleagues, with an educational destiny from [employer]. Thrive Questionnaire Date Thrive assessed: 08/18/24 I am a: Patient What is your living situation today?: I have a steady place to live Within the past 12 months, did the food you bought not last and you didn't have the money to get more?: Never true Within the past 12 months, did you worry whether your food would run out before you got money to buy more?: Never true Do you have trouble paying for medicines?: No Do you have trouble getting transportation to medical appointments?: No Do you have trouble paying your heating and electricity bill?: No Do you have trouble taking care of your child, family member or friend?: No Do you have trouble with day-to-day activities such as bathing, preparing meals, shopping, managing finances, etc.?: No Are you currently unemployed and looking for a job?: No Are you interested in more education?: No Currently or been in a relationship where the following occur: No concerns reported THRIVE Score: 0 AUDIT C Alcohol Use Questionnaire (AUDIT-C) 1. How often do you have a drink containing alcohol?: Monthly or less 2. How many drinks containing alcohol do you have on a typical day when you are drinking?: 1 or 2 3. How often do you have six or more drinks on one occasion?: Never Total Score: 1 TAYE-7 AMB Questionnaire TAYE-7 Date TAYE - 7 assessed: 08/18/24 Feeling nervous, anxious, or on edge: 0 = Not at all Not being able to stop or control worryin = Not at all Worrying too much about different things: 0 = Not at all Trouble relaxin = Not at all Being so restless that it is hard to sit still: 0 = Not at all Becoming easily annoyed or irritable: 0 = Not at all Feeling afraid as if something awful might happen: 0 = Not at all Total TAYE-7 score (0-4 normal; 5-9 mild; 10-14 moderate; 15-21 severe): 0 Source: Developed by Drs. Vimal Jaquez, Kat Tirado, Mckay Falk and colleagues, with an educational destiny from [employer]. Physical exam (Primary Care) Vital Signs: Last Vital Signs Pulse 103 H 08/18/24 13:15 BP 134/68 08/18/24 13:15 Pulse Ox 97 08/18/24 13:15 Oxygen Delivery Method Room Air 08/18/24 13:15 BMI result Body Mass Index 24.2 Tobacco/Smoking Status: Tobacco use Status Tobacco use date assessed 08/18/24 08/18/24 13:26 Patient Tobacco Use Status Never used Tobacco 08/18/24 13:26 Tobacco use type Cigarette 08/18/24 13:26 e-Cigarette/Vaping Use Never Used 08/18/24 13:26 PHQ-9: PHQ-9 Score PHQ-9: Total score 0 08/18/24 13:47 Depression Screening Interpretation: Negative Thrive Assessment: Date of Thrive Assessment Date Thrive assessed 08/18/24 08/18/24 13:26 Currently or been in a relationship where the following occur: No concerns reported Const General: alert; No acute distress Eyes Conjunctivae: conjunctivae normal Resp Auscultation: clear to auscultation bilaterally Cardio Other: Irregular rate and rhythm and rapid ventricular rate to about 110 GI Inspection: Yes normal to inspection Extrem General: Yes normal to inspection and No edema Coding Level of Care Code Est Pt Level 4 (13793) Complex EM visit Add On G2211 Diagnoses Age-related osteoporosis with current pathological fracture with routine healing, subsequent encounter M80.00XD Encounter type: subsequent encounter Fracture healing: with routine healing Osteoporosis type: age-related Presence of current pathological fracture: with current pathological fracture Carotid artery stenosis I65.29 Coronary artery disease involving [place] coronary artery of [place] heart without angina pectoris I25.10 Associated angina: without angina Coronary Disease-Associated Artery/Lesion type: [place] artery [place] vs. transplanted heart: [place] heart S/P TAVR (transcatheter aortic valve replacement) Z95.2 Paroxysmal atrial fibrillation I48.0 Hypercholesterolemia E78.00 SOB (shortness of breath) on exertion R06.02 Assessment & Plan Assessment & Plan (1) Osteoporosis: Comment: July 2018, December 202103/2024 Code(s): M81.0 - Age-related osteoporosis without current pathological fracture Category: Medical Qualifiers: Encounter type: subsequent encounter Fracture healing: with routine healing Osteoporosis type: age-related Presence of current pathological fracture: with current pathological fracture Qualified Code(s): M80.00XD - Age-related osteoporosis with current pathological fracture, unspecified site, subsequent encounter for fracture with routine healing Plan: Up-to-date with bone density and will continue to monitor (2) Carotid artery stenosis: Comment: August 2020 catheterization done moderate diffuse atherosclerotic coronary arteries nonobstructing 12/2023 ultrasound less than 50% Code(s): I65.29 - Occlusion and stenosis of unspecified carotid artery Category: Medical Plan: Stable carotids continue to monitor (3) Coronary artery disease: Code(s): I25.10 - Atherosclerotic heart disease of [place] coronary artery without angina pectoris Category: Medical Qualifiers: Associated angina: without angina Coronary Disease-Associated Artery/Lesion type: [place] artery [place] vs. transplanted heart: [place] heart Qualified Code(s): I25.10 - Atherosclerotic heart disease of [place] coronary artery without angina pectoris Plan: Control the cholesterol, weight, blood pressure, diabetes on aspirin 81 mg once a day (4) S/P TAVR (transcatheter aortic valve replacement): Comment: 09/20/[address] Roberson balloon aortic valvuloplasty Code(s): Z95.2 - Presence of prosthetic heart valve Category: Surgical Plan: Continue to follow up with Cardiology and echocardiogram is due and will be seeing Cardiology (5) Paroxysmal atrial fibrillation: Code(s): I48.0 - Paroxysmal atrial fibrillation Category: Medical Plan: Continue with anticoagulation presently with Eliquis continue to monitor renal function (6) Hypercholesterolemia: Comment: decline medical treatment 12/2021 Code(s): E78.00 - Pure hypercholesterolemia, unspecified Category: Medical Plan: Avoid fried foods, chicken skin, eggs, butter margarine, pastries and meat. Be it pork or beef they have a lot of cholesterol LDL goal of less than 70 and triglyceride of less than 150. September last blood work and discussed about repeating blood work (7) SOB (shortness of breath) on exertion: Code(s): R06.02 - Shortness of breath Category: Medical Plan: advised to follow up with cardiology- concern on RVR a fib and need for echo Plan - Continue current management with Pepciman 5 mg twice a day, statin therapy, and aspirin. - Monitor for any symptoms related to coronary artery disease and adjust therapy if necessary. - Follow up on chronic anemia with periodic complete blood counts and assess for potential contributing factors. - Maintain regular cardiovascular monitoring given status post TAVR and current carotid stenosis results. - Advise continuation of lifestyle modifications, considering the patient's sedentary activity. Orders: Orders Complete Blood Count Auto Diff 2 Months I25.10 - Atherosclerotic heart disease of [place] coronary artery without angina pectoris Free T4 (Free Thyroxine) 2 Months I25.10 - Atherosclerotic heart disease of [place] coronary artery without angina pectoris Thyroid Stimulating Hormone 2 Months I25.10 - Atherosclerotic heart disease of [place] coronary artery without angina pectoris Vitamin B12 and Folate 2 Months I25.10 - Atherosclerotic heart disease of [place] coronary artery without angina pectoris C Reactive Protein 2 Months I25.10 - Atherosclerotic heart disease of [place] coronary artery without angina pectoris B Type Natriuretic Peptide 2 Months I25.10 - Atherosclerotic heart disease of [place] coronary artery without angina pectoris Magnesium Today I25.10 - Atherosclerotic heart disease of [place] coronary artery without angina pectoris Uric Acid 2 Months I25.10 - Atherosclerotic heart disease of [place] coronary artery without angina pectoris Comprehensive Met. Panel 2 Months I25.10 - Atherosclerotic heart disease of [place] coronary artery without angina pectoris Lipid Panel 2 Months E78.00 - Pure hypercholesterolemia, unspecified, I25.10 - Atherosclerotic heart disease of [place] coronary artery without angina pectoris Erythrocyte Sedimentation Rate 2 Months I25.10 - Atherosclerotic heart disease of [place] coronary artery without angina pectoris
--- OUTSIDE RECORDS SUMMARY | 2024-08-18 14:08 | XMS_ITS | Clinical Summary ---
Author Organization [facility] Address [address] [place] [address] Care Team Providers Care Mud Grinder Name Role Phone Esteban Salgado MD Primary Care Provider [phone] Allergies No known active allergies Medications Eliquis 5 mg tablet Take 1 tablet (5 mg total) by mouth 2 (two) times a day. 4 Active amoxicillin (AMOXIL) 500 mg tablet Take four tablets (2,000 mg) by mouth 30-60 minutes prior to dental cleanings or procedures. 4 tablet 1 4 Active acetaminophen (TYLENOL) 500 mg tablet Take 2 Tablets by mouth at bedtime. 9 Active ascorbic acid, vitamin C, 500 mg capsule Take 500 mg by mouth daily. 9 Active atorvastatin (LIPITOR) 10 mg tablet Take 1 Tablet by mouth daily for 360 days. 4 11/22/19 25 Active cholecalciferol (VITAMIN D-3) 50 mcg (2,000 unit) tablet Take 1 Tablet by mouth daily. Active diphenhydrAMINE (BENADRYL) 25 mg tablet 2 tablets daily at bedtime 9 Active docusate sodium (COLACE) 50 mg capsule Take 50 mg by mouth daily. Active IRON GLYCINATE,POLYS ACCH CMPLX ORAL Iron Glycinate 29 MG Cap Take 1 Capsule by mouth daily. - Oral Active melatonin 3 mg tablet extended release Take 3 mg by mouth at bedtime. 9 Active FA/mv,Ca,iron,m in/lycopene/lut (MULTIVITAL ORAL) 1 Tablet daily. 9 Active vit C/E/Zn/coppr/margarita tein/zeaxan (PRESERVISION AREDS-2 ORAL) Take 1 Tablet by mouth 2 times daily. Active terazosin (HYTRIN) 5 mg capsule Take 5 mg by mouth daily. 9 Active traZODone (DESYREL) 150 mg tablet Take 1 Tablet by mouth at bedtime. 9 Active Active Problems Problem Noted Date Diagnosed Date Hyperlipidemia 10/01/2022 Overview (06/26/2024): Last Assessment & Plan: Patient has history of hyperlipidemia as well as a history of CAD and carotid artery stenosis. He continues on atorvastatin as prescribed. Last fasting lipid panel showed acceptable cholesterol control. He will continue current therapies. Carotid disease, bilateral 04/25/2022 Overview (06/26/2024): Last Assessment & Plan: Last carotid duplex 11/2023 showed less than 50% stenosis in the bilateral carotid arteries. He continues on aspirin and statin. Atrial fibrillation 06/08/2021 Overview (06/26/2024): Last Assessment & Plan: Patient has a history of longstanding persistent atrial fibrillation. He is not currently on any rate control medications. His heart rate is adequate today. He denies any perception or palpitations or dizziness. He continues on apixaban 5 mg orally twice daily based on his age, weight, and kidney function. No episodes of abnormal bleeding or bruising have been reported. Will continue current therapies. CAD (coronary artery disease) 06/08/2021 Overview (06/26/2024): Last Assessment & Plan: Patient has a history of coronary artery disease. He denies any anginal symptoms or episodes of chest pain. He continues on statin and aspirin as prescribed. Nonrheumatic aortic valve stenosis 08/25/2020 Overview (06/26/2024): TAVR done at [facility] on 09/19/2020 Last Assessment & Plan: He is doing well status post TAVR. He is up-to-date on his post TAVR imaging. We will continue to monitor this. He is on amoxcillin for prophlaxis. He will likely need an echocardiogram around the time of his next visit. As he has been stable we have held off on doing this sooner. He has also been less interested in over testing. We respected his wishes And keepThis to a Minimum. Encounters Date Type Department Care Team Description 07/15/2024 Telephone [facility] [address] [place] [address] [place] [address] Esteban Salgado MD Medical Records 06/25/[address] [place] [address] Talha Murrieta MD dental procedure 06/12/[address] [place] [address] Franklin Roberson MD 05/25/[address] [place] [address] Talha Murrieta MD from Last 3 Months Surgical History Surgery Date Site/Laterality Comments HERNIA REPAIR PROCEDURE: HISTORICAL HERNIA REPAIR/ING APPENDECTOMY PROCEDURE: HISTORICAL APPENDECTOMY TONSILLECTOMY PROCEDURE: HISTORICAL TONSILLECTOMY ADENOIDECTOMY PROCEDURE: HISTORICAL ADENOIDECTOMY OTHER SURGICAL HISTORY PROCEDURE: SC UNLISTED PROCEDURE CARDIAC SURGERY FEMUR FRACTURE SURGERY Right PROCEDURE: SC OPEN TX FEMORAL FRACTURE DISTAL MED/LAT CONDYLE Medical History Medical History Date Comments BPH (benign prostatic hyperplasia) DX:BPH (benign prostatic hyperplasia) H/O degenerative disc disease DX :H/O degenerative disc disease Insomnia DX:Insomnia Osteoporosis DX:Osteoporosis Pulmonary nodule DX:Pulmonary no dule Social History Tobacco Use Types Packs/Day Years Used Date Smoking Tobacco: Former Cigarettes Q uit: 07/01/1985 Smokeless Tobacco: Former Alcohol Use Standard Drinks/Week Comments Yes 0 (1 standard drink = 0.6 oz pur e alcohol) Sex and Gender Information Value Date Recorded Sex Assigned at Not on file Legal Sex Male 4:23 PM EST Gender Identity Not on file Sexual Orientation Not on file Obstetrics History Last Filed Vital Signs Vital Sign Reading Time Taken Comments Blood Pressure 136/82 04/14/2024 12:59 PM EDT Si tting L Arm Pulse 71 04/14/2024 12:59 PM EDT Temperature - - Respiratory Rate - - Oxygen Saturation - - Inhaled Oxygen Concentration - - Weight 74.8 kg (165 lb) 04/14/2024 12:59 PM EDT Height 182.9 cm (6') 04/14/2024 12:59 PM EDT Body Mass Index 22.38 04/14/2024 12:59 PM EDT Plan of Treatment Upcoming Encounters Date Type Department Care Team (Late st Contact Info) Description 11/03/2024 10:50 AM EDT Office Visit [facility] [address] [place] [id number] Talha Murrieta MD [address] [place] [address] [address] [place] [address] Health Maintenance Due Date Last Done Comments DTaP,Tdap,and Td Vaccines (1 - Tdap) 1956 Zoster Vaccines (1 of 2) 1987 RSV Immunization Patients 60+ Years Old (1 - 1-dose 75+ series) 2012 Pneumococcal Vaccine: 50+ Years (2 of 2 - PCV) 03/31/2019 03/31/2018 Cholesterol Screening (Lipid Panel) 05/30/2022 Depression Screening 05/30/2022 Falls Risk Assessment 05/30/2022 Medicare Annual Wellness Visit 05/30/2022 Social Influencers of Health Screening 05/30/2022 Hypertension/CHF/CAD Annual BMP Blood Test 06/10/2022 COVID-19 Vaccine ( season) 2024 Influenza Vaccine (#1) 2024 3, 04/06/2021, 04/23/2020, Additional history exists HIB Vaccines Aged Out No longer eligi ble based on patient's age to complete this topic HPV Vaccines Aged Out No longer eligi ble based on patient's age to complete this topic Hepatitis A Vaccines Aged Out No long er eligible based on patient's age to complete this topic Hepatitis B Vaccines Aged Out No long er eligible based on patient's age to complete this topic IPV Vaccines Aged Out No longer eligi ble based on patient's age to complete this topic MMR Vaccines Aged Out No longer eligi ble based on patient's age to complete this topic Meningococcal ACWY Vaccine Aged Out N o longer eligible based on patient's age to complete this topic Meningococcal B Vacine Aged Out No lo nger eligible based on patient's age to complete this topic RSV Immunization Patients Under 20 months Aged Out No longer eligible based on patient's age to complete this topic Varicella Vaccines Aged Out No longer eligible based on patient's age to complete this topic Insurance [facility] [address] [place] [address] MEDICARE Care Teams Mud Grinder Relationship Specialty Start Date End Date Esteban Salgado MD [address] [place] [address] [address] [facility] [place] [address] PCP - General Internal Medicine 06/01/20
== END 2024-08-18 14:09 | disposition home or self-care (01) ==
PROVIDERS: PCP Internal Medicine; Visit Provider Internal Medicine
DX: M80.00XD Age-related osteoporosis with current pathological fracture, unspecified site, subsequent encounter for fracture with routine healing (principal); I65.29 Occlusion and stenosis of unspecified carotid artery; I25.10 Atherosclerotic heart disease of native coronary artery without angina pectoris; Z95.2 Presence of prosthetic heart valve; I48.0 Paroxysmal atrial fibrillation; E78.00 Pure hypercholesterolemia, unspecified; R06.02 Shortness of breath

== ENCOUNTER → 2024-08-18 13:13 | Outpatient (BNVA) | payer MEDICARE, SELFPAY | PROVIDERS: PCP Internal Medicine; Visit Provider Internal Medicine | DX: M80.00XD Age-related osteoporosis with current pathological fracture, unspecified site, subsequent encounter for fracture with routine healing (principal); I65.29 Occlusion and stenosis of unspecified carotid artery; I25.10 Atherosclerotic heart disease of native coronary artery without angina pectoris; I48.0 Paroxysmal atrial fibrillation; E78.00 Pure hypercholesterolemia, unspecified; R06.02 Shortness of breath; Z95.2 Presence of prosthetic heart valve | CPT/HCPCS: 99212 ==

== ENCOUNTER 2024-10-14 07:11 | Outpatient (REF) | payer MEDICARE, SELFPAY ==
[2024-10-14 07:27] LABS: MANUAL DIFF FLAG NO
[2024-10-14 07:55] LABS: Basophils Absolute Auto 0.1 X10*3/uL (0.0-0.2); Basophils Percent Auto 0.7 % (0-2); Eosinophils Absolute Auto 0.1 X10*3/uL (0.0-0.4); Hematocrit 39.7 % (42.0-52.0); Hemoglobin 12.9 g/dl (14.0-18.0); Imm Gran Abs Auto 0.02 X10*3/uL (0.00-0.03); Imm Gran Pct Auto 0.3 % (0.0-0.4); Lymphocytes Absolute Auto 0.5 X10*3/uL (1.2-4.9); Lymphocytes Percent Auto 6.9 % (20-40); Mean Corpuscular HGB Conc 32.5 g/dl (31.0-36.0); Mean Corpuscular Hemoglobin 29.9 pg (27.0-33.0); Mean Corpuscular Volume 91.9 fL (80.0-98.0); Mean Platelet Volume 10.1 fL (9.4-12.4); Monocytes Absolute Auto 0.5 X10*3/uL (0.1-1.2); Monocytes Percent Auto 7.2 % (2-11); Neutrophils Absolute Auto 5.9 x10*3/uL (2.0-8.3); Neutrophils Percent Auto 82.9 % (45-73); Platelet Count 188 X10*3/uL (160-400); Red Blood Count 4.32 X10*6/uL (4.60-5.80); Red Cell Distribution Width 15.3 % (11.0-16.0); White Blood Count 7.1 X10*3/uL (4.8-10.8)
[2024-10-14 08:15] LABS: B Type Natriuretic Peptide 1016 pg/mL (<100)
[2024-10-14 08:20] LABS: Alanine Aminotransferase 21 U/L (0-40); Alkaline Phosphatase 66 U/L (39-117); Anion Gap 13 (12-20); Aspartate Amino Transferase 33 U/L (5-37); Bilirubin Total 0.7 mg/dL (0.0-1.0); Blood Urea Nitrogen 21 mg/dL (9-16); C Reactive Protein 0.41 mg/dL (< or = 0.50); Calcium 9.3 mg/dL (8.4-10.2); Carbon Dioxide 25 mmol/L (22-29); Chloride 106 mmol/L (96-108); Cholesterol 98 mg/dL (<200); Estimated Glomerular Filt Rate 58; Glucose Random 102 mg/dL (60-115); HDL Cholesterol 39 mg/dL (>40); LDL Cholesterol Calculated 50 mg/dL (<100); Magnesium 2.1 mg/dL (1.6-2.6); Potassium 4.2 mmol/L (3.3-5.1); Sodium 140 mmol/L (135-145); Total Protein 7.7 g/dL (6.5-8.0); Triglycerides 48 mg/dL (<150); Uric Acid 7.6 mg/dL (3.4-7.0)
[2024-10-14 08:42] LABS: Free T4 (Free Thyroxine) 1.07 ng/dL (0.71-1.85); Thyroid Stimulating Hormone 3.97 uIU/mL (0.32-4.0)
[2024-10-14 08:53] LABS: Folate 19.4 ng/mL (> or = 4.0); Vitamin B12 1073 pg/mL (200-900)
[2024-10-14 08:59] LABS: Erythrocyte Sedimentation Rate 14 MM/HR (0-15)
== END 2024-10-14 07:12 | disposition home or self-care (01) ==
LOC: HO.LAB 07:11
PROVIDERS: PCP Internal Medicine; Visit Provider Internal Medicine
DX: I25.10 Atherosclerotic heart disease of native coronary artery without angina pectoris (principal); I10 Essential (primary) hypertension; E78.00 Pure hypercholesterolemia, unspecified
CPT/HCPCS: 36415; 80053; 80061; 82607; 82746; 83735; 83880; 84439; 84443; 84550; 85025; 85652; 86140

== ENCOUNTER 2024-12-17 | Outpatient (REF) | payer MEDICARE, SELFPAY ==
--- NOTE | ~2024-12-17 | XR_ITS ---
CLINICAL HISTORY: M25.569 - Pain in unspecified knee 3 view bilateral knee Comparison: None provided Findings: Bones intact. No dislocations. There are minor degenerative changes. Significant vascular calcifications are seen. There may be lateral joint space narrowing on the right. No joint effusion. No radiopaque foreign body. IMPRESSION: 1. No acute findings. Minor degenerative changes. Vascular calcifications. Lateral joint space narrowing on the right. This document has been electronically signed by: Alex Ramsay MD on 12/18/2024 10:51:46
--- OUTSIDE RECORDS SUMMARY | 2024-12-29 10:02 | XMS_ITS | Patient Health Record ---
Author Organization [facility] Address [address] [place] [address] Care Team Providers Care Tile Presser Name Role Phone Rl Fernando MD Primary Care Provider Oleg Adams Jr Unavailable Reason For Referral No Information Medications Medication SIG (Take, Route, Frequency, Duration) Notes Start Date End Date Status Vitamin D 2000iu Act flynn Aspir-81 81mg Active Vitamin C 500mg Acti ve Melatonin 0.5g Activ e traZODone HCl 150mg Active Terazosin HCl 5mg Ac tive [place] 3 1000mg Activ e Multi Vitamin/Minerals 07/01/20242024 Active Benadryl 2/25mg Acti ve Potassium Chloride 10mg Active Tylenol 2/500mg Acti ve Social History Tobacco Use: Social History Observation Description Date Details (start date - stop date) Never Smoker NA - NA Tobacco Use/Smoking Question Answer Notes Patient is a nonsmoker Alcohol Screen Question Answer Notes Did you have a drink contain ing alcohol in the past year? Yes Points 2 Interpretation Negative How often did you have a dri nk containing alcohol in the past year? 2 to 4 times a month (2 points) How many drinks did you have on a typical day when you were drinking in the past year? 1 or 2 drinks (0 point) How often did you have 6 or more drinks on one occasion in the past year? Never (0 point) Problems Problem Type SNOMED Code ICD Code Onset Dates Problem Status W/U Status Risk Notes Problem Constipation (564.00) Active confirmed Plan Of Treatment No Information Insurance Providers Payer Name Payer Address Payer Phone Subscriber Number Group Number Insured Name Patient Relationship to Insured Coverage Start Date Coverage End Date MEDICARE OF [place] [address] [place] [address] [phone] [id number] FELECIA PIMENTEL Self - patient is the insured MEDEX ATTN CLAIMS [address] [place] [address] [id number] PIA Panda FELECIA Self - patient is the insured Medical (General) History Medical History History ICD Code Hx of tubular adenoma and hyperplastic p olyps Enlarged prostate Insomnia Surgical History Surgery Date(Month/Year) Appendectomy Wedge resection of an abscess from right midddle lobe of lung Right inguinal herniorrhaphy cyst removal on tip of finger
--- OUTSIDE RECORDS SUMMARY | 2024-12-29 10:02 | XMS_ITS | Clinical Summary ---
Author Organization [facility] Address [address] [place] [address] Phone Care Team Providers Care Commercial Review Appraiser Name Role Phone Esteban Salgado MD Primary Care Provider [phone] Allergies No known active allergies Medications Eliquis [...] V24, CMS/HCC V28) 11/03/2024 Assessment & Plan (12/21/2024 2:28 [...] taking the medication Candidate for ICD or BOOT MAKER: Not a candidate at this point given [...] adequate. Also, the patient has an increased LLU2ID3-LTXe score and continues on anticoagulation therapy with [...] to rule out any worsening of his [place] CAD as a cause of his cardiomyopathy. [...] valve 08/25/2020 Overview (06/26/2024): TAVR done at [facility] on 09/19/2020 Last Assessment & Plan: He [...] in August [address] Roberson at [facility] via a TAVR technique. His last echocardiogram [...] 12/21/2024 2:00 PM EDT Office Visit [facility] [address] [place] [address] Anastacio Long MD MGUS (monoclonal gammopathy of unknown significance) (Primary Dx); Pure hypercholesterolemia; History of aortic valve replacement with bioprosthetic valve; HFrEF (heart failure with reduced ejection fraction) (CMS/HCC V24, CMS/HCC V28); Coronary artery disease involving [place] coronary artery of [place] heart without angina pectoris; Longstanding persistent atrial fibrillation (CMS/HCC V24, CMS/HCC V28); Bilateral carotid artery stenosis 12/04/2024 Telephone [facility] [address] [place] [address] Anastacio Long MD Results 11/30/2024 10:00 AM EDT Ancillary Procedure [facility] [address] [place] [address] HFrEF (heart failure with reduced ejection fraction) (CMS/HCC V24, CMS/HCC V28) 11/26/2024 10:50 AM EDT Office Visit [facility] [address] [place] [address] Anastacio Long MD Atrial fibrillation, unspecified type (CMS/HCC V24, CMS/HCC V28) (Primary Dx); Coronary artery disease involving [place] coronary artery of [place] heart with angina pectoris (CMS/HCC V24); HFrEF (heart failure with reduced ejection fraction) (CMS/HCC V24, CMS/HCC V28); Pure hypercholesterolemia; History of aortic valve replacement with bioprosthetic valve; Chronic heart failure with preserved ejection fraction (CMS/HCC V24, CMS/HCC V28) 11/24/2024 Telephone [facility] [address] [place] [address] Anastacio Long MD speak with Dr. Almanzar (Speak with Dr. Almanzar ) 11/11/2024 Telephone [facility] [address] [place] [address] Anastacio Long MD Scheduling 11/11/2024 Telephone [facility] [address] [place] [address] Anastacio Long MD 11/10/2024 Telephone [facility] [address] [place] [address] Anastacio Long MD 11/09/[address] [facility] [address] [place] [address] [place] [address] Anastacio Long MD 11/09/2024 Telephone [facility] [address] [place] [address] Anastacio Long MD 11/04/2024 2:30 PM EDT Ancillary Procedure [facility] [address] [place] [id number] Coronary artery disease involving [place] coronary artery of [place] heart with angina pectoris (CMS/HCC V24); History of aortic valve replacement with bioprosthetic valve; Chronic heart failure with preserved ejection fraction (CMS/HCC V24, CMS/HCC V28) 11/03/2024 10:50 AM EDT Office Visit [facility] 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 [place] [address] Anastacio Long MD Lab work from Last 3 Months Surgical History Surgery Date Site/Laterality Comments HERNIA REPAIR PROCEDURE: HISTORICAL HERNIA REPAIR/ING APPENDECTOMY PROCEDURE: HISTORICAL APPENDECTOMY TONSILLECTOMY PROCEDURE: HISTORICAL TONSILLECTOMY ADENOIDECTOMY PROCEDURE: HISTORICAL ADENOIDECTOMY OTHER SURGICAL HISTORY PROCEDURE: WI UNLISTED PROCEDURE CARDIAC SURGERY FEMUR FRACTURE SURGERY Right PROCEDURE: WI OPEN TX FEMORAL FRACTURE DISTAL MED/LAT CONDYLE CARDIAC CATHETERIZATION DONE ON 09/27/2024 AT [facility] W KM INDICATIONS: Dyspnea with exertion. Medical [...] 3:30 PM EDT Coronary artery disease involving [place] coronary artery of [place] heart with angina pectoris (CMS/HCC V24) History [...] Nuclear Medicine Narrative 11/30/2024 5:49 PM EDT [facility] [address] [place] [address], [id number], [place] [address] TEL: FAX: Name: Bobby Reeder Date of [...] context of prior evaluation and referral to chain sales consultant or amyloid expert is recommended if [...] Study H/CL ratio is 1.07. us Anastacio Long MD CV STRESS PROCEDURES F inal Result * (ABNORMAL) [place]-lambda free light chains, quantitative (11/26/2024 12:06 PM EDT) Free [place] Lt Chains Serum 51.6(H) 3.3 - 19.4 mg/L [facility] Free Lambda Lt Chains Serum 22.9 5.7 - 26.3 mg/L [facility] 1 [place]/Lambda Ratio,S 2.25(H) 0.26 - 1.65 [facility] 1 Blood Venous blood specimen / Unknown 11/26/2024 12:06 PM EDT 11/26/2024 Narrative [facility] 1 - 11/27/2024 7:07 PM EDT Performed at: [facility] [id number] Tractor Engine Mechanic: Michaelle Martins MD, Phone: [phone] Anastacio Long MD LAB BLOOD ORDERABLES F inal Result Performing Organization Address City/[facility]/ZIP Co de Phone Number [facility] * (ABNORMAL) N-Terminal Probnp (11/26/2024 12:06 PM EDT) [facility] NT-proBNP 5,626(H) 0 - 486 pg/mL [...] - 11/27/2024 10:07 AM EDT Performed at: [facility] [id number] Tractor Engine Mechanic: Michaelle Martins MD, Phone: [phone] Anastacio Long MD LAB BLOOD ORDERABLES F inal Result [facility] * (ABNORMAL) CBC auto differential (11/26/2024 12:06 PM EDT) [facility] WBC 7.2 3.4 - 10.8 x10E3/uL [facility] [...] - 11/27/2024 7:06 AM EDT Performed at: 01 - [facility] [id number] Tractor Engine Mechanic: Michaelle Martins MD, Phone: [phone] us Anastacio Long MD LAB BLOOD ORDERABLES F inal Result [facility] * (ABNORMAL) Prothrombin time with INR (11/26/2024 12:06 PM EDT) Pathologist [facility] International Normalized Ratio (INR) 1.3(H) 0.9 - [...] - 11/27/2024 4:06 AM EDT Performed at: [address] [place] [id number] Tractor Engine Mechanic: Michaelle Martins MD, Phone: [phone] Anastacio Long MD LAB BLOOD ORDERABLES F inal Result Performing Organization Address [facility] Co de Phone Number [facility] * (ABNORMAL) Immunofixation electrophoresis serum (11/26/2024 12:06 PM EDT) [facility] Immunofixation Result, Serum Comment(A ) [facility] [...] - 11/27/2024 6:07 PM EDT Performed at: [address] [place] [id number] Tractor Engine Mechanic: Michaelle Martins MD, Phone: [phone] Anastacio Long MD LAB BLOOD ORDERABLES F inal Result [facility] * Thyroid stimulating hormone (11/26/2024 12:06 PM EDT) Pathologist [facility] TSH 4.430 0.450 - 4.500 uIU/mL [facility] 1 Blood Venous blood specimen / Unknown 11/26/2024 12:06 PM EDT 11/26/2024 Narrative [facility] 1 - 11/27/2024 4:06 AM EDT Performed at: 01 - [facility] [id number] Tractor Engine Mechanic: Michaelle Martins MD, Phone: [phone] Anastacio Long MD LAB BLOOD ORDERABLES F inal Result [facility] 1 * Comprehensive metabolic panel (11/26/2024 12:06 PM EDT) Only the most recent of2 resultswithin the time period is included. Pathologist [facility] Glucose 94 70 - 99 mg/dL [facility] [...] AM EDT Performed at: 01 - [facility] [address] [id number] Tractor Engine Mechanic: Michaelle Martins MD, Phone: [phone] us Anastacio Long MD LAB BLOOD ORDERABLES F inal Result [facility] * ECG 12 lead (11/26/2024 10:56 AM EDT) Ventricular Rate ECG 73 BPM GEMUSE Atrial Rate 122 BPM GEMUSE QRS Duration 110 ms GEMUSE Q-T Interval 384 ms GEMUSE QTc 423 ms GEMUSE R [place] -82 degrees GEMUSE T [place] 46 degrees GEMUSE ECG Interpretation Atrial fibrillation Left axis deviation Anterior infarct , age undetermined Possible Lateral infarct , age undetermined Inferior infarct , age undetermined Abnormal ECG Confirmed by ANASTACIO LONG ([id number]) on 12/04/2024 5:56:59 PM GEMUSE 11/26/2024 10:5 6 AM EDT 12/04/2024 5:56 PM EDT us Anastacio Long MD ECG ORDERABLES Final Result Performing Organization Address City/[facility]/ZIP Co de Phone Number GEMUSE * (ABNORMAL) [...] 32 % CV PACS Left [facility] Minor [place] 5.8 cm CV PACS Left [facility] Major [place] 5.5 cm CV PACS [place] Area Sys [...] contrast. Anastacio Long MD CV ECHO PROCEDURES Fin al Result * Magnesium (11/03/2024 12:04 PM EDT) Magnesium 1.9 1.6 - 2.3 mg/dL [facility] 1 Blood Venous blood specimen / Unknown 11/03/2024 12:04 PM EDT 11/03/2024 Narrative [facility] 1 - 11/04/2024 8:07 AM EDT Performed at: 01 - [facility] [address] [id number] Tractor Engine Mechanic: Michaelle Martins MD, Phone: [phone] Anastacio Long MD LAB BLOOD ORDERABLES F inal Result [facility] 1 from Last 3 Months Insurance MEDICARE [facility] Care Teams Commercial Review Appraiser Relationship Specialty Start Date End Date Esteban Salgado MD [address] [place] [address] [address] [facility] [place] [address] PCP - General Internal Medicine 06/01/20
== END 2024-12-17 00:01 | disposition home or self-care (01) ==
LOC: HO.XRAY
PROVIDERS: PCP Internal Medicine; Visit Provider Internal Medicine
DX: M25.561 Pain in right knee (principal); M25.562 Pain in left knee
CPT/HCPCS: 73560

== ENCOUNTER 2024-12-17 10:22 | Outpatient (AMB) | payer MEDICARE, SELFPAY ==
--- NOTE | 2024-12-17 10:27 | MHC.PC.OV ---
Vital Signs 12/17/24 10:28 Height 5 ft 10 in Weight 171 lb 11.841 oz BMI 24.6 BP 136/74 Blood Pressure Location Lt brachial Position Sitting Pulse 90 Pulse Source Pulse Oximeter Pulse Oximetry (%) 96 Oxygen Delivery Method Room Air Intake Visit Reasons: Pain management referral, resched Loading Dock Hand Required: No Accompanied by: Self / Same As Patient Allergies No Known Allergies Allergy (Verified 12/17/24 10:28) Medication List - Last Reconciled 12/17/24 by Esteban Salgado MD acetaminophen (Tylenol Extra Strength) 1,000 mg PO Q6H PRN apixaban (Eliquis) 5 mg PO BID ascorbate calcium (vitamin C) 500 mg PO DAILY aspirin 81 mg PO DAILY atorvastatin 10 mg PO DAILY cholecalciferol (vitamin D3) 50 mcg PO DAILY 90 days comp.stocking,knee,long,medium As directed 20-30 mm HG diclofenac sodium 1% (Voltaren Arthritis Pain) 4 grams topical QID furosemide 20 mg PO DAILY melatonin 10 mg PO BEDTIME multivitamin 1 tab PO DAILY terazosin 5 mg PO DAILY trazodone 150 mg PO BEDTIME vitamins A,C,F-mmiz-atgnxt 4,296 mcg-226 mg-90 mg (PreserVision AREDS) 1 cap PO BID Tobacco use date assessed: 12/17/24 Fall risk assessment: No Falls in past year Last assessed Fall Risk: 12/17/24 Dental Screening Dental Screen Date: 12/17/24 Did you have a dental visit in the last 12 months?: Yes Did you have a dental problem in the last 6 months where you did not have access to dental care?: No Was dental information given to patient?: Patient has dentist HPI Pain management referral, resched HPI Details had cardiac cath done, no further stent placed. complains of bilateral knee pain and is asking for pain mgment [facility] Medical History (Updated 12/17/24 @ 11:27 by Esteban Salgado MD) Acute purpuric eruption Abrasion, leg w/o infection Visit for suture removal Right leg swelling Blood pressure elevated without history of HTN Femoral artery pseudo-aneurysm, left Exposure to COVID-19 virus Pulmonary nodule Degenerative disc disease Severe aortic stenosis Left carotid stenosis Insomnia BPH (benign prostatic hyperplasia) Osteoporosis Surgical History S/P TAVR (transcatheter aortic valve replacement) History of appendectomy History of tonsillectomy and adenoidectomy H/O right inguinal hernia repair Trochanteric fracture of right femur Family History Father No problems noted. Mother No problems noted. Sister In good health Social History Housing: House Alcohol intake: current Alcohol intake frequency: holidays/special occasions only Patient Tobacco Use Status: Never used Tobacco Tobacco use type: Cigarette e-Cigarette/Vaping Use: Never Used Second Hand Smoke Exposure: No service: No Current occupational status: retired Cognitive needs: No Hearing needs: No Vision needs: Yes Questionnaire PHQ-9 Over the last 2 weeks, how often have you been bothered by any of the following problems? 1. Little interest or pleasure in doing things: not at all 2. Feeling down, depressed, or hopeless: not at all 3. Trouble falling or staying asleep, or sleeping too much: not at all 4. Feeling tired or having little energy: not at all 5. Poor appetite or overeating: not at all 6. Feeling bad about yourself - or that you are a failure or have let yourself or your family down: not at all 7. Trouble concentrating on things, such as reading the newspaper or watching television: not at all 8. Moving or speaking so slowly that other people could have noticed. Or the opposite - being so fidgety or restless that you have been moving around a lot more than usual: not at all 9. Thoughts that you would be better off or of hurting yourself in some way: not at all Total score: 0 Depression Screening Interpretation: Negative Depression Screening Done: Yes Source: Developed by Drs. Vimal Jaquez, Kat Tirado, Mckay Falk and colleagues, with an educational destiny from [employer]. Thrive Questionnaire Date Thrive assessed: 12/17/24 I am a: Patient What is your living situation today?: I have a steady place to live Within the past 12 months, did the food you bought not last and you didn't have the money to get more?: Never true Within the past 12 months, did you worry whether your food would run out before you got money to buy more?: Never true Do you have trouble paying for medicines?: No Do you have trouble getting transportation to medical appointments?: No Do you have trouble paying your heating and electricity bill?: No Do you have trouble taking care of your child, family member or friend?: No Do you have trouble with day-to-day activities such as bathing, preparing meals, shopping, managing finances, etc.?: No Are you currently unemployed and looking for a job?: No Are you interested in more education?: No Please select the resources that you would like help with: None Currently or been in a relationship where the following occur: No concerns reported THRIVE Score: 0 AUDIT C Alcohol Use Questionnaire (AUDIT-C) 1. How often do you have a drink containing alcohol?: Monthly or less 2. How many drinks containing alcohol do you have on a typical day when you are drinking?: 1 or 2 3. How often do you have six or more drinks on one occasion?: Never Total Score: 1 TAYE-7 AMB Questionnaire TAYE-7 Date TAYE - 7 assessed: 12/17/24 Feeling nervous, anxious, or on edge: 0 = Not at all Not being able to stop or control worryin = Not at all Worrying too much about different things: 0 = Not at all Trouble relaxin = Not at all Being so restless that it is hard to sit still: 0 = Not at all Becoming easily annoyed or irritable: 0 = Not at all Feeling afraid as if something awful might happen: 0 = Not at all Total TAYE-7 score (0-4 normal; 5-9 mild; 10-14 moderate; 15-21 severe): 0 Source: Developed by Drs. Vimal Jaquez, Kat Tirado, Mckay Falk and colleagues, with an educational destiny from [employer]. Physical exam (Primary Care) Vital Signs: Last Vital Signs Pulse 90 12/17/24 10:28 BP 136/74 12/17/24 10:28 Pulse Ox 96 12/17/24 10:28 Oxygen Delivery Method Room Air 12/17/24 10:28 BMI result Body Mass Index 24.6 Tobacco/Smoking Status: Tobacco use Status Tobacco use date assessed 12/17/24 12/17/24 10:29 Patient Tobacco Use Status Never used Tobacco 12/17/24 10:29 Tobacco use type Cigarette 12/17/24 10:29 e-Cigarette/Vaping Use Never Used 12/17/24 10:29 PHQ-9: PHQ-9 Score PHQ-9: Total score 0 12/17/24 11:22 Depression Screening Interpretation: Negative Thrive Assessment: Date of Thrive Assessment Date Thrive assessed 12/17/24 12/17/24 10:29 Currently or been in a relationship where the following occur: No concerns reported Const General: alert; No acute distress Eyes Conjunctivae: conjunctivae normal Resp Auscultation: clear to auscultation bilaterally Cardio Rate: regular rate Rhythm: regular rhythm GI Inspection: Yes normal to inspection Extrem General: Yes normal to inspection and No edema Coding Level of Care Code Est Pt Level 4 (77211) Diagnoses S/P TAVR (transcatheter aortic valve replacement) Z95.2 Paroxysmal atrial fibrillation I48.0 Knee pain M25.569 Knee pain, bilateral M25.561; M25.562 Assessment & Plan Assessment & Plan (1) S/P TAVR (transcatheter aortic valve replacement): Comment: 09/20/[address] Roberson balloon aortic valvuloplasty Echocardiogram done 11/04/2024 ejection fraction 32% global hypokinesis more pronounced inferoseptal wall left ventricle mild hypertrophy aortic valve 26 mm TAVR bioprosthetic valve no changes compared to August 2021 mitral valve mild to moderate regurgitation with mild stenosis tricuspid valve [id number] regurgitation moderate pulmonary hypertension Code(s): Z95.2 - Presence of prosthetic heart valve Category: Surgical (2) Paroxysmal atrial fibrillation: Code(s): I48.0 - Paroxysmal atrial fibrillation Category: Medical (3) Knee pain: Code(s): M25.569 - Pain in unspecified knee Category: Medical (4) Knee pain, bilateral: Code(s): M25.561 - Pain in right knee; M25.562 - Pain in left knee Category: Medical Plan History of Present Illness The patient is an 89-year-old male presenting with knee pain. The knee pain has been persistent, and the patient is seeking a referral for pain management and an x-ray, which has not yet been performed. The patient has tried glucosamine and Tylenol for pain relief but finds it challenging to adhere to a regimen requiring application four times a day. The patient has a history of severe aortic stenosis, for which he underwent a transcatheter aortic valve replacement (TAVR). He also has osteoporosis, benign prostatic hyperplasia, carotid artery stenosis, coronary artery disease, atrial fibrillation, and hypercholesterolemia. The patient was last seen by cardiology on December 02, and an echocardiogram showed an ejection fraction of 32% with global hypokinesis and a severely dilated left atrium. The echocardiogram also indicated moderate mitral regurgitation and mild tricuspid regurgitation, with the TAVR functioning properly. The patient has been advised to increase furosemide and has chronic anemia, with recent blood work showing good renal function and elevated BNP levels. Health Maintenance Social History Review of Systems - Musculoskeletal: Reports knee pain. Physical Exam Results - Echocardiogram: Ejection fraction of 32%, global hypokinesis, severely dilated left atrium, moderate mitral regurgitation, mild tricuspid regurgitation, TAVR functioning properly. - Blood work: Anemia, good renal function (creatinine 1.19), elevated BNP, glucose 102 mg/dL, uric acid 7.6 mg/dL. Plan The patient will be referred to orthopedics for further evaluation of knee pain, with a request for an x-ray to be performed to assess the condition further. The patient has expressed a preference for non-surgical interventions, such as pain medication and injections, which will be communicated to the orthopedic team. Management of the patient's cardiac conditions will continue with the current regimen, including the increased dosage of furosemide as advised by cardiology. The patient is advised to continue with glucosamine and Tylenol for knee pain management, ensuring regular intake of glucosamine for optimal effect. Follow-up on the results of the x-ray and any further recommendations from orthopedics will be conducted to ensure comprehensive management of the knee pain. Patient was informed and verbally consented to the use of an ambient scribe for clinic note documentation during this visit. Discussion Notes I discussed with the patient the plan to refer him to orthopedics for his knee pain, emphasizing the importance of obtaining an x-ray to guide further management. We talked about the preference for non-surgical options, such as pain medication and injections, and I assured him that these preferences would be communicated to the orthopedic team. I also reviewed the management of his cardiac conditions, including the increased dosage of furosemide, and advised him to continue with glucosamine and Tylenol for knee pain. Patient Instructions - Follow up with orthopedics for knee pain evaluation and x-ray. - Continue taking glucosamine and Tylenol as directed for knee pain management. - Monitor for any changes in symptoms and report them to your healthcare provider. Orders: Orders XR Knee Stef 1or 2V Today M25.569 - Pain in unspecified knee Referrals Orthopedics Referral M25.569 - Pain in unspecified knee
[2024-12-17 10:28] VITALS: BP 136/74; PULSE 90; O2SAT 96; BMI 24.6
--- OUTSIDE RECORDS SUMMARY | 2024-12-17 11:44 | XMS_ITS | Clinical Summary ---
Author Organization [facility] Address [address] [place] [address] Phone Care Team Providers Care Residential Living Assistant Name Role Phone Esteban Salgado MD Primary Care Provider [phone] Allergies No known active allergies Medications Eliquis 5 mg tablet Take 1 tablet (5 mg total) by mouth 2 (two) times a day. 10/31/19 24 Active amoxicillin (AMOXIL) 500 mg tablet Take four tablets (2,000 mg) by mouth 30-60 minutes prior to dental cleanings or procedures. 4 tablet 1 06/26/20 24 Active acetaminophen (TYLENOL) 500 mg tablet Take 2 Tablets by mouth at bedtime. 12/31/19 19 Active ascorbic acid, vitamin C, 500 mg capsule Take 500 mg by mouth daily. 12/31/19 19 Active cholecalcifero l (VITAMIN D-3) 50 mcg (2,000 unit) tablet Take 1 Tablet by mouth daily. Active diphenhydrAMIN E (BENADRYL) 25 mg tablet 2 tablets daily at bedtime 12/31/19 19 Active docusate sodium (COLACE) 50 mg capsule Take 50 mg by mouth daily. Active melatonin 3 mg tablet extended release Take 3 mg by mouth at bedtime. 12/31/19 19 Active FA/mv,Ca,iron, min/lycopene/l ut (MULTIVITAL ORAL) 1 Tablet daily. 12/31/19 19 Active vit C/E/Zn/coppr/l utein/zeaxan (PRESERVISION AREDS-2 ORAL) Take 1 Tablet by mouth 2 times daily. Active terazosin (HYTRIN) 5 mg capsule Take 5 mg by mouth daily. 12/31/19 19 Active traZODone (DESYREL) 150 mg tablet Take 1 Tablet by mouth at bedtime. 12/31/19 19 Active multivitamin tablet Take 1 tablet by mouth 1 (one) time each day. Active aspirin 81 mg EC tablet Take 1 tablet (81 mg total) by mouth 1 (one) time each day. Active sacubitriL-wilber sartan (Entresto) 24-26 mg per tabletIndicati ons:HFrEF (heart failure with reduced ejection fraction) (CMS/HCC V24, CMS/HCC V28) Take 1 tablet by mouth 2 (two) times a day. 180 each 3 11/12/19 25 026 Active furosemide (LASIX) 20 mg tabletIndicati ons:Chronic heart failure with preserved ejection fraction (CMS/HCC V24, CMS/HCC V28) Take 1 tablet (20 mg total) by mouth 1 (one) time each day. 11/27/19 25 Active atorvastatin (LIPITOR) 10 mg tablet TAKE ONE TABLET BY MOUTH EVERY DAY 90 tablet 3 12/04/19 25 Active atorvastatin (LIPITOR) 10 mg tablet Take 1 Tablet by mouth daily for 360 days. 11/27/19 24 025 Discontinued(Du plicate order) furosemide (LASIX) 20 mg tabletIndicati ons:Chronic heart failure with preserved ejection fraction (CMS/HCC V24, CMS/HCC V28) Take 2 tablets (40 mg total) by mouth 1 (one) time each day. 60 each 5 11/04/19 25 025 Discontinued atorvastatin (LIPITOR) 10 mg tablet Take 1 tablet (10 mg total) by mouth at bedtime. 025 Discontinued Hospital, Clinic, or Other Facility Administered Medication Ordered Dose Route Frequency Start Date End Date Status TC-99M oxidronate radio-isotope injection 21 millicurie 21 millicurie IV Once in imaging 11/30/2024 11/30/2024 Ended Active Problems Problem Noted Date Diagnosed Date HFrEF (heart failure with re duced ejection fraction) (CMS/HCC V24, CMS/HCC V28) 11/03/2024 Assessment & Plan (12/04/2024 6:01 PM EDT): The patient has heart failure with reduced ejection fraction. Etiology: To be determined Last ischemic work-up: 1. Left heart catheter in August 2020 showed moderate diffuse coronary artery disease. Follow-up left heart cath scheduled for tomorrow Last documented LVEF: 1. Echocardiogram done in October 2024 showed an LVEF of 32% Current symptom classification: NYHA class Guideline directed medical therapy: 1. Beta-blockers: None 2. ARNI / KENIA inhibitor / ARB: Entresto 24/26 mg orally twice a day 3. MRA: None 4. SGL2 inhibitor: None 5. Loop diuretic: The patient was prescribed furosemide but he is not taking the medication Candidate for ICD or METAL HANGER: Not a candidate at this point given that the GDMT for his heart failure is still pending to be optimized. Plan of care: 1. Restart furosemide at 20 mg orally daily. The patient was explained the importance of the furosemide and he is agreeable to taking at least a low-dose of furosemide. 2. Continue current dose of Entresto. After the left heart cath, depending on the results, then we will add Farxiga and spironolactone. After that, we will consider adding beta-trudy therapy. 3. Cardiac PYP scan and laboratory testing to rule out amyloidosis 4. Left heart cath scheduled for tomorrow to rule out any ischemic cardiomyopathy Assessment & Plan (11/03/2024 2:41 PM EDT): The patient has symptoms of exertional dyspnea and fatigue, as well as evidence of lower extremity edema and weight gain. His prior echocardiogram from 2021 showed a normal LVEF and a normal functioning bioprosthetic aortic valve. Given his symptoms, his primary care provider completed a BNP test which was noted to be elevated. As such, the patient likely has heart failure. He was recently started on furosemide 20 mg orally daily. However, despite the initiation of low-dose diuretic therapy, his weight gain has persisted and his lower extremity edema has persisted. On the physical examination today, the patient was found to have clear lungs but he did have evidence of pitting edema + 2 in the lower extremity bilaterally. At this point, we will increase his furosemide to 40 mg orally daily. Will also obtain laboratory testing today to reevaluate his renal function and serum electrolytes given the recent initiation of furosemide. Will also complete an echocardiogram JOHNY in order to reevaluate his cardiac function and the status of his bioprosthetic aortic valve. Orders: Transthoracic echocardiogram (TTE) complete with PRN contrast, bubble, strain, and 3D order panel; Future perflutren lipid microsphere (DEFINITY) 1.3 mL in sodium chloride 0.9% 8.7 mL injection Magnesium; Future furosemide (LASIX) 20 mg tablet; Take 2 tablets (40 mg total) by mouth 1 (one) time each day. Comprehensive metabolic panel; Future Hyperlipidemia 10/01/2022 Overview (06/26/2024): Last Assessment & Plan: Patient has history of hyperlipidemia as well as a history of CAD and carotid artery stenosis. He continues on atorvastatin as prescribed. Last fasting lipid panel showed acceptable cholesterol control. He will continue current therapies. Assessment & Plan (12/04/2024 6:01 PM EDT): The patient has a history of hyperlipidemia. He is on atorvastatin 10 mg daily daily. Will continue his current therapy. Assessment & Plan (11/03/2024 2:41 PM EDT): The patient has a history of hyperlipidemia. He is currently on atorvastatin 10 mg regular. Will continue his current therapy. Carotid disease, bilateral ([facility] V24) 022 Overview (06/26/2024): Last Assessment & Plan: Last carotid duplex 11/2023 showed less than 50% stenosis in the bilateral carotid arteries. He continues on aspirin and statin. Atrial fibrillation ([facility] V24, [facility]/HCC V28) 1 08/09/2020 Overview (06/26/2024): Last Assessment & Plan: Patient [...] have been reported. Will continue current therapies. Assessment & Plan (12/04/2024 6:01 PM EDT): The patient has a history of atrial fibrillation. Resting heart rate was noted to be adequate. Also, the patient has an increased [id number] score and continues on anticoagulation therapy with apixaban. No episodes of abnormal bleeding have been noted. Will continue current therapy. Orders: ECG 12 lead CAD (coronary artery disease) 06/08/2021 Overview (06/26/2024): Last Assessment & Plan: Patient has a history of coronary artery disease. He denies any anginal symptoms or episodes of chest pain. He continues on statin and aspirin as prescribed. Assessment & Plan (12/04/2024 6:01 PM EDT): The patient has a history of coronary artery disease. Currently, the patient denies any chest pain at rest or with exertion. He does refer symptoms of exertional dyspnea. The patient continues on secondary preventive therapy for CAD, including: aspirin, statin. Given evidence of reduced LVEF, we will proceed with a left heart cath to rule out any worsening of his ugashik CAD as a cause of his cardiomyopathy. Assessment & Plan (11/03/2024 2:41 PM EDT): The patient was found to have moderate coronary artery disease on his pre-TAVR left heart catheterization from 2020. The patient was evaluated by the cardiac surgery team as part of the pre-TAVR evaluation and his coronary artery disease was discussed. According to the notes, the patient declined open heart surgery (CABG/AVR) at that time. His coronary artery disease, which manage with medical therapy only. The patient has continued on medical therapy with aspirin 81 mg orally daily and atorvastatin 10 mg daily. On today's visit, the patient denies any symptoms of chest discomfort. He refers symptoms of exertional dyspnea in the setting of his weight gain and lower extremity edema. The symptoms are more suggestive of heart failure. Will increase the dose of his furosemide as detailed below. Will also order an echocardiogram to reevaluate his cardiac function and evaluate the status of his bioprosthetic aortic valve. Depending on the echocardiogram results, then we will determine if the patient needs to undergo an ischemic evaluation due to his symptoms of exertional dyspnea. 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 Assessment & Plan (12/04/2024 6:01 PM EDT): The patient has a history of a bioprosthetic aortic valve. Recent echocardiogram showed normal bioprosthetic aortic valve function. There was no evidence of bioprosthetic aortic valve stenosis or insufficiency. Assessment & Plan (11/03/2024 2:41 PM EDT): The patient has a history of aortic stenosis status post bioprosthetic aortic valve replacement in August [address] Roberson at [facility] via a TAVR technique. His last echocardiogram from 2021 showed a normal bioprosthetic valve function. On today's visit, the patient refers symptoms of exertional dyspnea, weight gain, and lower extremity edema. On the physical exam, there is only evidence of a minimal systolic murmur. As such, we will order a stat echocardiogram to reevaluate his bioprosthetic aortic valve function. Orders: Transthoracic echocardiogram (TTE) complete with PRN contrast, bubble, strain, and 3D order panel; Future perflutren lipid microsphere (DEFINITY) 1.3 mL in sodium chloride 0.9% 8.7 mL injection Encounters Date Type Department Care Team Description 12/04/2024 Telephone [facility] [address] [facility] [address] [place] [address] Anastacio Murrieta MD Results 11/30/2024 10:00 AM EDT Ancillary Procedure [facility] [address] [place] [address] HFrEF (heart failure with reduced ejection fraction) (CMS/HCC V24, CMS/HCC V28) 11/26/2024 10:50 AM EDT Office Visit [facility] [address] [place] [address] Anastacio Murrieta MD Atrial fibrillation, unspecified type (CMS/HCC V24, CMS/HCC V28) (Primary Dx); Coronary artery disease involving ugashik coronary artery of ugash[place] heart with angina pectoris (CMS/HCC V24); HFrEF (heart failure with reduced ejection fraction) (CMS/HCC V24, CMS/HCC V28); Pure hypercholesterolemia; History of aortic valve replacement with bioprosthetic valve; Chronic heart failure with preserved ejection fraction (CMS/HCC V24, CMS/HCC V28) 11/24/2024 Telephone [facility] [address] [place] [address] Anastacio Murrieta MD speak with Dr. Almanzar (Speak with Dr. Almanzar ) 11/11/2024 Telephone [facility] [address] [place] [address] Anastacio Murrieta MD Scheduling 11/11/2024 Telephone [facility] [address] [place] [address] Anastacio Murrieta MD 11/10/2024 Telephone [facility] [address] [place] [address] Anastacio Murrieta MD 11/09/2024 Telephone [facility] [address] [place] [address] Anastacio Murrieta MD 11/09/2024 Telephone [facility] [address] [facility] [facility] [address] [place] [address] Anastacio Murrieta MD 11/04/2024 2:30 PM EDT Ancillary Procedure [facility] [address] [place] [address] Coronary artery disease involving ugashik coronary artery of ugashik heart with angina pectoris (CMS/HCC V24); History of aortic valve replacement with bioprosthetic valve; Chronic heart failure with preserved ejection fraction (CMS/HCC V24, CMS/HCC V28) 11/03/2024 10:50 AM EDT Office Visit [facility] [address] [place] [address] Anastacio Murrieta MD Coronary artery disease involving ugashik coronary artery of ugash[place] heart with angina pectoris (CMS/HCC V24) (Primary Dx); History of aortic valve replacement with bioprosthetic valve; Pure hypercholesterolemia; Chronic heart failure with preserved ejection fraction (CMS/HCC V24, CMS/HCC V28) 11/02/2024 Telephone [facility] [address] [facility] [address] [place] [address] Anastacio Murrieta MD Lab work from Last 3 Months Surgical History Surgery Date Site/Laterality Comments HERNIA REPAIR PROCEDURE: HISTORICAL HERNIA REPAIR/ING APPENDECTOMY PROCEDURE: HISTORICAL APPENDECTOMY TONSILLECTOMY PROCEDURE: HISTORICAL TONSILLECTOMY ADENOIDECTOMY PROCEDURE: HISTORICAL ADENOIDECTOMY OTHER SURGICAL HISTORY PROCEDURE: RI UNLISTED PROCEDURE CARDIAC SURGERY FEMUR FRACTURE SURGERY Right PROCEDURE: RI OPEN TX FEMORAL FRACTURE DISTAL MED/LAT CONDYLE Medical History Medical History Date Comments BPH (benign prostatic hyperplasia) DX:BPH (benign prostatic hyperplasia) H/O degenerative disc disease DX :H/O degenerative disc disease Insomnia DX:Insomnia Osteoporosis DX:Osteoporosis Pulmonary nodule DX:Pulmonary no dule Social History Tobacco Use Types Packs/Day Years Used Date Smoking Tobacco: Former Cigarettes Q uit: 07/01/1985 Smokeless Tobacco: Former Alcohol Use Standard Drinks/Week Comments Not Currently 0 (1 standard drink = 0.6 oz pur e alcohol) Sex and Gender Information Value Date Recorded Sex Assigned at Not on file Legal Sex Male 4:23 PM EST Gender Identity Not on file Sexual Orientation Not on file Obstetrics History Last Filed Vital Signs Vital Sign Reading Time Taken Comments Blood Pressure 122/64 11/26/2024 10:45 AM EDT Pulse 73 11/26/2024 10:45 AM EDT Temperature - - Respiratory Rate - - Oxygen Saturation 95% 11/26/2024 10:45 AM EDT Inhaled Oxygen Concentration - - Weight 76.7 kg (169 lb) 11/30/2024 10:00 AM EDT Height 182.9 cm (6') 11/30/2024 10:00 AM EDT Body Mass Index 22.92 11/30/2024 10:00 AM EDT Plan of Treatment Upcoming Encounters Date Type Department Care Team (Late st Contact Info) Description 12/21/2024 2:00 PM EDT Office Visit [facility] [address] [place] [address] ManAnastacio Uriarte MD [address] [place] [address] [address] [place] [address] Health Maintenance Due Date Last Done Comments Zoster Vaccines (1 of 2) 1987 Cholesterol Screening (Lipid Panel) 05/30/2022 Depression Screening 05/30/2022 Falls Risk Assessment 05/30/2022 Medicare Annual Wellness Visit 05/30/2022 Social Influencers of Health Screening 05/30/2022 DTaP,Tdap,and Td Vaccines (2 - Td or Tdap) 08/04/2025 08/04/2015 Hypertension/CHF/CAD Annual BMP Blood Test 11/26/2025 11/26/2024, 11/03/2024 Pneumococcal Vaccine: 50+ Years Completed 03/31/2018, 06/29/2015 RSV Immunization Adult Patients Completed 05/16/2023 Influenza Vaccine Completed 04/02/2024, , 10/10/2022, Additional history exists COVID-19 Vaccine Completed 10/13/2024, 08/2023, 10/08/2023, Additional history exists HIB Vaccines Aged Out [...] age to complete this topic Meningococcal B Vaccine Aged Out No l onger eligible based on patient's age to complete this topic RSV Immunization Patients Under 20 months Aged Out No longer eligible based on patient's age to complete this topic Varicella Vaccines Aged Out No longer eligible based on patient's age to complete this topic Procedures Procedure Name Priority Date/Time Associated Diagnosis Comments NM CARDIAC AMYLOID STUDY W/ CT Routine 11/30/2024 2:04 PM EDT HFrEF (heart failure with reduced ejection fraction) (CMS/HCC V24, CMS/HCC V28) CBC WITH AUTO DIFFERENTIAL Routine 11/26/2024 12:06 PM EDT HFrEF (heart failure with reduced ejection fraction) (CMS/HCC V24, CMS/HCC V28) N-TERMINAL PROBNP Routine 11/26/2024 12: 06 PM EDT HFrEF (heart failure with reduced ejection fraction) (CMS/HCC V24, CMS/HCC V28) IMMUNOFIXATION ELECTROPHORESIS Routine 11/26/2024 12:06 PM EDT HFrEF (heart failure with reduced ejection fraction) (CMS/HCC V24, CMS/HCC V28) KAPPA-LAMBDA QUANTITATIVE FREE LIGHT CHAINS Routine 11/26/2024 12:06 PM EDT HFrEF (heart failure with reduced ejection fraction) (CMS/HCC V24, CMS/HCC V28) PROTHROMBIN TIME WITH INR Routine 11/26/2024 12:06 PM EDT HFrEF (heart failure with reduced ejection fraction) (CMS/HCC V24, CMS/HCC V28) CBC AND DIFFERENTIAL Routine 11/26/2024 12:06 PM EDT HFrEF (heart failure with reduced ejection fraction) (CMS/HCC V24, CMS/HCC V28) THYROID STIMULATING HORMONE Routine 11/26/2024 12:06 PM EDT HFrEF (heart failure with reduced ejection fraction) (CMS/HCC V24, CMS/HCC V28) COMPREHENSIVE METABOLIC PANEL Routine 11/26/2024 12:06 PM EDT HFrEF (heart failure with reduced ejection fraction) (CMS/HCC V24, CMS/HCC V28) ECG 12-LEAD Routine 11/26/2024 10:56 AM EDT Atrial fibrillation, unspecified type (CMS/HCC V24, CMS/HCC V28) TRANSTHORACIC ECHOCARDIOGRAM (TTE) COMPLETE STAT 11/04/2024 3:30 PM EDT Coronary artery disease involving ugashik coronary artery of ugashik heart with angina pectoris (CMS/HCC V24) History of aortic valve replacement with bioprosthetic valve Chronic heart failure with preserved ejection fraction (CMS/HCC V24, CMS/HCC V28) COMPREHENSIVE METABOLIC PANEL Routine 11/03/2024 12:04 PM EDT Chronic heart failure with preserved ejection fraction (CMS/HCC V24, CMS/HCC V28) MAGNESIUM Routine 11/03/2024 12:04 PM EDT Chronic heart failure with preserved ejection fraction (CMS/HCC V24, CMS/HCC V28) from Last 3 Months Results * NM CARDIAC AMYLOID STUDY W/ CT (11/30/2024 2:04 PM EDT) BSA 1.97 m2 CV PACS STRESS Target HR 113 bpm CV PACS STRESS Anatomical Region Laterality Modality Nuclear Medicine Narrative 11/30/2024 5:49 PM EDT [facility] [address] [id number] [address] TEL: FAX: Name: Bobby Sigala Date of exam: 11/30/24 : 1935 Gender: male Ordering provider: Dr. Conway TEST TYPE: 99mTechnetium-Pyrophosphate Cardiac Amyloidosis Performed by: Georgina Lo MD INDICATION: HFrEF PRIOR CARDIACTESTING: Echocardiogram TECHNIQUE: The patient was given an IV injection of 21 mCi of 99mTc-PYP. Three hours after injection they under went planar and SPECT/CT imaging. Planar imaging was done in the anterior and lateral position and 750,000 counts were obtained. FINDINGS: The overall image quality was good. Bone uptake was seen. No significant hot spots were seen. The H/CL ratio is 1.07. The visual scan of the images revealed absent uptake on SPECT/CT imaging. The semi-quantitative findings revealed Grade 0. CONCLUSIONS: The 99mTc-PYP revealed findings that are not suggestive of TTR amyliodosis. There is no myocardial uptake is seen on SPECT/CT and the visual score is 0 . The H/CL ratio is less than 1.3. Evaluation by serum free light chains and serum/urine immunofixation should be done in all patients as any degree of uptake can be seen in AL amyloid No uptake or equivocal results could represent AL amyloid or early ATTR cardiac amyloid Results should be interpreted in the context of prior evaluation and referral to teamcenter consultant or amyloid expert is recommended if either: A: the echo and/or CMR is strongly suggestive of cardiac amyloidosis and PYP is not or is equivocal (biopsy may be indicated) B: and/or free light chains are abnormal or equivocal Nuclear Study Quality Risk factors include: age greater than 40 and male. Time of first imaging occurred at 180 min. Overall image quality is excellent. Blood pool activity is normal. Imaging technique: planar and SPECT. Amyloidosis Study H/CL ratio is 1.07. us Anastacio Murrieta MD CV STRESS PROCEDURES F inal Result * (ABNORMAL) [place]-lambda free light chains, quantitative (11/26/2024 12:06 PM EDT) Pathologist [facility] Free [place] Lt Chains Serum 51.6(H) 3.3 - 19.4 mg/L [facility] 1 Free [place]ambda Lt Chains Serum 22.9 5.7 - 26.3 mg/L [facility] 1 [place]/Lambda Ratio,S 2.25(H) 0.26 - 1.65 [facility] 1 Blood Venous blood specimen / Unknown 11/26/2024 12:06 PM EDT 11/26/2024 Narrative [facility] 1 - 11/27/2024 7:07 PM EDT Performed at: - [facility] [address] [place], [place] [id number] Marketing Content Manager: Michaelle Martins MD, Phone: [phone] Anastacio Murrieta MD LAB BLOOD ORDERABLES F inal Result [facility] 1 * (ABNORMAL) N-Terminal Probnp (11/26/2024 12:06 PM EDT) [facility] NT-proBNP 5,626(H) 0 - 486 pg/mL [facility] 1 Comment: The following cut-points have been suggested for the use of proBNP for the diagnostic evaluation of heart failure (HF) in patients with acute dyspnea: Modality Age Optimal Cut (years) Point Diagnosis (rule in HF) <50 450 pg/mL 50 - 75 900 pg/mL >75 1800 pg/mL Exclusion (rule out HF) Age independent 300 pg/mL Blood Venous blood specimen / Unknown 11/26/2024 12:06 PM EDT 11/26/2024 Narrative [facility] 1 - 11/27/2024 10:07 AM EDT Performed at: - [facility] [address] [place], [place] [id number] Marketing Content Manager: Michaelle Martins MD, Phone: [phone] Anastacio Murrieta MD LAB BLOOD ORDERABLES F inal Result [facility] 1 * (ABNORMAL) CBC auto differential (11/26/2024 12:06 PM EDT) WBC 7.2 3.4 - 10.8 x10E3/uL [facility] 1 RBC 4.17 4.14 - 5.80 x10E6/uL [facility] 1 Hemoglobin 12.4(L) 13.0 - 17.7 g/dL [facility] 1 Hematocrit 38.4 37.5 - 51.0 % [facility] 1 MCV 92 79 - 97 fL [facility] 1 MCH 29.7 26.6 - 33.0 pg [facility] 1 MCHC 32.3 31.5 - 35.7 g/dL [facility] 1 RDW 14.2 11.6 - 15.4 % [facility] 1 Platelets 210 150 - 450 x10E3/uL [facility] 1 Neutrophils 82 Not Estab. % [facility] 1 Lymphocytes 10 Not Estab. % [facility] 1 Monocytes 6 Not Estab. % [facility] 1 Eosinophils 1 Not Estab. % [facility] 1 Basophils 1 Not Estab. % [facility] 1 Neutrophils Absolute 6.0 1.4 - 7.0 x10E3/uL [facility] 1 Lymphocytes Absolute 0.7 0.7 - 3.1 x10E3/uL [facility] 1 Monocytes Absolute 0.4 0.1 - 0.9 x10E3/uL [facility] 1 Eosinophils Absolute 0.1 0.0 - 0.4 x10E3/uL [facility] 1 Basophils Absolute 0.1 0.0 - 0.2 x10E3/uL [facility] 1 Immature Granulocytes Relative 0 Not Estab. % [facility] 1 Immature Grans (Abs) 0.0 0.0 - 0.1 x10E3/uL [facility] 1 Blood Venous blood specimen / Unknown 11/26/2024 12:06 PM EDT 11/26/2024 Narrative [facility] 1 - 11/27/2024 7:06 AM EDT Performed at: [facility] [id number] Marketing Content Manager: Michaelle Martins MD, Phone: [phone] Anastacio Murrieta MD LAB BLOOD ORDERABLES F inal Result Performing Organization Address [facility] de Phone Number [facility] 1 * (ABNORMAL) Prothrombin time with INR (11/26/2024 12:06 PM EDT) [facility] Normalized Ratio (INR) 1.3(H) 0.9 - 1.2 [facility] 1 Comment: Reference interval is for non-anticoagulated patients. Suggested INR therapeutic range for Vitamin K antagonist therapy: Standard Dose (moderate intensity therapeutic range): 2.0 - 3.0 Higher intensity therapeutic range 2.5 - 3.5 Prothrombin Time 13.7(H) 9.1 - 12.0 sec [facility] 1 Blood Venous blood specimen / Unknown 11/26/2024 12:06 PM EDT 11/26/2024 Narrative [facility] 1 - 11/27/2024 4:06 AM EDT Performed at: [facility] [address] [id number] Marketing Content Manager: Michaelle Martins MD, Phone: [phone] Anastacio Murrieta MD LAB BLOOD ORDERABLES F inal Result Performing Organization Address [facility] de Phone Number [facility] 1 * (ABNORMAL) Immunofixation electrophoresis serum (11/26/2024 12:06 PM EDT) [facility] Immunofixation Result, Serum Comment(A ) [facility] 1 Comment:Polyclonal increase detected in one or more immunoglobulins. Immunoglobulin G, Qn, Serum 1,789(H) 603 - 1,613 mg/dL [facility] 1 Immunoglobulin A, Qn, Serum 391 61 - 437 mg/dL [facility] 1 Immunoglobulin M, Qn, Serum 81 15 - 143 mg/dL [facility] 1 Blood Venous blood specimen / Unknown 11/26/2024 12:06 PM EDT 11/26/2024 Narrative [facility] 1 - 11/27/2024 6:07 PM EDT Performed at: - [address] [id number] Marketing Content Manager: Michaelle Martins MD, Phone: [phone] Anastacio Murrieta MD LAB BLOOD ORDERABLES F inal Result Performing Organization Address [facility] de Phone Number [facility] 1 * Thyroid stimulating hormone (11/26/2024 12:06 PM EDT) [facility] TSH 4.430 0.450 - 4.500 uIU/mL [facility] 1 Blood Venous blood specimen / Unknown 11/26/2024 12:06 PM EDT 11/26/2024 Narrative [facility] 1 - 11/27/2024 4:06 AM EDT Performed at: [address] [id number] Marketing Content Manager: Michaelle Martins MD, Phone: [phone] Anastacio Murrieta MD LAB BLOOD ORDERABLES F inal Result Performing Organization Address [facility] de Phone Number [facility] 1 * Comprehensive metabolic panel (11/26/2024 12:06 PM EDT) Only the most recent of2 resultswithin the time period is included. [facility] Glucose 94 70 - 99 mg/dL [facility] 1 Blood Urea Nitrogen (BUN) 23 8 - 27 mg/dL [facility] 1 Creatinine 0.96 0.76 - 1.27 mg/dL [facility] 1 eGFR 77 >59 mL/min/1. 73 [facility] 1 BUN/Creatinine Ratio 24 10 - 24 [facility] 1 Sodium 144 134 - 144 mmol/L [facility] 1 Potassium 4.3 3.5 - 5.2 mmol/L [facility] 1 Chloride 106 96 - 106 mmol/L [facility] 1 Carbon Dioxide 22 20 - 29 mmol/L [facility] 1 Calcium 8.9 8.6 - 10.2 mg/dL [facility] 1 Protein Total 7.1 6.0 - 8.5 g/dL [facility] 1 Albumin 4.0 3.7 - 4.7 g/dL [facility] 1 Globulin Total 3.1 1.5 - 4.5 g/dL [facility] 1 Bilirubin Total 0.3 0.0 - 1.2 mg/dL [facility] 1 Alkaline Phosphatase 61 44 - 121 IU/L [facility] 1 Aspartate aminotransferase (AST) 20 0 - 40 IU/L [facility] 1 Alanine Aminotransferase (ALT) 14 0 - 44 IU/L [facility] 1 Blood Venous blood specimen / Unknown 11/26/2024 12:06 PM EDT 11/26/2024 Narrative [facility] 1 - 11/27/2024 4:06 AM EDT Performed at: 01 - [facility] [address] [id number] Marketing Content Manager: Michaelle Martins MD, Phone: [phone] us Anastacio Murrieta MD LAB BLOOD ORDERABLES F inal Result Performing Organization Address [facility] Co de Phone Number [facility] 1 * ECG 12 lead (11/26/2024 10:56 AM EDT) Ventricular Rate ECG 73 BPM GEMUSE Atrial Rate 122 BPM GEMUSE QRS Duration 110 ms GEMUSE Q-T Interval 384 ms GEMUSE QTc 423 ms GEMUSE R Cotter -82 degrees GEMUSE T Cotter 46 degrees GEMUSE ECG Interpretation Atrial fibrillation Left axis deviation Anterior infarct , age undetermined Possible Lateral infarct , age undetermined Inferior infarct , age undetermined Abnormal ECG Confirmed by ANASTACIO MURRIETA ([id number]) on 12/04/2024 5:56:59 PM GEMUSE 11/26/2024 10:5 6 AM EDT 12/04/2024 5:56 PM EDT us Anastacio Murrieta MD ECG ORDERABLES Final Result Performing Organization Address City/[facility]/ZIP Co de Phone Number [facility] * (ABNORMAL) TRANSTHORACIC ECHOCARDIOGRAM (TTE) COMPLETE (11/04/2024 3:30 PM EDT) LV EDV (A2C) 139 mL CV PACS LV EDV (A4C) 125 mL CV PACS LV Diastolic Volume (BP) 131 62 - 150 mL CV PACS LV ESV (A2C) 93 mL CV PACS LV ESV (A4C) 83 mL CV PACS LV Systolic Volume (BP) 89(A) 21 - 61 mL CV PACS IVSD 1.1(A) 0.6 - 1.0 cm CV PACS LVIDD 5.3 4.2 - 5.8 cm CV PACS LVIDS 4.7(A) 2.5 - 4.0 cm CV PACS LVOT Mean Grad 1 mmHg CV PACS LVOT Peak VTI 12.5 cm CV PACS LVOT Mean Nick 0.5 m/s CV PACS LVOT Peak Nick 0.7 m/s CV PACS LVOT Peak Gradient 2 mmHg CV PACS LVPWD 1.0 0.6 - 1.0 cm CV PACS Ejection Fraction (A2C) 33 % CV PACS Ejection Fraction (A4C) 33 % CV PACS Ejection Fraction (BP) 32 % CV PACS Left Atrium Minor Cotter 5.8 cm CV PACS Left Atrium Major Cotter 5.5 cm CV PACS LA Area Sys (A2C) 29 cm2 CV PACS LA Area Sys (A4C) 24 cm2 CV PACS LA Volume (BP) 99 mL CV PACS AV Mean Gradient 6 mmHg CV PACS Ao VTI 28.7 cm CV PACS AV Peak Nick 1.8 m/s CV PACS AV Peak Gradient 13 mmHg CV PACS Ascending Aorta 2.4 cm CV PACS MV Mean Gradient 4 mmHg CV PACS MV VTI 32.2 cm CV PACS Mitral Valve Max Velocity 1.7 m/s CV PACS MV Peak Gradient 11 mmHg CV PACS PV Acceleration Time 58 ms CV PACS RV Diastolic Basal Dimension 3.8 2.5 - 4.1 cm CV PACS TAPSE 18 mm CV PACS TR Peak Velocity 3.31 m/s CV PACS TR Peak Gradient 44 mmHg CV PACS Relative Wall Thickness ratio 0.38 CV PACS LVOT:AV VTI Index 0.44 CV PACS FS 11 % CV PACS LV Mass 2D 214 g CV PACS MV VTI:LVOT VTI ratio 2.6 CV PACS AV Velocity Ratio 0.39 CV PACS BSA 2.01 m2 CV PACS LV Diastolic Volume Index (BP) 65 34 - 74 mL/m2 CV PACS LV Systolic Volume Index (BP) 44(A) 11 - 31 mL/m2 CV PACS LV EDV Index (A4C) 62 mL/m2 CV PACS LV ESV Index (A4C) 41 mL/m2 CV PACS LV EDV Index (A2C) 69 mL/m2 CV PACS LV ESV Index (A2C) 46 mL/m2 CV PACS LA Volume Index (BP) 49 mL/m2 CV PACS LVIDD Index 2.62 cm/m2 CV PACS LVIDS Index 2.33 cm/m2 CV PACS LV Mass Index 2D 106(A) 50 - 102 g/m2 CV PACS Ascending Aorta Index 1.19 cm/m2 CV PACS Right Ventricular Peak Systolic Pressure 52 mmHg CV PACS Est. RA Pressure 8 mmHg CV PACS AV Acceleration Time 96 ms CV PACS Anatomical Region Laterality Modality Ultrasound Narrative 11/09/2024 5:15 PM EDT Left Ventricle: Systolic function is moderately decreased. The quantitative EF by 2D Weber biplane is 32%. There is global hypokinesis of the left ventricle that is more pronounced in the inferoseptal wall. Left ventricle mild hypertrophy. Right Ventricle: Right ventricle cavity appears normal. Systolic function is normal. Normal TAPSE (> 17 mm). Aortic Valve: There is a 26 mm TAVR bioprosthetic valve. No evidence of bioprosthetic aortic valve insufficiency. No evidence of bioprosthetic aortic valve stenosis. No significant changes in the bioprosthetic aortic valve gradients when compared to the prior echocardiogram from August 2021. Mitral Valve: There is mild-moderate regurgitation. There is mild stenosis. Tricuspid Valve: There is mild-moderate regurgitation. There is evidence of moderate pulmonary hypertension. Left Ventricle Left ventricle cavity size is normal. There is mild hypertrophy. Systolic function is moderately decreased. The quantitative EF by 2D Weber biplane is 32%. There is evidence of global hypokinesis more pronounced in the inferoseptal wall. Unable to assess diastolic function. Right Ventricle Right ventricle cavity appears normal. Systolic function is normal. Normal TAPSE (> 17 mm). Left Atrium Left atrium cavity is severely dilated. Right Atrium Right atrium cavity is mildly dilated. There is a prominent Eustachian valve. IVC/SVC RA pressures is estimated to be 8 mmHg (IVC diameter <21 mm and decreases <50% during inspiration). Mitral Valve The leaflets are moderately thickened. There is moderate annular calcification. There is calcification of the anterior leaflet subvalvular apparatus. There is calcification of the posterior leaflet subvalvular apparatus. There is mild m oderate regurgitation. There is mild stenosis. MV mean gradient is 4 mmHg. Tricuspid Valve The leaflets exhibit normal excursion. There is mild m oderate regurgitation. There is no evidence of tricuspid valve stenosis. The right ventricular systolic pressure is moderately elevated. Aortic Valve The valve has been surgically replaced. There is a 26 mm TAVR bioprosthetic valve. The bioprosthetic aortic valve is well-seated. No evidence of bioprosthetic aortic valve insufficiency. No evidence of bioprosthetic aortic valve stenosis. Pulmonic Valve The pulmonic valve was not well visualized. No significant pulmonic valve regurgitation. No significant pulmonary valve stenosis noted. Ascending Aorta The aorta appears normal in size. Pericardium Pericardium appears normal. There is no pericardial effusion. Study Details Overall the study quality was technically difficult. The underlying ECG rhythm was atrial fibrillation. Unable to administer contrast. Anastacio Murrieta MD CV ECHO PROCEDURES [facility] Result * Magnesium (11/03/2024 12:04 PM EDT) Magnesium 1.9 1.6 - 2.3 mg/dL [facility] 1 Blood Venous blood specimen / Unknown 11/03/2024 12:04 PM EDT 11/03/2024 Narrative [facility] 1 - 11/04/2024 8:07 AM EDT Performed at: 01 - [facility] [address] [id number] Marketing Content Manager: Michaelle Martins MD, Phone: [phone] Anastacio Murrieta MD LAB BLOOD ORDERABLES F inal Result [facility] 1 from Last 3 Months Insurance MEDICARE [facility] Care Teams Residential Living Assistant Relationship Specialty Start Date End Date Esteban Salgado MD [address] [place] [address] [address] [facility] [place] [address] PCP - General Internal Medicine 06/01/20
== END 2024-12-17 11:34 | disposition home or self-care (01) ==
PROVIDERS: PCP Internal Medicine; Visit Provider Internal Medicine
DX: Z95.2 Presence of prosthetic heart valve (principal); I48.0 Paroxysmal atrial fibrillation; M25.569 Pain in unspecified knee; M25.561 Pain in right knee; M25.562 Pain in left knee

== ENCOUNTER → 2024-12-17 10:22 | Outpatient (BNVA) | payer MEDICARE, SELFPAY | PROVIDERS: PCP Internal Medicine; Visit Provider Internal Medicine | DX: Z95.2 Presence of prosthetic heart valve (principal); I48.0 Paroxysmal atrial fibrillation; M25.561 Pain in right knee; M25.562 Pain in left knee | CPT/HCPCS: 99212 ==

== ENCOUNTER 2024-12-21 15:41 | Emergency (ER) | payer MEDICARE, SELFPAY ==
--- NOTE | 2024-12-21 15:46 | ED.WOUNDLAC ---
HPI - Wound/Laceration General Chief Complaint: Wound/Laceration Stated Complaint: left index finger laceration Time Seen by Provider: 12/21/24 21:52 Source: patient, RN notes reviewed and old records reviewed Mode of arrival: ambulatory Limitations: no limitations History of Present Illness ED Provider: Christian HPI narrative: 89-year-old male presents for evaluation of a laceration to his left index finger. The patient is on Eliquis for a history of AFib. He reports around 11:00 a.m. he was cutting bread with a knife and cut his finger he does not know when his last tetanus shot was the Related Data Home Medications ?Medication ?Instructions ?Recorded ?Confirmed acetaminophen 500 mg tablet 1,000 mg PO Q6H PRN 09/01/20 12/17/24 (Tylenol Extra Strength) ascorbate calcium (vitamin C) 500 500 mg PO DAILY 09/01/20 12/17/24 mg tablet multivitamin 1 tab PO DAILY 09/01/20 12/17/24 apixaban 5 mg tablet (Eliquis) 5 mg PO BID 10/03/20 12/17/24 atorvastatin 10 mg tablet 10 mg PO DAILY 01/11/23 12/17/24 vitamins A,C,B-xmgr-mdxxdh 4,296 1 cap PO BID 02/25/24 12/17/24 mcg-226 mg-90 mg capsule (PreserVision AREDS) aspirin 81 mg chewable tablet 81 mg PO DAILY 06/03/24 12/17/24 melatonin 5 mg capsule 10 mg PO BEDTIME 08/18/24 12/17/24 Previous Rx's ?Medication ?Instructions ?Recorded cholecalciferol (vitamin D3) 50 50 mcg PO DAILY 90 days #90 caps 06/26/24 mcg (2,000 unit) capsule comp.stocking,knee,long,medium #12 ea 10/19/24 trazodone 150 mg tablet 150 mg PO BEDTIME #90 tabs 10/19/24 furosemide 20 mg tablet 20 mg PO DAILY #30 tabs 10/25/24 terazosin 5 mg capsule 5 mg PO DAILY #90 caps 11/11/24 diclofenac sodium 1 % topical gel 4 g topical QID #100 grams 12/10/24 (Voltaren Arthritis Pain) Allergies Allergy/AdvReac Type Severity Reaction Status Date / Time No Known Allergies Allergy Verified 12/21/24 15:49 Review of Systems Integumentary/Breasts: Skin/Breast: Reports wounds PMFSH Past Medical History Medical History (Updated 12/21/24 @ 22:39 by Zack Gonzales) Acute purpuric eruption Abrasion, leg w/o infection Visit for suture removal Right leg swelling Blood pressure elevated without history of HTN Femoral artery pseudo-aneurysm, left Exposure to COVID-19 virus Pulmonary nodule Degenerative disc disease Severe aortic stenosis Left carotid stenosis Insomnia BPH (benign prostatic hyperplasia) Osteoporosis Surgical History S/P TAVR (transcatheter aortic valve replacement) History of appendectomy History of tonsillectomy and adenoidectomy H/O right inguinal hernia repair Trochanteric fracture of right femur Family History Family History Father No problems noted. Mother No problems noted. Sister In good health Social History Social History Housing: House Alcohol intake: current Alcohol intake frequency: holidays/special occasions only Patient Tobacco Use Status: Never used Tobacco Tobacco use type: Cigarette e-Cigarette/Vaping Use: Never Used Second Hand Smoke Exposure: No Advance Directives: No Advance Directives Information Provided: Yes service: No Current occupational status: retired Cognitive needs: No Hearing needs: No Vision needs: Yes Physical Exam Vital Signs: Vital Signs: Last Vital Signs Temp 97.9 F 12/21/24 22:56 Pulse 76 12/21/24 22:56 Resp 18 12/21/24 22:56 BP 116/60 12/21/24 22:56 Pulse Ox 95 12/21/24 22:56 O2 Del Method Room Air 12/21/24 22:56 BMI result Body Mass Index 23.7 Skin: Other: there is a 0.5 cm curvilinear flap-like laceration to the radial side of the left index finger. it is oozing a small amount of blood Course Course Course Narrative: This is an RME: Additional HPI, ROS, PE not included below will be deferred to primary provider. RME assessment and note performed by: oNy Tanner PA-C This is a 89-itol-rcq-male, with a hx of BPH, proxysmal a fib on eliquis, who presents to the ER with complaints of left index finger laceration which occurred at 11AM. he accidentally cut his finger on frozen bread. 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 1cm laceration noted with active bleeding. Needing suture repair. Need updated tdap Plan: Wound repair, update tdap Medications Administered Discontinued Medications Generic Name Dose Route Start Last Admin Trade Name Fredavid PRN Reason Stop Dose Admin Diphtheria/Tetanus/Acell Pertussis 0.5 ml 12/21/24 15:47 12/21/24 21:49 Diphth,Pertus(Acell),Tet Adult 0.5 Ml Syringe IM 12/21/24 15:48 0.5 ml .ONCE ONE Administration Medical Decision Making Medical Decision Making MDM Narrative: 89-year-old male presents for evaluation of a laceration to his left index finger. It is a very small flap-like laceration. Discussed possible sutures versus skin glue. It is not over a joint, very small, I was able to stop the bleeding and apply 2 coats of Dermabond with good hemostasis. The patient waited for 30 minutes after the procedure and there was no further bleeding, he was discharged. Tetanus was updated Differential Diagnosis Differential Diagnoses: The differential diagnosis associated with the presentation includes laceration Skin tear Puncture wound Coagulopathy Discharge Plan Discharge Clinical Impression: Laceration of left index finger Patient Disposition: Home, Self-Care Instructions: Finger Laceration (ED) Additional Instructions: your wound was cleaned and closed with Dermabond skin glue keep the area clean and dry for the next 24 hours the glue will then keep the area water proof the glue should resolve on its own in about 1 week Prescriptions: No Action cholecalciferol (vitamin D3) 50 mcg (2,000 unit) capsule 50 mcg PO DAILY 90 Days Qty: 90 3RF (DME) comp.stocking,knee,long,medium Misc See Rx Instructions .Route Qty: 12 0RF Rx Instructions: As directed 20-30 mm HG trazodone 150 mg tablet 150 mg PO BEDTIME Qty: 90 3RF furosemide 20 mg tablet 20 mg PO DAILY Qty: 30 1RF terazosin 5 mg capsule 5 mg PO DAILY Qty: 90 3RF diclofenac sodium [Voltaren Arthritis Pain] 1 % gel 4 g topical QID Qty: 100 2RF Rx Instructions: apply to single knee, ankle, foot; for foot includes sole/toes/top of foot Eliquis 5 mg tablet 5 mg PO BID multivitamin Tablet 1 tab PO DAILY acetaminophen [Tylenol Extra Strength] 500 mg tablet 1,000 mg PO Q6H PRN ascorbate calcium (vitamin C) 500 mg tablet 500 mg PO DAILY atorvastatin 10 mg tablet 10 mg PO DAILY PreserVision AREDS 4,296 mcg-226 mg-90 mg capsule 1 cap PO BID aspirin 81 mg tablet,chewable 81 mg PO DAILY melatonin 5 mg capsule 10 mg PO BEDTIME Interventions: ED Discharge Assessment Last Done: 12/21/24 22:56 Discharge Date/Time: 12/21/24 22:56 Print Language: Yakut
[2024-12-21 15:47] VITALS: BP 114/63; PULSE 86; RESP 18; TEMP 36.4; O2SAT 95; BMI 23.7
--- NOTE | 2024-12-21 20:19 | PC.NURSE ---
pt to triage room requesting an update on the length of time he will have to remain in the waiting room. RN attempted to explain the process and what occurs in the back that would cause a longer wait time to which he stated I don't understand the logistics I just want to know when I'm going in the back, my hand is throbbing and I need to be seen now! . This RN apologized for the inconvenience attmepted to reassure the patient that staff were working deligently to get patients moved upstairs and others placed in the back for treatment. Tylenol offered but declined and pt advised to keep hand elevated/upright vs dependent to assist with pain to which he replied i've been doing that and it's not working . Pt's dressing remains clean and intact and he is well appearing otherwise.
[2024-12-21] MEDS: Diphth,Pertus(ACell),Tet Adult 0.5 ML SYRINGE IM (21:49)
[2024-12-21 22:00] VITALS: BP 116/60; PULSE 76; RESP 18; TEMP 36.6; O2SAT 95
--- OUTSIDE RECORDS SUMMARY | 2024-12-21 22:04 | XMS_ITS | Clinical Summary ---
Author Organization [facility] Address [address] [place] [address] Phone Care Team Providers Care Rfid Technician Name Role Phone Esteban Salgado MD Primary Care Provider [phone] Allergies No known active allergies Medications Eliquis [...] mg by mouth daily. 12/31/19 19 Active cholecalciferol (VITAMIN D-3) 50 mcg (2,000 unit) tablet Take 1 Tablet by mouth daily. Active diphenhydrAMINE (BENADRYL) 25 mg tablet 2 tablets daily at bedtime 12/31/19 19 Active docusate sodium (COLACE) 50 mg capsule Take 50 mg by mouth daily. Active melatonin 3 mg tablet extended release Take 3 mg by mouth at bedtime. 12/31/19 19 Active FA/mv,Ca,iron,m in/lycopene/lut (MULTIVITAL ORAL) 1 Tablet daily. 12/31/19 19 Active vit C/E/Zn/coppr/margarita tein/zeaxan (PRESERVISION AREDS-2 ORAL) Take 1 Tablet by mouth 2 times daily. Active terazosin (HYTRIN) 5 mg capsule Take 5 mg by mouth daily. 12/31/19 Active traZODone (DESYREL) 150 mg tablet Take 1 Tablet by mouth at bedtime. 12/31/19 19 Active multivitamin tablet Take 1 tablet by mouth 1 (one) time each day. Active aspirin 81 mg EC tablet Take 1 tablet (81 mg total) by mouth 1 (one) time each day. Active sacubitriL-vals lauren (Entresto) 24-26 mg per tabletIndicatio ns:HFrEF (heart failure with reduced ejection fraction) (CMS/HCC V24, CMS/HCC V28) Take 1 tablet by mouth 2 (two) times a day. 180 each 3 11/12/19 25 026 Active furosemide (LASIX) 20 mg tabletIndicatio ns:Chronic heart failure with preserved ejection fraction (CMS/HCC V24, CMS/HCC V28) Take 1 tablet (20 mg total) by mouth 1 (one) time each day. 11/27/19 25 Active atorvastatin (LIPITOR) 10 mg tablet TAKE ONE TABLET BY MOUTH EVERY DAY 90 tablet 3 12/04/19 25 Active glucosamine sulfate 500 mg tablet Take 1 tablet (500 mg total) by mouth 1 (one) time each day. Active dapagliflozin propanediol (FARXIGA) 10 mg tabletIndicatio ns:HFrEF (heart failure with reduced ejection fraction) (CMS/HCC V24, CMS/HCC V28) Take 1 tablet (10 mg total) by mouth 1 (one) time each day. 90 each 3 12/22/19 25 026 Active spironolactone (ALDACTONE) 25 mg tabletIndicatio ns:HFrEF (heart failure with reduced ejection fraction) (CMS/HCC V24, CMS/HCC V28) Take 1 tablet (25 mg total) by mouth 1 (one) time each day. 90 each 3 12/22/19 25 026 Active atorvastatin (LIPITOR) 10 mg tablet Take 1 Tablet by mouth daily for 360 days. 11/27/19 24 025 Discontinued(Du plicate order) furosemide (LASIX) 20 mg tabletIndicatio ns:Chronic heart failure with preserved ejection fraction (CMS/HCC [...] Active Problems Problem Noted Date Diagnosed Date MGUS (monoclonal gammopathy of unknown significa nce) 12/21/2024 Assessment & Plan (12/21/2024 2:28 PM EDT): HFrEF (heart failure with re duced ejection fraction) ([facility] V24, [facility] V28) 11/03/2024 Assessment & Plan (12/21/2024 2:28 PM EDT): Orders: dapagliflozin propanediol (FARXIGA) 10 mg tablet; Take 1 tablet (10 mg total) by mouth 1 (one) time each day. spironolactone (ALDACTONE) 25 mg tablet; Take 1 tablet (25 mg total) by mouth 1 (one) time each day. Comprehensive metabolic panel; Future Assessment & Plan (12/04/2024 6:01 PM EDT): [...] taking the medication Candidate for ICD or WORKFORCE CONSULTANT: Not a candidate at this point given [...] will continue current therapies. Assessment & Plan (12/21/2024 2:28 PM EDT): Assessment & Plan (12/04/2024 6:01 PM EDT): The patient has a history of hyperlipidemia. He is on atorvastatin 10 mg daily daily. Will continue his current therapy. Assessment & Plan (11/03/2024 2:41 PM EDT): The patient has a history of hyperlipidemia. He is currently on atorvastatin 10 mg regular. Will continue his current therapy. Carotid disease, bilateral (CMS/HCC V24) 022 Overview (06/26/2024): Last Assessment & Plan: Last carotid duplex 11/2023 showed less than 50% stenosis in the bilateral carotid arteries. He continues on aspirin and statin. Assessment & Plan (12/21/2024 2:28 PM EDT): Atrial fibrillation (CMS/HCC V24, CMS/HCC V28) 1 08/09/2020 Overview (06/26/2024): Last Assessment [...] Will continue current therapies. Assessment & Plan (12/21/2024 2:28 PM EDT): Assessment & Plan (12/04/2024 6:01 PM EDT): The patient has a history of atrial fibrillation. Resting heart rate was noted to be adequate. Also, the patient has an increased [id number] score and continues on anticoagulation therapy with [...] and aspirin as prescribed. 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 [...] valve 08/25/2020 Overview (06/26/2024): TAVR done at [facility] on 09/19/2020 Last Assessment & Plan: He [...] keepThis to a Minimum. Assessment & Plan (12/21/2024 2:28 PM EDT): Assessment & Plan (12/04/2024 6:01 PM EDT): [...] in August [address] Roberson at [facility] via a TAVR technique. 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; Longstanding persistent atrial fibrillation (CMS/HCC V24, CMS/HCC V28); Bilateral carotid artery stenosis 12/04/2024 Telephone [facility] [address] [place] [address] Anastacio Long MD Results 11/30/2024 10:00 AM EDT Ancillary Procedure [facility] [address] [place] [id number] HFrEF (heart failure with reduced ejection fraction) (CMS/HCC V24, CMS/HCC V28) 11/26/2024 10:50 AM EDT Office Visit [facility] [address] [place] [address] Anastacio Long MD Atrial fibrillation, unspecified type (CMS/HCC V24, CMS/HCC V28) (Primary Dx); 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 Almanzar (Speak with Dr. Almanzar ) 11/11/2024 Telephone [facility] [address] [place] [address] Anastacio Long MD Scheduling 11/11/2024 Telephone [facility] [address] [place] [address] Anastacio Long MD 11/10/2024 Telephone [facility] [address] [place] [address] Anastacio Long MD 11/09/2024 Telephone [facility] [address] [place] [address] Anastacio Long MD 11/09/2024 Telephone [facility] [address] [place] [address] Anastacio Long MD 11/04/2024 2:30 PM EDT Ancillary Procedure [facility] [address] [place] [address] 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 (CMS/HCC V24); History of aortic valve replacement with bioprosthetic valve; Chronic heart failure with preserved ejection fraction (CMS/HCC V24, CMS/HCC V28) 11/03/2024 10:50 AM EDT Office Visit [facility] [address] [place] [address] Anastacio Long MD 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 (CMS/HCC V24) (Primary Dx); History of aortic valve replacement with bioprosthetic valve; Pure hypercholesterolemia; Chronic heart failure with preserved ejection fraction (CMS/HCC V24, CMS/HCC V28) 11/02/2024 Telephone [facility] [address] [place] [address] Anastacio Long MD Lab work from Last 3 Months Surgical History Surgery Date Site/Laterality Comments HERNIA REPAIR PROCEDURE: HISTORICAL HERNIA REPAIR/ING APPENDECTOMY PROCEDURE: HISTORICAL APPENDECTOMY TONSILLECTOMY PROCEDURE: HISTORICAL TONSILLECTOMY ADENOIDECTOMY PROCEDURE: HISTORICAL ADENOIDECTOMY OTHER SURGICAL HISTORY PROCEDURE: MN UNLISTED PROCEDURE CARDIAC SURGERY FEMUR FRACTURE SURGERY Right PROCEDURE: MN OPEN TX FEMORAL FRACTURE DISTAL MED/LAT CONDYLE CARDIAC CATHETERIZATION DONE ON 09/27/2024 AT [facility] W KM INDICATIONS: Dyspnea with exertion. Medical History Medical History Date Comments BPH [...] Sign Reading Time Taken Comments Blood Pressure 110/60 12/21/2024 1:25 PM EDT Pulse 89 12/21/2024 1:25 PM EDT Temperature - - Respiratory Rate - - Oxygen Saturation 96% 12/21/2024 1:25 PM EDT Inhaled Oxygen Concentration - - Weight 75.8 kg (167 lb) 12/21/2024 1:25 PM EDT Height 175.3 cm (5' 9 ) 12/21/2024 1:25 PM EDT Body Mass Index 24.66 12/21/2024 1:25 PM EDT Plan of Treatment Health Maintenance Due Date Last Done Comments Zoster Vaccines (1 of 2) 1954 Cholesterol Screening (Lipid Panel) 05/30/2022 Depression Screening [...] 3:30 PM EDT 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 [id number], [place] [address] TEL: FAX: Name: Bobby Reeder Date of exam: 11/30/24 : 1935 Gender: [...] context of prior evaluation and referral to seasonal warehouse associate or amyloid expert is recommended if either: [...] SPECT. Amyloidosis Study H/CL ratio is 1.07. Anastacio Long MD CV STRESS PROCEDURES F inal Result * (ABNORMAL) [place]-lambda free light chains, quantitative (11/26/2024 12:06 PM EDT) Free [place] Lt Chains Serum 51.6(H) 3.3 - 19.4 mg/L [facility] 1 Free Lambda Lt Chains Serum 22.9 5.7 - 26.3 mg/L [facility] 1 [place]/Lambda Ratio,S 2.25(H) 0.26 - 1.65 [facility] 1 Blood Venous blood specimen / Unknown 11/26/2024 12:06 PM EDT 11/26/2024 Narrative [facility] 1 - 11/27/2024 7:07 PM EDT Performed at: [address] [id number] Fire Pot Operator: Michaelle Martins MD, Phone: [phone] Anastacio Long MD LAB BLOOD ORDERABLES F inal Result [facility] 1 * (ABNORMAL) N-Terminal Probnp (11/26/2024 12:06 PM EDT) Pathologist [facility] NT-proBNP 5,626(H) 0 - 486 pg/mL [facility] [...] - 11/27/2024 10:07 AM EDT Performed at: 01 - [facility] [address] [id number] Fire Pot Operator: Michaelle Martins MD, Phone: [phone] Anastacio Long MD LAB BLOOD ORDERABLES F inal Result [...] - 11/27/2024 7:06 AM EDT Performed at: [address] [id number] Fire Pot Operator: Michaelle Martins MD, Phone: [phone] Anastacio Long MD LAB BLOOD ORDERABLES F inal Result Performing Organization Address [facility] de Phone Number [facility] * (ABNORMAL) Prothrombin time with INR (11/26/2024 12:06 PM EDT) [facility] International Normalized Ratio (INR) 1.3(H) 0.9 - [...] - 11/27/2024 4:06 AM EDT Performed at: [address] [place] [id number] Fire Pot Operator: Michaelle Martins MD, Phone: [phone] Anastacio Long MD LAB BLOOD ORDERABLES F inal Result Performing Organization Address [facility] de Phone Number [facility] * (ABNORMAL) Immunofixation electrophoresis serum (11/26/2024 12:06 PM EDT) [facility] Immunofixation Result, Serum Comment(A ) [facility] 1 [...] - 11/27/2024 6:07 PM EDT Performed at: [address] [id number] Fire Pot Operator: Michaelle Martins MD, Phone: [phone] Anastacio Long MD LAB BLOOD ORDERABLES F inal Result Performing Organization Address [facility] Co de Phone Number [facility] 1 * Thyroid stimulating hormone (11/26/2024 12:06 PM EDT) Pathologist [facility] TSH 4.430 0.450 - 4.500 uIU/mL [facility] 1 Blood Venous blood specimen / Unknown 11/26/2024 12:06 PM EDT 11/26/2024 Narrative [facility] 1 - 11/27/2024 4:06 AM EDT Performed at: [address] [id number] Fire Pot Operator: Michaelle Martins MD, Phone: [phone] Anastacio Long MD LAB BLOOD ORDERABLES F inal Result Performing Organization Address [facility] de Phone Number [facility] 1 * Comprehensive metabolic panel (11/26/2024 12:06 PM EDT) Only the most recent of2 resultswithin the time period is included. Glucose 94 70 - 99 mg/dL [facility] [...] - 11/27/2024 4:06 AM EDT Performed at: [address] [place] [id number] Fire Pot Operator: Michaelle Martins MD, Phone: [phone] Anastacio Long MD LAB BLOOD ORDERABLES F inal Result [facility] 1 * ECG 12 lead (11/26/2024 10:56 AM EDT) [facility] Signature Ventricular Rate ECG 73 BPM GEMUSE Atrial Rate 122 BPM GEMUSE QRS Duration 110 ms GEMUSE Q-T Interval 384 ms GEMUSE QTc 423 ms GEMUSE R [place] -82 degrees GEMUSE T [place] 46 degrees GEMUSE ECG Interpretation Atrial fibrillation Left axis deviation Anterior infarct , age undetermined Possible Lateral infarct , age undetermined Inferior infarct , age undetermined Abnormal ECG Confirmed by ANASTACIO LONG ([id number]) on 12/04/2024 5:56:59 PM GEMUSE 11/26/2024 10:5 6 AM EDT 12/04/2024 5:56 PM EDT Anastacio Long MD ECG ORDERABLES Final Result GEMUSE * (ABNORMAL) TRANSTHORACIC ECHOCARDIOGRAM (TTE) COMPLETE (11/04/2024 3:30 PM EDT) [facility] LV EDV (A2C) 139 mL CV PACS [...] 32 % CV PACS Left Atrium Minor [place] 5.8 cm CV PACS Left Atrium Major [place] 5.5 cm CV PACS LA Area Sys [...] atrial fibrillation. Unable to administer contrast. Anastacio Long MD CV ECHO PROCEDURES [facility] Result * Magnesium (11/03/2024 12:04 PM EDT) Magnesium 1.9 1.6 - 2.3 mg/dL [facility] 1 Blood Venous blood specimen / Unknown 11/03/2024 12:04 PM EDT 11/03/2024 Narrative [facility] 1 - 11/04/2024 8:07 AM EDT Performed at: 01 - [facility] [address] [id number] Fire Pot Operator: Michaelle Martins MD, Phone: [phone] Anastacio Long MD LAB BLOOD ORDERABLES F inal Result [facility] 1 from Last 3 Months Insurance MEDICARE [facility] Care Teams Rfid Technician Relationship Specialty Start Date End Date Esteban Salgado MD [address] [place] [address] [address] [facility] [place] [address] PCP - General Internal Medicine 06/01/20
--- NOTE | 2024-12-21 22:13 | PC.NURSE ---
Dermabond applied by JHONNY Gonzales to left index finger. Patient states I almost bled to ! If I had to wait any longer, I would've had a psychotic episode! Patient arrived to ED 6 hours ago, pt stating that he's been here for 9 hours. Very small, superficial skin tear. When offered to cleanse & bandage wound, patient stated no! I want this sutured, I didn't just come here to get this cleaned and be let go! Explained risks/benefits of sutures vs Dermabond, agreed with Dermabond use. Patient is demanding, but alert/oriented. Given DTaP to left deltoid as ordered. Ambulates steadily with cane at baseline.
[2024-12-21 22:56] VITALS: BP 116/60; PULSE 76; RESP 18; TEMP 36.6; O2SAT 95
== END 2024-12-21 22:56 | disposition home or self-care (01) ==
PROVIDERS: Emergency Provider Emergency Medicine; PCP Internal Medicine
DX: S61.211A Laceration without foreign body of left index finger without damage to nail, initial encounter (principal); I48.91 Unspecified atrial fibrillation; W26.0XXA Contact with knife, initial encounter; Y93.G3 Activity, cooking and baking; Y92.9 Unspecified place or not applicable; Y99.8 Other external cause status; Z79.01 Long term (current) use of anticoagulants; Z79.899 Other long term (current) drug therapy
CPT/HCPCS: 90471; 90715; 99283; 99284

== ENCOUNTER 2025-02-02 12:00 | Outpatient (REF) | payer MEDICARE, SELFPAY ==
--- NOTE | ~2025-02-02 | XR_ITS ---
EXAMINATION: XR KNEE, RIGHT CLINICAL INFORMATION: M25.569 - Pain in unspecified knee COMPARISON: None available. TECHNIQUE: [place] view of the right knee. FINDINGS: There is faint stippled calcification visible in the patellofemoral joint. Joint spaces preserved. There are small marginal osteophytes involving patella. XR/XR knee RT 1V IMPRESSION: Mild chondrocalcinosis. Limited study with only a sunrise view. Electronically signed by: Lucas Watson MD 02/02/2025 01:05 PM EDT
--- OUTSIDE RECORDS SUMMARY | 2025-02-02 12:49 | XMS_ITS | Encounter Summary ---
Author Organization [facility] Address [address] [place] [address] Care Team Providers Care Filler Shredder Helper Name Role Phone Esteban Salgado MD Primary Care Provider [phone] Reason for Visit * Reason Onset Date Comments Weight Check 01/18/2025 Encounter Details Date Type Department Care Team (Late st Contact Info) Description 01/18/2025 Telephone [facility] [address] [place] [address] Talha Murrieta MD [address] [place] [address] [address] [place] [address] Weight Check Social History Tobacco Use Types Packs/Day Years [...] on file Sexual Orientation Not on file documented as of this encounter Progress Notes * Clover Burnett RN - 01/18/2025 10:13 AM EDT WishLinkt message sent to pt * Clover Burnett RN - 01/18/2025 9:27 AM EDT Noted the below * Eben Grimm - 01/18/2025 9:24 AM EDT Patient is calling to inform the nurse that his weight is steady. He states he was supposed to callback last week,but his phone is out of service. Patient states he does not need a call back. Pleasereach out to him via [employer] if you need to. documented in this encounter Plan of Treatment Not on file documented as of this encounter Visit Diagnoses Not on filedocumented in this encounter Care Teams Filler Shredder Helper Relationship Specialty Start Date End Date Esteban Salgado MD [address] [place] [address] [address] [facility] [place] [address] PCP - General Internal Medicine 06/01/20 documented as of this encounter
--- OUTSIDE RECORDS SUMMARY | 2025-02-02 12:49 | XMS_ITS | Patient Health Record ---
Author Organization [facility] Address [address] [place] [address] Care Team Providers Care Hydraulic Press In Operator Name Role Phone Rl Fernando MD Primary Care Provider Oleg Adams Jr Unavailable Reason For Referral No Information Medications Medication SIG (Take, Route, Frequency, Duration) Notes Start Date End Date Status Vitamin D 2000iu Act flynn Aspir-81 81mg Active Vitamin C 500mg Acti ve Melatonin 0.5g Activ e traZODone HCl 150mg Active Terazosin HCl 5mg Ac tive [place] 3 1000mg Activ e Multi Vitamin/Minerals 07/01/20242024 [...] [place] [address] [place] [address] [id number] FELECIA PIMENTEL Self - patient is the insured [employer] CLAIMS [address] [place] [address] [id number] PIA Panda FELECIA Self - patient is the insured Medical (General) History Medical History History ICD Code Hx of tubular adenoma and hyperplastic p olyps Enlarged prostate Insomnia Surgical History Surgery Date(Month/Year) Appendectomy Wedge resection of an abscess from right midddle lobe of lung Right inguinal herniorrhaphy cyst removal on tip of finger
== END 2025-02-02 12:01 | disposition home or self-care (01) ==
LOC: HO.HOSX 12:00
PROVIDERS: Visit Provider Physician Assistant
DX: M17.11 Unilateral primary osteoarthritis, right knee (principal); M25.561 Pain in right knee; R29.898 Other symptoms and signs involving the musculoskeletal system
CPT/HCPCS: 73560; 99202

== ENCOUNTER 2025-02-02 12:49 | Outpatient (AMB) | payer MEDICARE, SELFPAY ==
--- NOTE | 2025-02-02 12:55 | MHC.OFFVIS ---
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 Patient reports ongoing pain since September. Hisotry of right hip surgery her had a closed hip fracture. He states that his pain is on the posterior aspect of the knee. Patient mentions that his knee pain is worse when he is walking, getting up from a sitting position and going up and down the stairs. IMPRESSION: 1. No acute findings. Minor degenerative changes. Vascular calcifications. Lateral joint space narrowing on the right. 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 Reeder is an 89-year-old male who presents to the office today for evaluation of right knee pain. He reports that the pain has been present since the beginning of this year. 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 He notes that the pain is worse when getting up from a seated position, walking and going up and down stairs. His goals for today's visit is to strength in the right lower extremity and discuss options for pain relief. [facility] Medical History (Updated 02/03/25 @ 14:32 by Елена Perdomo PA-C) Acute purpuric eruption Abrasion, leg w/o infection Visit for suture removal Right leg swelling Blood pressure elevated without history of HTN Femoral artery pseudo-aneurysm, left Exposure to COVID-19 virus Pulmonary nodule Degenerative disc disease Severe aortic stenosis Left carotid stenosis Insomnia BPH (benign prostatic hyperplasia) Osteoporosis Surgical History S/P TAVR (transcatheter aortic valve replacement) History of appendectomy History of tonsillectomy and adenoidectomy H/O right inguinal hernia repair Trochanteric fracture of right femur Family History Father No problems noted. Mother No problems noted. Sister In good health Social History (Reviewed 02/02/25 @ 13:05 by Katheryn Escobar Housing: House Alcohol intake: current Alcohol intake frequency: holidays/special occasions only Patient Tobacco Use Status: Never used Tobacco Tobacco use type: Cigarette e-Cigarette/Vaping Use: Never Used Second Hand Smoke Exposure: No service: No Current occupational status: retired Cognitive needs: No Hearing needs: No Vision needs: Yes Review of Systems Const All systems reviewed & are unremarkable except as noted in HPI and below Physical Exam Vital Signs: BMI result Body Mass Index 23.0 Const General: cooperative, healthy appearing and no acute distress Resp Effort & Inspection: normal respiratory effort and able to speak in complete sentences Extrem Other: Right knee: Normal to inspection. No ecchymosis, erythema, or joint effusion. No tenderness to palpation along the medial or lateral joint lines. Full knee extension and flexion. Negative Bernice's. Negative anterior drawer. NVI. Psych Appearance: grossly normal Mental Status: mental status grossly normal Attitude: cooperative Assessment & Plan Assessment & Plan (1) Osteoarthritis of right knee: Code(s): M17.11 - Unilateral primary osteoarthritis, right knee Category: Medical (2) Weakness of right lower extremity: Code(s): R29.898 - Other symptoms and signs involving the musculoskeletal system Category: Medical Plan Mr. Reeder is an 89-year-old male who presents to the office today for evaluation of right knee pain. He reports that the pain has been present since the beginning of this year. 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 He notes that the pain is worse when getting up from a seated position, walking and going up and down stairs. His goals for today's visit is to strength in the right lower extremity and discuss options for pain relief. While the office today, we discussed the role of cortisone injection physical therapy. At this time the patient is not experiencing severe enough pain in the right knee to move forward with a cortisone injection at this time. He will reserve this for when he is having more stressing symptoms. Patient is amenable to attend physical therapy to work on conditioning of the right lower extremity. Where has been placed while in the office today. He will follow up with Orthopedics p.r.n., sooner if needed. X-rays of the right knee which were obtained while in the office today and were reviewed by me, Елена Perdomo PA-C, revealed significant osteoarthritis. Orders: Orders PT Evaluation and Treatment 02/02/25 R29.898 - Other symptoms and signs involving the musculoskeletal system XR knee RT 1V 02/02/25 M25.569 - Pain in unspecified knee Coding Level of Care Code New Pt Level 3 (17377) Diagnoses Osteoarthritis of right knee M17.11 Weakness of right lower extremity R29.898
[2025-02-02 13:05] VITALS: BMI 23.0
== END 2025-02-02 13:49 | disposition home or self-care (01) ==
LOC: HO.HOS 12:50
PROVIDERS: PCP Internal Medicine; Visit Provider Physician Assistant
DX: M17.11 Unilateral primary osteoarthritis, right knee (principal); R29.898 Other symptoms and signs involving the musculoskeletal system
CPT/HCPCS: 99203

== ENCOUNTER → 2025-02-02 12:53 | Outpatient (BNV) | payer MEDICARE, SELFPAY | PROVIDERS: Visit Provider Radiology Diagnostic Radiology | DX: M11.261 Other chondrocalcinosis, right knee (principal) | CPT/HCPCS: 73560 ==

== ENCOUNTER 2025-02-16 13:18 | Outpatient (AMB) | payer MEDICARE, SELFPAY ==
[2025-02-16 13:20] VITALS: BP 104/52; PULSE 80; O2SAT 97; BMI 23.1
--- NOTE | 2025-02-16 13:20 | MHC.PC.OV ---
Vital Signs 02/16/25 13:20 Height 5 ft 10 in Weight 161 lb BMI 23.1 BP 104/52 L Blood Pressure Location Lt brachial Position Sitting Pulse 80 Pulse Source Pulse Oximeter Pulse Oximetry (%) 97 Oxygen Delivery Method Room Air Intake Visit Reasons: sob on exertion Allergies No Known Allergies Allergy (Verified 02/16/25 13:21) Medication List - Last Reconciled 02/16/25 by Esteban Salgado MD acetaminophen (Tylenol Extra Strength) 1,000 mg PO Q6H PRN apixaban (Eliquis) 5 mg PO BID ascorbate calcium (vitamin C) 500 mg PO DAILY aspirin 81 mg PO DAILY atorvastatin 10 mg PO DAILY cholecalciferol (vitamin D3) 50 mcg PO DAILY 90 days comp.stocking,knee,long,medium As directed 20-30 mm HG dapagliflozin propanediol (Farxiga) 10 mg PO DAILY diclofenac sodium 1% (Voltaren Arthritis Pain) 4 grams topical QID furosemide 20 mg PO DAILY melatonin 10 mg PO BEDTIME multivitamin 1 tab PO DAILY sacubitril-valsartan 24-26 mg (Entresto) 1 tab PO BID spironolactone 25 mg PO DAILY spironolactone 25 mg PO DAILY terazosin 5 mg PO DAILY trazodone 150 mg PO BEDTIME vitamins A,C,H-xwcy-qhlvbh 4,296 mcg-226 mg-90 mg (PreserVision AREDS) 1 cap PO BID Tobacco use date assessed: 12/17/24 Fall risk assessment: No Falls in past year Last assessed Fall Risk: 02/16/25 Dental Screening Dental Screen Date: 12/17/24 [facility] Medical History (Updated 02/14/25 @ 16:45 by Esteban Salgado MD) Acute purpuric eruption Abrasion, leg w/o infection Visit for suture removal Right leg swelling Blood pressure elevated without history of HTN Femoral artery pseudo-aneurysm, left Exposure to COVID-19 virus Pulmonary nodule Degenerative disc disease Severe aortic stenosis Left carotid stenosis Insomnia BPH (benign prostatic hyperplasia) Osteoporosis Surgical History S/P TAVR (transcatheter aortic valve replacement) History of appendectomy History of tonsillectomy and adenoidectomy H/O right inguinal hernia repair Trochanteric fracture of right femur Family History Father No problems noted. Mother No problems noted. Sister In good health Social History Housing: House Alcohol intake: current Alcohol intake frequency: holidays/special occasions only Patient Tobacco Use Status: Never used Tobacco Tobacco use type: Cigarette e-Cigarette/Vaping Use: Never Used Second Hand Smoke Exposure: No service: No Current occupational status: retired Cognitive needs: No Hearing needs: No Vision needs: Yes Questionnaire PHQ-9 Over the last 2 weeks, how often have you been bothered by any of the following problems? 1. Little interest or pleasure in doing things: not at all 2. Feeling down, depressed, or hopeless: not at all 3. Trouble falling or staying asleep, or sleeping too much: not at all 4. Feeling tired or having little energy: not at all 5. Poor appetite or overeating: not at all 6. Feeling bad about yourself - or that you are a failure or have let yourself or your family down: not at all 7. Trouble concentrating on things, such as reading the newspaper or watching television: not at all 8. Moving or speaking so slowly that other people could have noticed. Or the opposite - being so fidgety or restless that you have been moving around a lot more than usual: not at all 9. Thoughts that you would be better off or of hurting yourself in some way: not at all Total score: 0 Depression Screening Interpretation: Negative Depression Screening Done: Yes Source: Developed by Drs. Vimal Jaquez, Kat Tirado, Mckay Falk and colleagues, with an educational destiny from [employer]. Thrive Questionnaire Date Thrive assessed: 02/09/25 I am a: Patient What is your living situation today?: I have a steady place to live Within the past 12 months, did the food you bought not last and you didn't have the money to get more?: Never true Within the past 12 months, did you worry whether your food would run out before you got money to buy more?: Never true Do you have trouble paying for medicines?: I choose not to answer this question Do you have trouble getting transportation to medical appointments?: I choose not to answer this question Do you have trouble paying your heating and electricity bill?: I choose not to answer this question Do you have trouble taking care of your child, family member or friend?: I choose not to answer this question Do you have trouble with day-to-day activities such as bathing, preparing meals, shopping, managing finances, etc.?: I choose not to answer this question Are you currently unemployed and looking for a job?: I choose not to answer this question Are you interested in more education?: I choose not to answer this question Please select the resources that you would like help with: None Currently or been in a relationship where the following occur: No concerns reported THRIVE Score: 0 AUDIT C Alcohol Use Questionnaire (AUDIT-C) 1. How often do you have a drink containing alcohol?: Never 3. How often do you have six or more drinks on one occasion?: Never Total Score: 0 TAYE-7 AMB Questionnaire TAYE-7 Date TAYE - 7 assessed: 12/17/24 Feeling nervous, anxious, or on edge: 0 = Not at all Not being able to stop or control worryin = Not at all Worrying too much about different things: 0 = Not at all Trouble relaxin = Not at all Being so restless that it is hard to sit still: 0 = Not at all Becoming easily annoyed or irritable: 0 = Not at all Feeling afraid as if something awful might happen: 0 = Not at all Total TAYE-7 score (0-4 normal; 5-9 mild; 10-14 moderate; 15-21 severe): 0 Source: Developed by Drs. Vimal Jaquez, Kat Tirado, Mckay Falk and colleagues, with an educational destiny from [employer]. Physical exam (Primary Care) Vital Signs: Last Vital Signs Pulse 80 02/16/25 13:20 BP 104/52 L 02/16/25 13:20 Pulse Ox 97 02/16/25 13:20 Oxygen Delivery Method Room Air 02/16/25 13:20 BMI result Body Mass Index 23.1 Tobacco/Smoking Status: Tobacco use Status Tobacco use date assessed 12/17/24 02/16/25 13:31 Patient Tobacco Use Status Never used Tobacco 02/16/25 13:31 Tobacco use type Cigarette 02/16/25 13:31 e-Cigarette/Vaping Use Never Used 02/16/25 13:31 PHQ-9: PHQ-9 Score PHQ-9: Total score 0 02/16/25 17:12 Depression Screening Interpretation: Negative Thrive Assessment: Date of Thrive Assessment Date Thrive assessed 02/09/25 02/16/25 13:31 Currently or been in a relationship where the following occur: No concerns reported Const General: alert; No acute distress Eyes Conjunctivae: conjunctivae normal Resp Auscultation: clear to auscultation bilaterally Cardio Rate: regular rate Rhythm: regular rhythm GI Inspection: Yes normal to inspection Extrem General: Yes normal to inspection and No edema Coding Level of Care Code Est Pt Level 4 (81164) Complex EM visit Add On G2211 Diagnoses Non-ischemic cardiomyopathy I42.8 S/P TAVR (transcatheter aortic valve replacement) Z95.2 Coronary artery disease involving [place] coronary artery of [place] heart without angina pectoris I25.10 Associated angina: without angina Coronary Disease-Associated Artery/Lesion type: [place] artery [place] vs. transplanted heart: [place] heart Paroxysmal atrial fibrillation I48.0 Hypercholesterolemia E78.00 Age-related osteoporosis with current pathological fracture with routine healing, subsequent encounter M80.00XD Encounter type: subsequent encounter Fracture healing: with routine healing Osteoporosis type: age-related Presence of current pathological fracture: with current pathological fracture Assessment & Plan Assessment & Plan (1) Non-ischemic cardiomyopathy: Comment: echo october 2024 32% Code(s): I42.8 - Other cardiomyopathies Category: Medical Plan: Continuing with anticoagulation with Eliquis started on Farxiga 10 mg once a day continuing with the diuretic furosemide 20 mg once a day Entresto 1 tablet twice a day of and started on spironolactone 25 mg once a day (2) S/P TAVR (transcatheter aortic valve replacement): Comment: 09/20/[address] Roberson balloon aortic valvuloplasty Echocardiogram done 11/04/2024 ejection fraction 32% global hypokinesis more pronounced inferoseptal wall left ventricle mild hypertrophy aortic valve 26 mm TAVR bioprosthetic valve no changes compared to August 2021 mitral valve mild to moderate regurgitation with mild stenosis tricuspid valve [id number] regurgitation moderate pulmonary hypertension Code(s): Z95.2 - Presence of prosthetic heart valve Category: Surgical Plan: Continuing to monitor under cardiology (3) Coronary artery disease: Code(s): I25.10 - Atherosclerotic heart disease of [place] coronary artery without angina pectoris Category: Medical Qualifiers: Associated angina: without angina Coronary Disease-Associated Artery/Lesion type: [place] artery [place] vs. transplanted heart: [place] heart Qualified Code(s): I25.10 - Atherosclerotic heart disease of [place] coronary artery without angina pectoris Plan: Control the cholesterol, weight, blood pressure, on anticoagulation (4) Paroxysmal atrial fibrillation: Code(s): I48.0 - Paroxysmal atrial fibrillation Category: Medical Plan: Continue with anticoagulation continue monitor renal function (5) Hypercholesterolemia: Comment: decline medical treatment 12/2021 Code(s): E78.00 - Pure hypercholesterolemia, unspecified Category: Medical Plan: Avoid fried foods, chicken skin, eggs, butter margarine, pastries and meat. Be it pork or beef they have a lot of cholesterol on atorvastatin LDL goal of less than 70 and triglyceride of less than 150 (6) Osteoporosis: Comment: July 2018, December 202103/2024 Code(s): M81.0 - Age-related osteoporosis without current pathological fracture Category: Medical Qualifiers: Encounter type: subsequent encounter Fracture healing: with routine healing Osteoporosis type: age-related Presence of current pathological fracture: with current pathological fracture Qualified Code(s): M80.00XD - Age-related osteoporosis with current pathological fracture, unspecified site, subsequent encounter for fracture with routine healing Plan: Up-to-date with bone density discussed about calcium and vitamin-D Plan History of Present Illness The patient is an 89-year-old male presenting for management of multiple chronic conditions including cardiovascular issues and osteoarthritis. The patient has a history of severe aortic stenosis and underwent Transcatheter Aortic Valve Replacement (TAVR) in 2020. He also has coronary artery disease and atrial fibrillation, for which he is on anticoagulation therapy with Eliquis. His ischemic cardiomyopathy was noted with an ejection fraction of 32% on an echocardiogram in October 2024. The patient has been diagnosed with osteoporosis, with the last bone density test conducted in March 2024. He also has benign prostatic hyperplasia and carotid artery stenosis. In terms of musculoskeletal issues, the patient has significant osteoarthritis, particularly affecting the right knee, with mild chondrocalcinosis observed on x-ray. He declined steroid injections for the knee pain and is managing with physical therapy exercises. 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 He reports anemia with a hemoglobin level of 12.9 and hematocrit of 39.7. The patient experiences dysphagia, often getting food stuck in his throat, but denies any reflux symptoms. He has had two molars extracted recently due to dental issues. Health Maintenance - Bone density test conducted in March 2024 - Discussion about calcium and vitamin D supplementation Social History - Functional Status: Uses a walker for mobility and exercises at home due to low energy levels - Nutritional Intake: Avoids salted peanuts due to dental issues Review of Systems - Cardiovascular: Reports irregular heart rate, denies chest pain - Respiratory: Denies dyspnea or cough - Gastrointestinal: Reports dysphagia, denies reflux - Musculoskeletal: Reports knee pain, denies arthritis Physical Exam - Cardiovascular: Irregular heart rate, blood pressure slightly low - Respiratory: Lungs clear to auscultation, no wheezes or rales - Oral Cavity: No food particles observed, presence of cavity in molar Results - Labs: Hemoglobin 12.9, Hematocrit 39.7, Uric Acid 7.6, LDL 50 - Imaging: X-ray of knee showing mild chondrocalcinosis Plan The patient will continue anticoagulation therapy with Eliquis for atrial fibrillation and will be monitored for any changes in cardiovascular status. For ischemic cardiomyopathy, the patient is advised to continue with beta blockers, Entresto, and diuretics including furosemide and spironolactone. The patient is encouraged to maintain physical activity as tolerated and to use a walker for support. For osteoarthritis, the patient is advised to continue with physical therapy exercises and consider the use of Voltaren gel for pain management. The patient is advised to follow up with hematology oncology for further evaluation of MGUS. Regular monitoring of renal function is recommended due to the use of diuretics and anticoagulants. The patient should continue with atorvastatin to manage hypercholesterolemia, aiming for an LDL goal of less than 70. Patient was informed and verbally consented to the use of an ambient scribe for clinic note documentation during this visit. Discussion Notes During the visit, I discussed with the patient the importance of continuing anticoagulation therapy with Eliquis for atrial fibrillation and the need for regular monitoring of cardiovascular status. We reviewed the management plan for ischemic cardiomyopathy, including the continuation of beta blockers, Entresto, and diuretics. I advised the patient to maintain physical activity as tolerated and to use a walker for support. For osteoarthritis, I recommended continuing physical therapy exercises and considering the use of Voltaren gel for pain management. I emphasized the need for follow-up with hematology oncology for further evaluation of MGUS and regular monitoring of renal function due to the use of diuretics and anticoagulants. We also discussed the continuation of atorvastatin to manage hypercholesterolemia, with an LDL goal of less than 70. Patient Instructions - Continue taking Eliquis as prescribed for atrial fibrillation. - Maintain physical activity as tolerated and use a walker for support. - Follow up with hematology oncology for MGUS evaluation. - Continue with atorvastatin to manage cholesterol levels. - Monitor renal function regularly due to medication use. - Consider using Voltaren gel for knee pain management. Medications: Refilled furosemide 20 mg PO DAILY 90 tabs 3RF I48.0 - Paroxysmal atrial fibrillation
--- OUTSIDE RECORDS SUMMARY | 2025-02-16 14:33 | XMS_ITS | Patient Health Record ---
Author Organization [facility] Address [address] [place] [address] Care Team Providers Care Extension Professor Name Role Phone Rl Fernando MD Primary Care Provider Oleg Adams Jr Unavailable Reason For Referral No Information Medications Medication SIG (Take, Route, Frequency, Duration) Notes Start Date End Date Status Vitamin D 2000iu Act flynn Aspir-81 81mg Active Vitamin C 500mg Acti ve Melatonin 0.5g Activ e traZODone HCl 150mg Active Terazosin HCl 5mg Ac tive Morse 3 1000mg Activ e Multi Vitamin/Minerals 07/01/20242024 [...] [place] [address] [place] [address] [id number] FELECIA PIMENTEL Self - patient is the insured [employer] CLAIM[employer] [address] [place] [address] [id number] PIA Panda FELECIA Self - patient is the insured Medical (General) History Medical History History ICD Code Hx of tubular adenoma and hyperplastic p olyps Enlarged prostate Insomnia Surgical History Surgery Date(Month/Year) Appendectomy Wedge resection of an abscess from right midddle lobe of lung Right inguinal herniorrhaphy cyst removal on tip of finger
--- OUTSIDE RECORDS SUMMARY | 2025-02-16 14:33 | XMS_ITS | Clinical Summary ---
Author Organization [facility] [employer] [facility] Address [address] [place] [address] Phone Care Team Providers Care Combat Engineer Name Role Phone Esteban Salgado MD Primary Care Provider [phone] Allergies No known active allergies Medications amoxicillin (AMOXIL) 500 mg tablet Take four tablets (2,000 mg) by mouth 30-60 minutes prior to dental cleanings or procedures. 4 tablet 1 4 Active acetaminophen (TYLENOL) 500 mg tablet Take 2 Tablets by mouth at bedtime. 9 Active ascorbic acid, vitamin C, 500 mg capsule Take 500 mg by mouth daily. 9 Active cholecalciferol (VITAMIN D-3) 50 mcg (2,000 unit) tablet Take 1 Tablet by mouth daily. Active diphenhydrAMINE (BENADRYL) 25 mg tablet 2 tablets daily at bedtime 9 Active docusate sodium (COLACE) 50 mg capsule Take 50 mg by mouth daily. Active melatonin 3 mg tablet extended release Take 3 mg by mouth at bedtime. 9 Active FA/mv,Ca,iron,mi n/lycopene/lut (MULTIVITAL ORAL) 1 Tablet daily. 9 Active vit C/E/Zn/coppr/lut ein/zeaxan (PRESERVISION AREDS-2 ORAL) Take 1 Tablet by mouth 2 times daily. Active terazosin (HYTRIN) 5 mg capsule Take 5 mg by mouth daily. 9 Active traZODone (DESYREL) 150 mg tablet Take 1 Tablet by mouth at bedtime. 9 Active multivitamin tablet Take 1 tablet by mouth 1 (one) time each day. Active aspirin 81 mg EC tablet Take 1 tablet (81 mg total) by mouth 1 (one) time each day. Active sacubitriL-valsa rtan (Entresto) 24-26 mg per tabletIndication s:HFrEF (heart failure with reduced ejection fraction) (CMS/HCC V24, CMS/HCC V28) Take 1 tablet by mouth 2 (two) times a day. 180 each 3 5 11/12/19 26 Active atorvastatin (LIPITOR) 10 mg tablet TAKE ONE TABLET BY MOUTH EVERY DAY 90 tablet 3 5 Active glucosamine sulfate 500 mg tablet Take 1 tablet (500 mg total) by mouth 1 (one) time each day. Active dapagliflozin propanediol (FARXIGA) 10 mg tabletIndication s:HFrEF (heart failure with reduced ejection fraction) (CMS/HCC V24, CMS/HCC V28) Take 1 tablet (10 mg total) by mouth 1 (one) time each day. 90 each 3 5 12/22/19 26 Active spironolactone (ALDACTONE) 25 mg tabletIndication s:HFrEF (heart failure with reduced ejection fraction) (CMS/HCC V24, CMS/HCC V28) Take 1 tablet (25 mg total) by mouth 1 (one) time each day. 90 each 3 5 12/22/19 26 Active Eliquis 5 mg tablet Take 1 tablet (5 mg total) by mouth 2 (two) times a day. 180 tablet 1 5 Active furosemide (LASIX) 20 mg tabletIndication s:Chronic heart failure with preserved ejection fraction (CMS/HCC V24, CMS/HCC V28) Take 1 tablet (20 mg total) by mouth 1 (one) time each day. 90 tablet 3 5 Active Active Problems Problem Noted Date Diagnosed Date MGUS (monoclonal gammopathy of unknown significa nce) 12/21/2024 Assessment & Plan (01/05/2025 2:33 PM EDT): Patient oratory testing showed evidence of abnormal serum kappa lambda ratio at 2.25 and an abnormal serum immunofixation study (there was evidence of polyclonal increase detected in 1 or more immunoglobulins). The patient has mild anemia on the CBC. The patient does not have any evidence of renal dysfunction. 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 Will refer the patient for an evaluation with the hematology service. Orders: Ambulatory referral to Hematology / Oncology; Future HFrEF (heart failure with re duced ejection fraction) ([facility] V24, [facility] V28) 11/03/2024 Assessment & Plan (01/05/2025 2:33 PM EDT): The patient has heart failure with reduced ejection fraction. Etiology: Predominantly nonischemic Last ischemic work-up: 1. Left heart catheter in October 2024 showed moderate diffuse coronary artery disease. Interventional cardiology service stated that there was no role for PCI. Medical therapy was advised. Nonischemic cardiomyopathy evaluation: 1. Cardiac PYP scan done on 11/30/2024 did not show any evidence of TTR amyloidosis. 2. Laboratory testing showed a mildly abnormal serum kappa lambda ratio and a mildly abnormal serum immunofixation study. The patient does not have any other signs suggestive of multiple myeloma. His laboratory abnormalities may be secondary to MGUS. Will refer the patient for an evaluation with the hematology service. Last documented LVEF: 1. Echocardiogram done in October 2024 showed an LVEF of 32% Current symptom classification: NYHA class 2-3 Guideline directed medical therapy: 1. Beta-blockers: None 2. ARNI / KENIA inhibitor / ARB: Entresto 24/26 mg orally twice a day 3. MRA: None 4. SGL2 inhibitor: None 5. Loop diuretic: Furosemide 20 mg orally daily Candidate for ICD or PICKER AND PACKER: Not a candidate at this point given that the GDMT for his heart failure is still pending to be optimized. Assessment: 89 years old male patient with an apparent nonischemic cardiomyopathy. He is currently on low-dose Entresto and low-dose salivate therapy with furosemide. Will start spironolactone 25 mg orally daily. Also, will start Farxiga 10 mg orally daily. The patient does not have any history of UTI. He also does not have any history of diabetes mellitus type 1. I discussed with the patient and his the risk of ketoacidosis secondary to the use of SGLT2 inhibitor. We discussed the warning symptoms and signs of a ketoacidosis event. The patient was instructed to go to the hospital immediately if he notices any symptoms suggestive of diabetic ketoacidosis (fatigue, abdominal pain, nausea, vomiting). Plan of care: 1. Continue furosemide 20 mg orally daily. Start Farxiga 10 mg orally daily and spironolactone 25 mg orally daily. The patient will complete laboratory testing in 1 week after the initiation of these medications. 2. Refer the patient for an evaluation with the hematology service given apparent MGUS. Orders: dapagliflozin propanediol (FARXIGA) 10 mg tablet; [...] taking the medication Candidate for ICD or PICKER [employer] PACKER: Not a candidate at this point given [...] will continue current therapies. Assessment & Plan (01/05/2025 2:33 PM EDT): The patient has a history of hyperlipidemia. He also has a history of CAD. He is currently on atorvastatin 10 mg orally daily. Will continue his current therapy. Assessment & Plan (12/04/2024 6:01 PM EDT): The patient has a history of hyperlipidemia. He is on atorvastatin 10 mg daily daily. Will continue his current therapy. Assessment & Plan (11/03/2024 2:41 PM EDT): The patient has a history of hyperlipidemia. He is currently on atorvastatin 10 mg regular. Will continue his current therapy. Carotid disease, bilateral ([facility] V24) 022 Overview (06/26/2024): Last Assessment & Plan: Last carotid duplex 11/2023 showed less than 50% stenosis in the bilateral carotid arteries. He continues on aspirin and statin. Atrial fibrillation ([facility] V24, [facility] V28) 1 08/09/2020 Overview (06/26/2024): Last Assessment [...] Will continue current therapies. Assessment & Plan (01/05/2025 2:33 PM EDT): The patient has a history of longstanding persistent atrial fibrillation. Resting heart rate was noted to be adequate. Also, the patient has an increased [id number]- VASc score and continues on anticoagulation therapy with apixaban. No episodes of abnormal bleeding have been noted. Will continue current therapy. Assessment & Plan (12/04/2024 6:01 PM EDT): The patient has a history of atrial fibrillation. Resting heart rate was noted to be adequate. Also, the patient has an increased [id number] score and continues on anticoagulation therapy with [...] and aspirin as prescribed. Assessment & Plan (01/05/2025 2:33 PM EDT): The patient has a history of coronary artery disease. Recent left heart cath showed a significant stenosis in the RCA and at least a moderate stenosis in the mid LAD. The interventional cardiology service stated that there was no clear role for PCI. Also, they stated that there was no significant changes in this recent angiogram when compared to the prior study done before his TAVR valve was placed. As such, the recommended medical management only for now. On today's visit, the patient denies any anginal symptoms. He continues on medical therapy with atorvastatin, aspirin. As such, at this point, we will continue his current medication regimen Assessment & Plan (12/04/2024 6:01 PM EDT): [...] to rule out any worsening of his cherokee CAD as a cause of his cardiomyopathy. [...] valve 08/25/2020 Overview (06/26/2024): TAVR done at [facility] on 09/19/2020 Last Assessment [...] keepThis to a Minimum. Assessment & Plan (01/05/2025 2:33 PM EDT): The patient is a history of a bioprosthetic aortic valve. Echocardiogram from October 2024 showed a normal functioning bioprosthetic aortic valve without significant stenosis or insufficiency. Will continue periodic monitoring. Assessment & Plan (12/04/2024 6:01 PM EDT): [...] in August [address] Roberson at [facility] via a TAVR technique. His last echocardiogram [...] Encounters Date Type Department Care Team Description 02/02/2025 Telephone [facility] [address] [place] [address] Anastacio Long MD Med Refill 01/18/2025 Telephone [facility] [address] [facility] [address] [place] [address] Anastacio Long MD Weight Check 01/13/2025 Telephone [facility] [address] [facility] [address] [place] [address] Anastacio Long MD 01/05/2025 Telephone [facility] [address] [facility] [address] [place] [address] Anastacio Long MD Referral (Hematology/Oncology) 01/04/2025 Telephone [facility] [address] [facility] [address] [place] [address] Anastacio Long MD Med Refill; Medication 12/21/2024 2:00 PM EDT Office Visit [facility] [address] [facility] [address] [place] [address] Anastacio Long MD HFrEF (heart failure with reduced ejection fraction) (CMS/HCC V24, CMS/HCC V28) (Primary Dx); MGUS (monoclonal gammopathy of unknown significance); Pure hypercholesterolemia; History of aortic valve replacement with bioprosthetic valve; Coronary artery disease involving cherokee coronary artery of cherokee heart without angina pectoris; Longstanding persistent atrial fibrillation (CMS/HCC V24, CMS/HCC V28); Bilateral carotid artery stenosis 12/04/2024 Telephone [facility] [address] [facility] [address] [place] [address] Anastacio Long MD Results 11/30/2024 10:00 AM EDT Ancillary Procedure [facility] [address] [place] [address] HFrEF (heart failure with reduced ejection fraction) (CMS/HCC V24, CMS/HCC V28) 11/26/2024 10:50 AM EDT Office Visit [facility] [address] [place] [address] Anastacio Long MD Atrial fibrillation, unspecified type (CMS/HCC V24, CMS/HCC V28) (Primary Dx); Coronary artery disease involving cherokee coronary artery of cherokee heart with angina pectoris (CMS/HCC V24); HFrEF (heart failure with reduced ejection fraction) (CMS/HCC V24, CMS/HCC V28); Pure hypercholesterolemia; History of aortic valve replacement with bioprosthetic valve; Chronic heart failure with preserved ejection fraction (CMS/HCC V24, CMS/HCC V28) 11/24/2024 Telephone [facility] [address] [facility] [address] [place] [address] Anastacio Long MD speak with Dr. Almanzar (Speak with Dr. Almanzar ) from Last 3 Months Surgical History Surgery Date Site/Laterality Comments HERNIA REPAIR PROCEDURE: HISTORICAL HERNIA REPAIR/ING APPENDECTOMY PROCEDURE: HISTORICAL APPENDECTOMY TONSILLECTOMY PROCEDURE: HISTORICAL TONSILLECTOMY ADENOIDECTOMY PROCEDURE: HISTORICAL ADENOIDECTOMY OTHER SURGICAL HISTORY PROCEDURE: OH UNLISTED PROCEDURE CARDIAC SURGERY FEMUR FRACTURE SURGERY Right PROCEDURE: OH OPEN TX FEMORAL FRACTURE DISTAL MED/LAT CONDYLE CARDIAC CATHETERIZATION DONE ON 09/27/2024 AT [facility] W [facility] INDICATIONS: Dyspnea [...] 2) 1954 Cholesterol Screening (Lipid Panel) 05/30/2022 Falls Risk Assessment 05/30/2022 Medicare Annual Wellness Visit 05/30/2022 Social Influencers of Health Screening 05/30/2022 Depression Screening 07/01/2024 Influenza Vaccine (#1) 2025 , 04/05/2023, 10/10/2022, Additional history exists DTaP,Tdap,and Td Vaccines (2 - Td or Tdap) 08/04/2025 08/04/2015 Hypertension/CHF/CAD Annual BMP Blood Test 01/04/2026 01/04/2025, 11/26/2024, 11/03/2024 Pneumococcal Vaccine: 50+ Years Completed 03/31/2018, 06/29/2015 RSV Immunization Adult Patients Completed 05/16/2023 COVID-19 Vaccine Completed 10/13/2024, 08/2023, 10/08/2023, Additional [...] Procedure Name Priority Date/Time Associated Diagnosis Comments COMPREHENSIVE METABOLIC PANEL STAT 01/04/2025 8:33 AM EDT HFrEF (heart failure with reduced ejection fraction) (CMS/HCC V24, CMS/HCC V28) NM CARDIAC AMYLOID STUDY W/ CT Routine [...] fibrillation, unspecified type (CMS/HCC V24, CMS/HCC V28) from Last 3 Months Results * (ABNORMAL) Comprehensive metabolic panel (01/04/2025 8:33 AM EDT) Only the most recent of2 resultswithin the time period is included. Glucose 87 70 - 99 mg/dL [facility] 1 Blood Urea Nitrogen (BUN) 26 8 - 27 mg/dL [facility] 1 Creatinine 1.00 0.76 - 1.27 mg/dL [facility] 1 eGFR 73 >59 mL/min/1. 73 [facility] 1 BUN/Creatinine Ratio 26(H) 10 - 24 [facility] 1 Sodium 140 134 - 144 mmol/L [facility] 1 Potassium 4.0 3.5 - 5.2 mmol/L [facility] 1 Chloride 102 96 - 106 mmol/L [facility] 1 Carbon Dioxide 22 20 - 29 mmol/L [facility] 1 Calcium 9.2 8.6 - 10.2 mg/dL [facility] 1 Protein Total 7.5 6.0 - 8.5 g/dL [facility] 1 Albumin 3.9 3.7 - 4.7 g/dL [facility] 1 Globulin Total 3.6 1.5 - 4.5 g/dL [facility] 1 Bilirubin Total 0.4 0.0 - 1.2 mg/dL [facility] 1 Alkaline Phosphatase 77 44 - 121 IU/L [facility] 1 Aspartate aminotransferase (AST) 20 0 - 40 IU/L [facility] 1 Alanine Aminotransferase (ALT) 14 0 - 44 IU/L [facility] 1 Blood Venous blood specimen / Unknown 01/04/2025 8:33 AM EDT 01/04/2025 Narrative [facility] 1 - 01/04/2025 11:06 PM EDT Performed at: 01 - [facility] [address] [id number] [employer] Fixer: Michaelle Martins MD, Phone: [phone] Anastacio Long MD LAB BLOOD ORDERABLES F inal Result [facility] 1 * NM CARDIAC AMYLOID STUDY W/ CT (11/30/2024 2:04 PM EDT) BSA 1.97 m2 CV PACS STRESS Target HR 113 bpm CV PACS STRESS Anatomical Region Laterality Modality Nuclear Medicine Narrative 11/30/2024 5:49 PM EDT [facility] [address] [place] [address] TEL: FAX: Name: Bobby Reeder Date of [...] context of prior evaluation and referral to swimming pool service technician or amyloid expert is recommended if either: [...] STRESS PROCEDURES F inal Result * (ABNORMAL) [place]-lambda free light chains, quantitative (11/26/2024 12:06 PM EDT) Free [place] Lt Chains Serum 51.6(H) 3.3 - 19.4 mg/L [facility] 1 Free Lambda Lt Chains Serum 22.9 5.7 - 26.3 mg/L [facility] 1 [place]/Lambda Ratio,S 2.25(H) 0.26 - 1.65 [facility] 1 Blood Venous blood specimen / Unknown 11/26/2024 12:06 PM EDT 11/26/2024 Narrative [facility] 1 - 11/27/2024 7:07 PM EDT Performed at: 01 - [facility] [address] [id number] Jacquard L[employer] Fixer: Michaelle Martins MD, Phone: [phone] Anastacio Long MD LAB BLOOD ORDERABLES F inal Result [facility] 1 * (ABNORMAL) N-Terminal Probnp (11/26/2024 12:06 PM EDT) NT-proBNP 5,626(H) 0 - 486 pg/mL [facility] [...] 10:07 AM EDT Performed at: 01 - [facility] [id number] Jacquard Loom Fixer: Michaelle Martins MD, Phone: [phone] Anastacio Long MD LAB BLOOD ORDERABLES F inal Result [facility] 1 * (ABNORMAL) CBC auto differential (11/26/2024 12:06 PM EDT) Pathologist [facility] WBC 7.2 3.4 - 10.8 x10E3/uL [facility] [...] - 11/27/2024 7:06 AM EDT Performed at: [facility] [id number] Jacquard Loom Fixer: Michaelle Martins MD, Phone: [phone] Anastacio Long MD LAB BLOOD ORDERABLES F inal Result [facility] 1 * (ABNORMAL) Prothrombin time with INR (11/26/2024 12:06 PM EDT) [facility] International Normalized Ratio (INR) 1.3(H) 0.9 [...] - 11/27/2024 4:06 AM EDT Performed at: [facility] [id number] Jacquard Loom Fixer: Michaelle Martins MD, Phone: [phone] Anastacio Long MD LAB BLOOD ORDERABLES F inal Result Performing Organization Address [facility] de Phone Number [facility] 1 * (ABNORMAL) Immunofixation electrophoresis serum (11/26/2024 12:06 PM EDT) [facility] Immunofixation Result, Serum Comment(A ) [facility] [...] - 11/27/2024 6:07 PM EDT Performed at: [address] [place] [id number] Jacquard Loom Fixer: Michaelle Martins MD, Phone: [phone] Anastacio Long MD LAB BLOOD ORDERABLES F inal Result Performing Organization Address [facility] de Phone Number [facility] 1 * Thyroid stimulating hormone (11/26/2024 12:06 PM EDT) [facility] TSH 4.430 0.450 - 4.500 uIU/mL [facility] 1 Blood Venous blood specimen / Unknown 11/26/2024 12:06 PM EDT 11/26/2024 Narrative [facility] 1 - 11/27/2024 4:06 AM EDT Performed at: [address] [place], [place] [address] [id number] Jac[employer] Fixer: Michaelle Martins MD, Phone: [phone] Anastacio Long MD LAB BLOOD ORDERABLES F inal Result Performing Organization Address [facility] de Phone Number [facility] 1 * ECG 12 lead (11/26/2024 10:56 AM EDT) Ventricular Rate ECG 73 BPM GEMUSE Atrial Rate 122 BPM GEMUSE QRS Duration 110 ms GEMUSE Q-T Interval 384 ms GEMUSE QTc 423 ms GEMUSE R Hendricks -82 degrees GEMUSE T Hendricks 46 degrees GEMUSE ECG Interpretation Atrial fibrillation Left axis deviation Anterior infarct , age undetermined Possible Lateral infarct , age undetermined Inferior infarct , age undetermined Abnormal ECG Confirmed by ANASTACIO LONG ([id number]) on 12/04/2024 5:56:59 PM GEMUSE 11/26/2024 10:5 6 AM EDT 12/04/2024 5:56 PM EDT us Anastacio Long MD ECG ORDERABLES Final Result GEMUSE from Last 3 Months Insurance MEDICARE [facility] Care Teams Combat Engineer Relationship Specialty Start Date End Date Esteban Salgado MD [address] [place] [address] [address] [facility] [place] [address] PCP - General Internal Medicine 06/01/20
== END 2025-02-16 14:13 | disposition home or self-care (01) ==
LOC: HO.HMCH 13:19
PROVIDERS: PCP Internal Medicine; Visit Provider Internal Medicine
DX: I42.8 Other cardiomyopathies (principal); Z95.2 Presence of prosthetic heart valve; I25.10 Atherosclerotic heart disease of native coronary artery without angina pectoris; I48.0 Paroxysmal atrial fibrillation; E78.00 Pure hypercholesterolemia, unspecified; M80.00XD Age-related osteoporosis with current pathological fracture, unspecified site, subsequent encounter for fracture with routine healing

== ENCOUNTER → 2025-02-16 13:18 | Outpatient (BNVA) | payer MEDICARE, SELFPAY | PROVIDERS: PCP Internal Medicine; Visit Provider Internal Medicine | DX: I42.8 Other cardiomyopathies (principal); I25.10 Atherosclerotic heart disease of native coronary artery without angina pectoris; I48.0 Paroxysmal atrial fibrillation; E78.00 Pure hypercholesterolemia, unspecified; M80.00XD Age-related osteoporosis with current pathological fracture, unspecified site, subsequent encounter for fracture with routine healing; Z95.2 Presence of prosthetic heart valve | CPT/HCPCS: 99212 ==

== ENCOUNTER 2025-03-23 06:39 | Outpatient (REF) | payer MEDICARE, SELFPAY ==
--- OUTSIDE RECORDS SUMMARY | 2025-03-23 06:42 | XMS_ITS | Clinical Summary ---
Author Organization [facility] Address [address] [place] [address] Phone Care Team Providers Care Contact Representative Name Role Phone Esteban Salgado MD Primary Care Provider [phone] Allergies No known active allergies Medications amoxicillin [...] (heart failure with re duced ejection fraction) ([facility] V24, [facility] V28) 11/03/2024 Assessment & Plan (01/05/2025 2:33 [...] mg orally daily Candidate for ICD or 3D SPECIALIST: Not a candidate at this point given [...] taking the medication Candidate for ICD or 3D SPECIALIST: Not a candidate at this point given [...] continue his current therapy. Carotid disease, bilateral ([facility] V24) 022 Overview (06/26/2024): Last Assessment & Plan: Last carotid duplex 11/2023 showed less than 50% stenosis in the bilateral carotid arteries. He continues on aspirin and statin. Atrial fibrillation ([facility] V24, [facility] V28) 1 08/09/2020 Overview (06/26/2024): Last Assessment [...] adequate. Also, the patient has an increased KZH2AD2- VASc score and continues on anticoagulation therapy with apixaban. No episodes of abnormal bleeding have been noted. Will continue current therapy. Assessment & Plan (12/04/2024 6:01 PM EDT): The patient has a history of atrial fibrillation. Resting heart rate was noted to be adequate. Also, the patient has an increased [id number] score and continues on anticoagulation therapy with [...] to rule out any worsening of his [place] CAD as a cause of his cardiomyopathy. [...] valve 08/25/2020 Overview (06/26/2024): TAVR done at [facility] on 09/19/2020 Last Assessment & Plan: He [...] in August [address] Roberson at [facility] via a TAVR technique. His last [...] Encounters Date Type Department Care Team Description 03/16/2025 Telephone [facility] [address] [place] [address] Talha Murrieta MD 02/02/2025 Telephone [facility] [address] [place] [address] Man-Talha Hawk MD 01/18/2025 Telephone [facility] [address] [place] [address] Talha Murrieta MD 01/13/2025 Telephone [facility] [address] [place] [address] Man-Talha Hawk MD 01/05/2025 Telephone [facility] [address] [place] [address] Man-Talha Hawk MD 01/04/2025 Telephone [facility] [address] [place] [address] Talha Murrieta MD 12/21/2024 2:00 PM EDT Office Visit [facility] [address] [place] [address] Man-Talha Hawk MD HFrEF (heart failure with reduced ejection fraction) (CMS/HCC V24, CMS/HCC V28) (Primary Dx); MGUS (monoclonal gammopathy of unknown significance); Pure hypercholesterolemia; History of aortic valve replacement with bioprosthetic valve; Coronary artery disease involving [place] coronary artery of [place] heart without angina pectoris; Longstanding persistent atrial fibrillation (CMS/HCC V24, CMS/HCC V28); Bilateral carotid artery stenosis from Last 3 Months Surgical History Surgery Date Site/Laterality Comments HERNIA REPAIR PROCEDURE: HISTORICAL HERNIA REPAIR/ING APPENDECTOMY PROCEDURE: HISTORICAL APPENDECTOMY TONSILLECTOMY PROCEDURE: HISTORICAL TONSILLECTOMY ADENOIDECTOMY PROCEDURE: HISTORICAL ADENOIDECTOMY OTHER SURGICAL HISTORY PROCEDURE: CO UNLISTED PROCEDURE CARDIAC SURGERY FEMUR FRACTURE SURGERY Right PROCEDURE: CO OPEN TX FEMORAL FRACTURE DISTAL MED/LAT CONDYLE CARDIAC CATHETERIZATION DONE ON 09/27/2024 AT [facility] W KM INDICATIONS: Dyspnea with exertion. Medical [...] 12/21/2024 1:25 PM EDT Plan of Treatment Upcoming Encounters Date Type Department Care Team (Late st Contact Info) Description 03/26/2025 2:00 PM EDT Office Visit [facility] [address] [place] [address] Talha Murrieta MD [address] [place] [address] [place] [phone] Health Maintenance Due Date Last Done Comments [...] reduced ejection fraction) (CMS/HCC V24, CMS/HCC V28) from Last 3 Months Results * (ABNORMAL) Comprehensive metabolic panel (01/04/2025 8:33 AM EDT) Glucose 87 70 - 99 mg/dL [facility] [...] PM EDT Performed at: 01 - [facility] [address] [id number] Drainage Engineer: Michaelle Martins MD, Phone: [phone] us Talha Murrieta MD LAB BLOOD ORDERABLES F inal Result [facility] 1 from Last 3 Months Insurance MEDICARE [facility] Care Teams Contact Representative Relationship Specialty Start Date End Date Esteban Salgado MD [address] [place] [address] [address] [facility] [place] [address] PCP - General Internal Medicine 06/01/20
--- OUTSIDE RECORDS SUMMARY | 2025-03-23 06:42 | XMS_ITS | Encounter Summary ---
Author Organization [facility] Address [address] [place] [address] Care Team Providers Care Senior Coldfusion Developer Name Role Phone Esteban Salgado MD Primary Care Provider [phone] Reason for Visit * Reason Onset Date Comments Weight Loss 03/16/2025 Encounter Details Date Type Department Care Team (Late st Contact Info) Description 03/16/[address] [facility] [address] [place] [address] [place] [phone] Talha Murrieta MD [address] [place] [address] [address] [place] [phone] Social History Tobacco Use Types Packs/Day Years [...] as of this encounter Progress Notes * Talha Murrieta MD - 03/16/2025 11:50 AM EDT 1. The patient should be entering his blood pressure at home. He should contact our office if he notices any evidence of low blood pressures. 2. Please make sure the patient is drinking adequate amounts of water. 3. Please schedule patient for a sooner appointment with Franklin Naylor Lindsey, alise or me. 4. Also, please instruct the patient to contact his primary care physician in order to discuss his weight loss further as it may be secondary to a noncardiac issue that will need further evaluation. * Fannie Potts MA - 03/16/2025 11:21 AM EDT I called the pt regarding the below msg, he tells me his usual wt is 160 from February 06-Mar 09 hiswt was fluctuating between 154.5-158.5 and from Mar 10 - this am it went from 153 to now 150 lbs. There has been no change in his diet , the only thing he can think of is that he has begun to do some brisk indoor walking in an effort to strengthen his right leg. His medications remain the same and even though he is not particularly fond of the diuretics he advises he takes all meds as prescribed. I asked about his bp, but he tells me that he felt no reason to suspect that his bp was off in any way so he did not check this. When I asked if there was any symptoms he needed to report and he stating he is asymptomatic at this time.He is requesting an appt to see you much sooner than the appt given to him for 07/21/25 * Irina Baig - 03/16/2025 11:06 AM EDT Patient called and stated that he has been experiencing a dramatic weight loss over the last few weeks. He stated that at first his weight gradually decreased, and over the past week he seems to be losing weight rapidly. Patient would like a call back today at [phone]. He said he can be reached anytime except for 4-6:30. documented in this encounter Plan of Treatment Upcoming Encounters Date Type Department Care Team (Late st Contact Info) Description 03/26/2025 2:00 PM EDT Office Visit [facility] [address] [place] [address] [address] [place] [address] Talha Murrieta MD [address] [place] [address] [address] [place] [address] documented as of this encounter Visit Diagnoses Not on filedocumented in this encounter Care Teams Senior Coldfusion Developer Relationship Specialty Start Date End Date Esteban Salgado MD [address] [place] [address] [address] [facility] [place] [address] PCP - General Internal Medicine 06/01/20 documented as of this encounter
--- OUTSIDE RECORDS SUMMARY | 2025-03-23 06:42 | XMS_ITS | Patient Health Record ---
Author Organization [facility] Address [address] [place] [address] Care Team Providers Care Commercial Account Officer Name Role Phone Rl Fernando MD Primary Care Provider Oleg Adams Jr Unavailable Reason For Referral No Information Medications Medication SIG (Take, Route, Frequency, Duration) Notes Start Date End Date Status Vitamin D 2000iu Act flynn Aspir-81 81mg Active Vitamin C 500mg Acti ve Melatonin 0.5g Activ e traZODone HCl 150mg Active Terazosin HCl 5mg Ac tive [place] 3 1000mg Activ e Multi Vitamin/Minerals 07/01/20242024 [...] Status W/U Status Risk Notes Problem Constipation (09711190) Constipation (564.00) Active confirmed Plan Of Treatment No Information Insurance Providers Payer Name Payer Address Payer Phone Subscriber Number Group Number Insured Name Patient Relationship to Insured Coverage Start Date Coverage End Date MEDICARE OF [place] [address] [place] [id number] [phone] [id number] PIA Panda FELECIA Self - patient is the insured MED[employer] ATT[employer] CLAIMS [address] [place] [address] [id number] PIA Panda FELECIA Self - patient is the insured Medical (General) History Medical History History ICD Code Hx of tubular adenoma and hyperplastic p olyps Enlarged prostate Insomnia Surgical History Surgery Date(Month/Year) Appendectomy Wedge resection of an abscess from right midddle lobe of lung Right inguinal herniorrhaphy cyst removal on tip of finger
== END 2025-03-23 06:40 | disposition home or self-care (01) ==
LOC: HO.LAB 06:39
PROVIDERS: Absent Provider Internal Medicine; PCP Internal Medicine; Visit Provider Internal Medicine
DX: I42.8 Other cardiomyopathies (principal); N40.1 Benign prostatic hyperplasia with lower urinary tract symptoms; R35.0 Frequency of micturition; E78.00 Pure hypercholesterolemia, unspecified
CPT/HCPCS: 36415; 80053; 80061; 82607; 82746; 83735; 84439; 84443; 85025; 85652; 86140